=== PATIENT | male | born 1940 | race Caucasian/White ===

== ENCOUNTER 2019-02-21 08:00 | Outpatient (CLI) | payer MEDICARE, OTHER ==
[2019-02-21 18:49] LABS: BASOPHILS # (AUTO) 0.1 10^3/uL (0.0-0.1); BASOPHILS % (AUTO) 1.1 %; EOSINOPHILS # (AUTO) 0.2 10^3/uL (0.0-0.7); EOSINOPHILS % (AUTO) 2.1 %; HGB - HEMOGLOBIN 16.4 g/dL (14.0-18.0); LYMPHOCYTES # (AUTO) 1.9 10^3/uL (1.5-3.5); LYMPHOCYTES % (AUTO) 26.8 %; MEAN CORPUSCULAR HEMOGLOBIN 30.9 pg (27.0-31.0); MEAN CORPUSCULAR HGB CONC 32.5 g/dL (32.0-36.0); MEAN CORPUSCULAR VOLUME 95.1 fL (80.0-94.0); MEAN PLATELET VOLUME 12.6 fL (7.4-11.4); MONOCYTES # (AUTO) 0.8 10^3/uL (0.0-1.0); MONOCYTES % (AUTO) 10.8 %; NEUTROPHILS # (AUTO) 4.2 10^3/uL (1.5-6.6); NEUTROPHILS % (AUTO) 58.9 %; PLT - PLATELET COUNT 208 10^3/uL (130-450); RED CELL DISTRIBUTION WIDTH 12.2 % (12.0-15.0); WHITE BLOOD COUNT 7.1 x10^3/uL (4.8-10.8)
[2019-02-21 19:31] LABS: CARBON DIOXIDE - CO2 25 mmol/L (21-32); CHLORIDE 103 mmol/L (101-111); SODIUM 139 mmol/L (135-145)
[2019-02-21 19:32] LABS: ALKALINE PHOSPHATASE 60 IU/L (42-121); ALT ALANINE AMINOTRANSFERASE 23 IU/L (10-60); AST ASPARTATE AMINOTRANSFERASE 22 IU/L (10-42); BILIRUBIN,TOTAL 0.9 mg/dL (0.2-1.0); BUN - BLOOD UREA NITROGEN 21 mg/dL (6-20); CALCIUM 8.9 mg/dL (8.5-10.3); CREATININE 0.9 mg/dL (0.6-1.2); GFR - MDRD 82 (>89); GLUCOSE 132 mg/dL (70-100); TOTAL PROTEIN 7.4 g/dL (6.7-8.2)
[2019-02-21 19:33] LABS: ALBUMIN/GLOBULIN RATIO 1.2 (1.0-2.2); CHOL/HDL RATIO 6.1 (<5.0); CHOLESTEROL 221 mg/dL; HDL CHOLESTEROL 36 mg/dL; LDL CHOLESTEROL,CALCULATED 158 mg/dL; LDL/HDL RATIO 4.4 (<3.6); VLDL CHOLESTEROL 27 mg/dL
[2019-02-21 19:46] LABS: CREATININE,URINE 175.4 mg/dL; MICROALBUM/CREATININE RATIO,UR 7.4 ug/mg (<30.0); MICROALBUMIN,URINE 1.3 mg/dL (0-300.0)
[2019-02-21 20:04] LABS: HB2 TOTAL 17.9 g/dL; HEMOGLOBIN A1C 0.93 g/dL; HEMOGLOBIN A1C % 6.9 % (4.6-6.2)
== END 2019-02-21 23:59 | disposition home or self-care (01) ==
LOC: LAB.WCP 08:00
PROVIDERS: ATTEND Family Medicine
DX: E11.65 Type 2 diabetes mellitus with hyperglycemia (principal); I10 Essential (primary) hypertension; E78.5 Hyperlipidemia, unspecified
CPT/HCPCS: 36415; 80053; 80061; 82043; 82570; 83036; 83721; 84443; 85025

== ENCOUNTER 2023-07-28 14:23 | Outpatient (CLI) | payer MEDICARE, OTHER | END 2023-07-28 14:24 | disposition critical access hospital (66) | LOC: EMS 14:23 | DX: R41.0 Disorientation, unspecified (principal); R09.89 Other specified symptoms and signs involving the circulatory and respiratory systems; R29.810 Facial weakness; R53.1 Weakness | CPT/HCPCS: A0425; A0429 ==

== ENCOUNTER 2023-07-28 14:49 | Inpatient (IN) | payer MEDICARE, OTHER ==
--- NOTE | 2023-07-28 14:49 | ED Physician Documentation ---
PD HPI FOCAL NEURO - Stated complaint Stated Complaint: RT SIDE FACIAL DROOP/L SIDED NEGLECT - History obtained from History obtained from: EMS - Additional information Additional information: 82-year-old male presents via EMS for altered mental status with left-sided neglect. The patient was in his usual state of health . Yesterday though reported that he "lifted something very heavy," and last seen normal around 11 PM last night when he went to bed. This morning the noted that he seemed weak, He slept in much longer than normal and he was still in bed when his daughter came over in the early afternoon and felt like he was confused and that "something was wrong." EMS was activated and EMS noted a mild right facial droop as well as left sided neglect. Patient is a limited historian, GCS 14, He is confused and is not sure why he is here today. He tells me that he has not been able to see since he woke up this morning. He denies any other concerns today. He denies any chest pain, no difficulty breathing, no abdominal pain, no nausea vomiting or diarrhea.His tells me he has been treated for a right foot diabetic and infection. He was Receiving hyperbaric therapy for this but apparently stopped a couple weeks ago because "changes in his vision." He was supposed to resume in the next week. Some additional history received later in the evening from son. The patient apparently had a surgery For his right foot diabetic infection a few months ago and may have sustained a small stroke or TIA during the procedure and was apparently combative and confused afterwards. He had been doing well recently though and son saw him last on when he was awake alert active. Patient is normally independent though does not do a lot of physical activity according to son. Review of Systems Unable to obtain: Confused Eyes: reports: Loss of vision PD PAST MEDICAL HISTORY - Past Medical History Past Medical History: Yes Cardiovascular: Deep vein thrombosis Neuro: TIA Endocrine/Autoimmune: Type 2 diabetes Derm: Other (Diabetic wound) - Present Medications Home Medications: Ambulatory Orders Medication Instructions Recorded Confirmed Acetaminophen [Acetaminophen Extra 1 tab PO DAILY 07/28/23 07/28/23 Strength] Apixaban [Eliquis] 1 tab PO DAILY 07/28/23 07/28/23 Doxycycline [Vibramycin] 1 tab PO DAILY 07/28/23 07/28/23 Gentamicin Sulfate 1 applic TOP DAILY 07/28/23 07/28/23 metFORMIN [Glucophage] 1 tab PO BID 07/28/23 07/28/23 - Allergies Allergies/Adverse Reactions: Allergies Allergy/AdvReac Type Severity Reaction Status Date / Time No Known Drug Allergies Allergy Verified 07/28/23 15:26 PD ED PE NORMAL - Vitals Vital signs reviewed: Yes - General General: Other (Oriented x 3 but confused, appears ill but nontoxic.) - HEENT HEENT: Atraumatic, PERRL, Moist mucous membranes, Other (Patient unable to cooperate with EOMI, states that he cannot see.) - Neck Neck: Supple, no meningeal sign, No bony TTP, No adenopathy - Cardiac Cardiac: No murmur, No gallop, Other (Irregular) - Respiratory Respiratory: No respiratory distress, Other (Scattered rhonchi no distress no wheezing) - Abdomen Abdomen: Normal bowel sounds, Soft, Non tender, Non distended - Derm Derm: Normal color, Warm and dry, No rash, Other (Chronic right foot diabetic ulceration.) - Neuro Eye Opening: Spontaneous Motor: Obeys Commands Verbal: Confused GCS Score: 14 - Free text exam Free text exam: Left-sided neglect, I am unable to assess any visual field as patient tells me he cannot see, has a right word gaze, does not move eyes to the left. He does not follow commands in the left arm but does move the left leg with equal strength to the right, normal right arm range of motion. No obvious facial droop. Normal speech. Patient restless, does not answer all questions approp riately. PD ED PE EXPANDED - Neuro Neuro: Confused, LUE (no UE sensation, not following commands), CN deficit, Dyscongugate gaze, Normal speech. No: Normal motor, Normal Sensation, Normal finger nose (unable to coooperate) NIHSS - Time Time: 14:50 - Level of Consciousness Level of consciousness: (0) Alert, Keenly responsive LOC Questions: (1) Answers one Q correctly LOC Commands: (1) Performs one correctly - Gaze Best Gaze: (2) Forced deviation - Visual Visual: (3) Bilateral Hemianopia - Facial Palsy Facial Palsy: (0) Normal, symmetrical movement - Motor Arms (both separate) Motor Arm (right): (4) No movement Motor Arm (left): (0) No drift - Motor Legs (both separate) Motor Leg (right): (0) No drift Motor Leg (left): (0) No drift - Limb Ataxia Limb Ataxia: (2) Present in 2 limbs - Sensory Sensory: (1) Dpjq-ah-ktfnwbud loss - Best Language Best Language: (0) No aphasia - Dysarthria Dysarthria: (0) Normal - Extinction and Inattention (formally neg Extinction and inattention: (2) Profound do-inattention or extinction to more than one modality - Total Score/Results Total Score/Result: 16 Results - Vitals Vitals: Vital Signs - 24 hr 07/28/23 07/28/23 07/28/23 15:17 15:25 16:40 Temperature 37 C 37.1 C 37.2 C Heart Rate 105 H 100 97 Respiratory 25 H 27 H 33 H Rate Blood Pressure 148/86 H 122/106 H 146/92 H O2 Saturation 94 95 95 07/28/23 07/28/23 07/28/23 18:17 18:30 19:40 Temperature Heart Rate 107 H 107 H 109 H Respiratory 21 17 29 H Rate Blood Pressure 144/109 H 162/98 H 134/80 H O2 Saturation 94 95 94 Oxygen O2 Source Room air - EKG (time done) No standard instances EKG releavant findings:: EKG personally interpreted by author of this note. Relevant findings are: Rate: Rate (enter#) (107) Rhythm: Atrial fibrillation QRS: Normal Ischemia: Normal ST segments Computer interpretation: Agree with computer - Labs Labs: Laboratory Tests 07/28/23 07/28/23 07/28/23 15:17 15:17 15:17 WBC 11.2 H RBC 5.33 Hgb 16.5 Hct 51.1 MCV 95.9 H MCH 31.0 MCHC 32.3 RDW 12.9 Plt Count 187 MPV 12.0 H Neut # (Auto) 10.1 H Lymph # (Auto) 0.7 L Valley # (Auto) 0.3 Eos # (Auto) 0.0 Baso # (Auto) 0.0 Absolute Nucleated RBC 0.00 Nucleated RBC % 0.0 PT 12.3 INR 1.1 Sodium 135 Potassium 4.4 Chloride 100 L Carbon Dioxide 26 Anion Gap 9.0 BUN 18 Creatinine 1.0 Estimated GFR (MDRD) 72 L Glucose 173 H Calcium 9.4 Total Bilirubin 0.7 AST 14 ALT 7 L Alkaline Phosphatase 51 Troponin I High Sens 7.0 Total Protein 7.2 Albumin 4.3 Globulin 2.9 Albumin/Globulin Ratio 1.5 Lipase 13 Urine Color Urine Clarity Urine pH Ur Specific [place] Urine Protein Urine Glucose (UA) Urine Ketones Urine Occult Blood Urine Nitrite Urine Bilirubin Urine Urobilinogen Ur Leukocyte Esterase Urine RBC Urine WBC Ur Squamous Epith Cells Urine Bacteria Urine Culture Comments Nasal Influenza B PCR Nasal Influenza A PCR Nasal RSV (PCR) Nasal SARS-CoV-2 (PCR) 07/28/23 07/28/23 16:35 17:20 WBC RBC Hgb Hct MCV MCH MCHC RDW Plt Count MPV Neut # (Auto) Lymph # (Auto) Valley # (Auto) Eos # (Auto) Baso # (Auto) Absolute Nucleated RBC Nucleated RBC % PT INR Sodium Potassium Chloride Carbon Dioxide Anion Gap BUN Creatinine Estimated GFR (MDRD) Glucose Calcium Total Bilirubin AST ALT Alkaline Phosphatase Troponin I High Sens Total Protein Albumin Globulin Albumin/Globulin Ratio Lipase Urine Color YELLOW Urine Clarity CLEAR Urine pH 7.0 Ur Specific [place] 1.020 Urine Protein TRACE Urine Glucose (UA) 250 H Urine Ketones 15 H Urine Occult Blood NEGATIVE Urine Nitrite NEGATIVE Urine Bilirubin NEGATIVE Urine Urobilinogen 0.2 (NORMAL) Ur Leukocyte Esterase NEGATIVE Urine RBC 0-5 Urine WBC 0-3 Ur Squamous Epith Cells NONE SEEN Urine Bacteria Rare Urine Culture Comments NOT INDICATED Nasal Influenza B PCR NOT DETECTED Nasal Influenza A PCR NOT DETECTED Nasal RSV (PCR) NOT DETECTED Nasal SARS-CoV-2 (PCR) NOT DETECTED - Rads (name of study) No standard instances Relevant Findings:: Final report received PD Medical Decision Making - ED course Complexity details: reviewed old records, reviewed results, re-evaluated patient, considered differential, d/w patient, d/w family ED course: 82-year-old male presented with altered mental status today, last known well was around 7 PM last night. On exam, he is exhibiting left-sided neglect, is mildly confused, restless. We were concerned for stroke and patient went directly to CT scanAfter I evaluated him in the ambulance. CT scan showed a suspected temporal lobe infarct. There is no sign of hemorrhage as the patient is on Eliquis. Therefore did additional workup and the patient was sent for MRI which confirmed a large temporal lobe infarct. Patient's labs are fairly reassuring, chest x-ray reveals Possible pulmonary edema versus pneumonia atelectasis your aspiration. He has not required supplemental oxygen Here. At the patient is in atrial fibrillation/flutter, it is not known if this is new for him, he is on Eliquis as an outpatient though this may be for a prior DVT. Family is not aware if he has atrial fibrillation And last EKG in our system is about 10 years ago which showed normal sinus rhythm. Patient does not appear to be on any rate controlling medication at home so this may be a new diagnosis of atrial fibrillation. We did give the patient 5 mg of IV metoprolol and are monitoring his heart rate at this time. His blood pressure has been stable. I did go ahead and obtain blood cultures and started the patient on ceftriaxone and azithromycin for possible pneumonia seen on chest x-ray. I think less likely given reassuring lab work and lack of supplemental the patient was not a candidate for intervention given the duration of symptoms and last known well as well as being on Eliquis. He will require hospitalization however for occupational therapy, physical therapy and additional stroke workup, likely echocardiogram, and monitoring of his possibly new atrial fibrillation. I have updated his son at the bedside and have requested admit from the hospitalist service. Of note patient did receive 1 mg of IV Haldol and 1 mg of IV Ativan prior to MRI. He tolerated MRI well and post MRI neuro examIs unchanged. The patient does appear to have more is actually somewhat improved, the patient does appear to be moving the left arm more but continues to have left-sided neglect and near complete visual field deficit. Departure - Departure Disposition: [facility] DC/Xfer Clinical Impression: Altered mental status Qualifiers: Altered mental status type: unspecified Qualified Code(s): R41.82 - Altered mental status, unspecified Cerebrovascular accident (CVA) Qualifiers: CVA mechanism: other Qualified Code(s): I63.89 - Other cerebral infarction Atrial fibrillation Qualifiers: Atrial fibrillation type: unspecified Qualified Code(s): I48.91 - Unspecified atrial fibrillation CHF (congestive heart failure) Qualifiers: Heart failure type: unspecified Heart failure chronicity: unspecified Qualified Code(s): I50.9 - Heart failure, unspecified Community acquired pneumonia Qualifiers: Lung location: unspecified part of lung Condition: Good Forms: PCP List
[2023-07-28 15:23] LABS: BASOPHILS % (AUTO) 0.3 %; HCT - HEMATOCRIT 51.1 % (42.0-52.0); HGB - HEMOGLOBIN 16.5 g/dL (14.0-18.0); LYMPHOCYTES # (AUTO) 0.7 10^3/uL (1.5-3.5); LYMPHOCYTES % (AUTO) 5.9 %; MEAN CORPUSCULAR HGB CONC 32.3 g/dL (32.0-36.0); MEAN CORPUSCULAR VOLUME 95.9 fL (80.0-94.0); MONOCYTES # (AUTO) 0.3 10^3/uL (0.0-1.0); MONOCYTES % (AUTO) 2.8 %; NEUTROPHILS # (AUTO) 10.1 10^3/uL (1.5-6.6); NEUTROPHILS % (AUTO) 90.6 %; PLT - PLATELET COUNT 187 10^3/uL (130-450); RED BLOOD COUNT 5.33 10^6/uL (4.70-6.10); RED CELL DISTRIBUTION WIDTH 12.9 % (12.0-15.0); WHITE BLOOD COUNT 11.2 x10^3/uL (4.8-10.8)
[2023-07-28 15:32] LABS: INR 1.1 (0.8-1.2); PT - PROTHROMBIN TIME 12.3 secs (9.9-12.6)
[2023-07-28 15:36] LABS: ALBUMIN 4.3 g/dL (3.2-5.5); ALBUMIN/GLOBULIN RATIO 1.5 (1.0-2.2); BILIRUBIN,TOTAL 0.7 mg/dL (0.2-1.0); CALCIUM 9.4 mg/dL (8.5-10.3); POTASSIUM 4.4 mmol/L (3.5-4.5); TOTAL PROTEIN 7.2 g/dL (6.4-8.9)
--- NOTE | 2023-07-28 16:35 | XRAY Report ---
PROCEDURE: Chest 1V INDICATIONS: chest pain TECHNIQUE: Two AP views of the chest was acquired. COMPARISON: None. FINDINGS: Surgical changes and devices: None. Lungs and pleura: No pleural effusions or pneumothorax. Bilateral diffuse interstitial prominence an d bibasilar patchy consolidation, left greater than right. Mediastinum: Mediastinal contours appear normal. Heart size is at the upper limits of normal. Aorti c arch is calcified, indicating atherosclerosis. Bones and chest wall: No suspicious bony lesions. Overlying soft tissues appear unremarkable. IMPRESSION: 1.Pulmonary edema with borderline enlarged cardiomegaly which may be secondary to heart failure. Cons ider correlation with ECHO. 2.Bibasilar patchy consolidation, left greater than right, may represent atelectasis, aspiration and/ or pneumonia. Reviewed by: Oralia Madsen MD on 07/28/2023 4:34 PM PST Approved by: Oralia Madsen MD on 07/28/2023 4:34 PM PST Station ID: [id number]
--- NOTE | 2023-07-28 16:45 | CT Report ---
PROCEDURE: HEAD WO INDICATIONS: suspected stroke, left sided deficits TECHNIQUE: Noncontrast 4.5 mm thick angled axial sections acquired from the foramen magnum to the vertex. For r adiation dose reduction, the following was used: automated exposure control, adjustment of mA and/or kV according to patient size. COMPARISON: None. FINDINGS: Image quality: Excellent. CSF spaces: Basal cisterns are patent. No extra-axial fluid collections. Ventricles are normal in size and shape. Brain: Focal low density can be seen involving the inferior aspect of the right temporal lobe, as see n on series 4 image 28 and on series 10 image 51. No midline shift. No intracranial masses or hemorrhage. Barrios-white matter interface is normal. Sym metric calcification of the basal ganglia can be seen, which is considered to be within normal limits for age. Focal calcification can also be seen involving the inferomedial right frontal lobe, as on series 4 image 22, which is regarded to be benign. Skull and face: Calvarium and visualized facial bones are intact, without suspicious lesions. Sinuses: Visualized sinuses and mastoids are clear. IMPRESSION: These imaging findings are highly suspicious for a subacute infarction (days in age) involving the ri ght temporal lobe. No findings of hemorrhagic conversion can be seen. If there is strong clinical concern for a stroke, please consider a dedicated brain MRI for further e valuation (assuming that there is no contraindication to MRI). Reviewed by: Abhi Talavera MD on 07/28/2023 3:44 PM [facility] Approved by: Abhi Talavera MD on 07/28/2023 3:44 PM [facility] Station ID: [id number]
[2023-07-28 16:48] LABS: BILIRUBIN,URINE NEGATIVE (NEGATIVE); GLUCOSE, URINE (UA) 250 mg/dL (NEGATIVE); KETONES,URINE (UA) 15 mg/dL (NEGATIVE); LEUKOCYTE ESTERASE, URINE NEGATIVE (NEGATIVE); NITRITE,URINE NEGATIVE (NEGATIVE); OCCULT BLOOD,URINE NEGATIVE (NEGATIVE); PROTEIN,URINE TRACE mg/dL (NEGATIVE); UROBILINOGEN,URINE 0.2 (NORMAL) E.U./dL (NORMAL)
[2023-07-28 16:49] LABS: CLARITY,URINE CLEAR (CLEAR)
[2023-07-28 16:58] LABS: BACTERIA,URINE Rare /HPF (None Seen); RBC,URINE 0-5 /HPF (0-5); SQUAMOUS EPITHELIAL CELL,UR NONE SEEN (<= Few); WBC,URINE 0-3 /HPF (0-3)
[2023-07-28] MEDS ORDERED: HALOPERIDOL 5 MG/ML VIAL IVP STA (17:16)
[2023-07-28] MEDS ORDERED: LORazepam 2 MG/ML VIAL IVP STA (18:35)
[2023-07-28 18:47] LABS: INFLUENZA A- RESP PCR PANEL NOT DETECTED; INFLUENZA B - RESP PCR PANEL NOT DETECTED; RSV- RESP PCR PANEL NOT DETECTED; SARS-CoV-2 -RESP PCR PANEL NOT DETECTED
[2023-07-28] MEDS ORDERED: cefTRIAXone 2 GM in SODIUM CHLORIDE 0.9% MINIBAG 100 ML IV STA (18:49)
[2023-07-28] MEDS ORDERED: AZITHROMYCIN INJ 500 MG in SODIUM CHLORIDE 0.9% 250 ML IV STA (18:49)
[2023-07-28] MEDS ORDERED: METOPROLOL 5 MG/5 ML VIAL IVP STA ×2 (18:50→20:03)
--- NOTE | 2023-07-28 19:51 | MRI Report ---
PROCEDURE: BRAIN WO INDICATIONS: subacute stroke? TECHNIQUE: Noncontrast axial T1 spin echo, axial T2 fast spin echo, sagittal and axial FLAIR, coronal T2 fast sp in echo, axial gradient echo, axial diffusion and ADC through the brain. COMPARISON: Head CT performed the same day FINDINGS: Image quality: Excellent. CSF Spaces: Basal cisterns are patent. No extra-axial fluid collections. Ventricles are normal in size and shape. Brain: No intracranial masses or hemorrhage. Barrios/white matter interface is normal. Brainstem appe ars normal. There is a large area of restricted diffusion involving much of the right temporal lobe e xtending into the right posterior parietal region. There is a mildly increased T2 signal of the ramos x and loss of sulcation spur. Findings are a background of periventricular T2 hyperintensity and smal l right parietal lacunar infarct. No T1 signal to suggest acute hemorrhage. Normal intravascular flow voids are present. Skull and face: Calvarium has normal marrow signal. Orbits appear normal. Sinuses: Sinuses and mastoids are clear. IMPRESSION: 1. Findings suggestive of large right temporal lobe infarct without hemorrhage. Reviewed by: Irene Eli MD on 07/28/2023 7:50 PM PST Approved by: Irene Eli MD on 07/28/2023 7:50 PM PST Station ID: [id number]
[2023-07-28] MEDS ORDERED: cefTRIAXone 2 GM VIAL ONE (20:00)
[2023-07-28] MEDS ORDERED: ASPIRIN CHEW 81 MG TABLET PO STA (20:32)
[2023-07-28] MEDS ORDERED: ASPIRIN 300 MG SUPP PR STA (21:03)
[2023-07-28] MEDS ORDERED: iohexoL-300 100 ML VIAL IVP ONE (22:28)
--- NOTE | 2023-07-28 22:54 | CT Report ---
PROCEDURE: CT angiogram of head and neck INDICATIONS: Known CVA TECHNIQUE: After the administration of intravenous contrast, 1 mm thick sections acquired from the aortic arch t hrough the [place]. 3-dimensional nahyztm-fipohwejb-eeqhjvttib (MIP) and/or volume renderin g reformats were acquired of the central intracranial vasculature and neck separately. For radiation dose reduction, the following was used: automated exposure control, adjustment of mA and/or kV acco rding to patient size. CONTRAST: Intravenous contrast was administered COMPARISON: CT head 07/20/2023, MRI brain 07/20/2023 FINDINGS: Exam is nondiagnostic as there is patient motion artifact. Additionally, contrast extravasated and no contrast is seen on the current exam. Ordering provider in the emergency department was notified of extravasation. Previously seen hypodensity in the right temporal lobe is not visualized on current exam. Visualized neck soft tissues demonstrate no gross abnormalities. Degenerative changes of the visualized spine. No acute osseous abnormality.. IMPRESSION: Nondiagnostic exam due to contrast extravasation and motion artifact. Reviewed by: Carolyn Eng MD on 07/28/2023 10:53 PM PST Approved by: Carolyn Eng MD on 07/28/2023 10:53 PM PST Station ID: [id number]
[2023-07-28] MEDS ORDERED: ONDANSETRON 4 MG/2 ML VIAL IVP PRN (23:35)
[2023-07-28] MEDS ORDERED: SODIUM CHLORIDE 0.9% 1,000 ML IV SCH (23:45)
[2023-07-28] MEDS ORDERED: ACETAMINOPHEN 650 MG SUPP PR PRN (23:49)
[2023-07-29] MEDS: SODIUM CHLORIDE FLUSH 0.9% 10 ML SYRINGE IVP SCH ×3 (01:04→18:18)
[2023-07-29] MEDS ORDERED: hydrALAZINE INJ 20 MG/ML VIAL IVP PRN (01:28)
[2023-07-29] MEDS ORDERED: CEFEPIME 2 GM in SODIUM CHLORIDE 0.9% MINIBAG 100 ML IV SCH ×2 (02:00→21:00)
[2023-07-29] MEDS ORDERED: VANCOMYCIN INJ 2 GM in SODIUM CHLORIDE 0.9% 500 ML IV ONE (03:00)
[2023-07-29] MEDS ORDERED: LORazepam 2 MG/ML VIAL IVP PRN (03:01)
[2023-07-29] MEDS: ACETAMINOPHEN 1,000 MG/100 ML 1,000 MG/100 ML BAG IV PRN ×2 (03:17→11:01)
--- NOTE | 2023-07-29 03:47 | HISTORY & PHYSICAL EXAMINATION ---
Chief Complaint - Chief Complaint Chief Complaint: dysarthria, ams, cva History of Present Illness - History of Present Illness HPI Comment/Other: pt brought in to hospital d/t ams and concern for cva. over the last 24 hours, pt has become weak and altered and having complete L sided neglect. EMS reported possible R facial droop. pt's son states his sister came over to parent's house and noticed pt on the couch and awake but no really responsive. had reported that pt was sleepy and tired all day. pt not fully oriented but answer simple questions and denied any chest pain but feels overall confused. pt's son states that pt had surgery for diabetic foot infection some time back and during that time he also suffered a stroke. pt is normally independent and per son, he was doing fine around kristopher time. History - Past Medical History Cardiovascular: reports: Deep vein thrombosis Neuro: reports: TIA Endocrine/Autoimmune: reports: Type 2 diabetes Derm: reports: Other (Diabetic wound) Meds/Allgy - Home Medications Home Medications: Ambulatory Orders Medication Instructions Recorded Confirmed Acetaminophen [Acetaminophen Extra 1 tab PO DAILY 07/28/23 07/28/23 Strength] Apixaban [Eliquis] 1 tab PO DAILY 07/28/23 07/28/23 Doxycycline [Vibramycin] 1 tab PO DAILY 07/28/23 07/28/23 Gentamicin Sulfate 1 applic TOP DAILY 07/28/23 07/28/23 metFORMIN [Glucophage] 1 tab PO BID 07/28/23 07/28/23 - Allergies Allergies/Adverse Reactions: Allergies Allergy/AdvReac Type Severity Reaction Status Date / Time No Known Drug Allergies Allergy Verified 07/28/23 15:26 Review of Systems - Other Findings Other Findings: unable to obtain fully at this time d/t ams and cva Exam - Vital Signs Vital Signs: Vital Signs x48h Temp Pulse Pulse Resp BP BP Pulse Ox 07/29/23 03:00 39.2 C H 117 H 25 H 149/63 H 96 07/29/23 02:00 39.3 C H 90 23 132/91 H 95 07/29/23 01:00 39.3 C H 110 H 24 183/123 H 94 07/29/23 00:45 115 H 21 158/99 H 94 07/29/23 00:26 38.6 C H 179/120 H 07/29/23 00:00 108 H 25 H 132/75 H 94 07/28/23 23:00 120 H 25 H 166/93 H 95 07/28/23 22:00 124 H 25 H 174/126 H 95 07/28/23 21:00 37.9 C 123 H 24 157/121 H 97 07/28/23 20:00 111 H 25 H 176/98 H 96 - Physical Exam Comments/Other: gen - awake, alert, not oriented or able to converse fully heent - eomi, dysarthric speech noted heart - per ed charting lungs - per ed charting abd - soft, nt neuro - L sided neglect in setting of cva Conclusion/Plan - Lab Results Fish Bones: 07/28/23 15:17 07/28/23 15:17 - Other Other Results/Comments: pt with - - R temporal CVA with h/o cva and dvt CTA head/neck inconclusive given motion artifact continue with permissive htn and eliquis held for now on-call neuro ok with keeping pt here in icu follow stroke protocol - pna concern for possible aspiration in setting of above on vanc + cefepime covid and flu NEG - rapid a-fib contributory to and in setting of above blood thinner held for now d/t cva and concern for hemorrhagic conversion monitor for now, with rate currently in low 100s will check 2d echo, trop is negative on-call cardio ok with keeping pt here in icu - t2dm with hyperglycemia exacerbated in setting of above ssi, check a1c f/u labs, replete electrolytes further orders per clinical course
--- NOTE | 2023-07-29 04:41 | ED Physician Documentation ---
ED Addendum - Addendum Addendum: 07/29/23 04:38 It was brought to my attention by nursing staff that the IV site had blown during the attempt to do CTA on the patient had no access vascularly. The patient had been an extremely difficult IV placement with multiple attempts unsuccessfully by nursing staff. They felt they were out of options and asked if I could place a central line. The patient was quite agitated and furthermore, had left-sided neglect. He continually was attempting to turn onto his right side with his left arm flopping over. He could not relax his shoulder and as such, accessing either the IJ or the subclavian veins on either side would be difficult even if the patient held still in that position. However, patient was agitated and very restless and I felt that given the circumstances, it would be easier to position and keep his legs still and furthermore, present a lower risk to the patient in his current condition if I placed a femoral line. As such, the patient was sterilely prepped and draped, local anesthesia applied, and femoral vein accessed just medial to the patient's femoral pulse. The guidewire did go and without resistance, as did the catheter. Good, dark, nonpulsatile blood had returned upon initially accessing the vein, and good blood return was also noted through the catheter ports. Line was secured and sterilely dressed. The patient had already been interviewed by the hospitalist and was sent to CTA before being transferred to the floor.
[2023-07-29 05:13] LABS: BASOPHILS % (AUTO) 0.2 %; HCT - HEMATOCRIT 45.8 % (42.0-52.0); HGB - HEMOGLOBIN 15.1 g/dL (14.0-18.0); LYMPHOCYTES # (AUTO) 1.2 10^3/uL (1.5-3.5); LYMPHOCYTES % (AUTO) 9.2 %; MEAN CORPUSCULAR HEMOGLOBIN 31.1 pg (27.0-31.0); MEAN CORPUSCULAR VOLUME 94.4 fL (80.0-94.0); MEAN PLATELET VOLUME 12.8 fL (7.4-11.4); MONOCYTES % (AUTO) 7.7 %; NEUTROPHILS # (AUTO) 10.6 10^3/uL (1.5-6.6); NEUTROPHILS % (AUTO) 82.5 %; PLT - PLATELET COUNT 197 10^3/uL (130-450); RED BLOOD COUNT 4.85 10^6/uL (4.70-6.10); RED CELL DISTRIBUTION WIDTH 13.1 % (12.0-15.0); WHITE BLOOD COUNT 12.8 x10^3/uL (4.8-10.8)
[2023-07-29 05:20] LABS: PARTIAL THROMBOPLASTIN TIME 28.5 secs (24.9-33.3)
[2023-07-29 05:24] LABS: CALCIUM, IONIZED 1.09 mmol/L (1.15-1.33); VBG PH 7.376 (7.31-7.41)
[2023-07-29 05:25] LABS: INR 1.3 (0.8-1.2); PT - PROTHROMBIN TIME 14.3 secs (9.9-12.6)
[2023-07-29 05:37] LABS: ALBUMIN/GLOBULIN RATIO 1.7 (1.0-2.2); BILIRUBIN,TOTAL 0.7 mg/dL (0.2-1.0); CALCIUM 8.7 mg/dL (8.5-10.3); CREATININE 1.1 mg/dL (0.6-1.3); MAGNESIUM 1.6 mg/dL (1.7-2.3); POTASSIUM 3.8 mmol/L (3.5-4.5); TOTAL PROTEIN 6.4 g/dL (6.4-8.9)
[2023-07-29] MEDS ORDERED: CALCIUM GLUC 1,000MG/50ML-NACL 1,000 MG/50 ML BAG IV ONE (05:39)
[2023-07-29] MEDS ORDERED: MAGNESIUM SULFATE 2 GRAM 2 GM/50 ML BAG IV ONE (05:39)
[2023-07-29] MEDS ORDERED: POTASSIUM CHLOR 20 MEQ/100 ML 20 MEQ/100 ML BAG IV ONE ×3 (05:39→15:39)
[2023-07-29] MEDS: INSULIN REGULAR HUMAN 300 UNIT/3 ML VIAL SUBQ SCH ×3 (06:30→18:35)
--- NOTE | 2023-07-29 07:34 | PHARMACY PROGRESS NOTE ---
- Therapy Status Vancomycin regimen day #: 2 Therapy status: Awaiting steady state Basis for treatment: Empirical Treatment indication: ASPIRATION PNEUMONIA Trough goal: AUC: 400-600 Concurrent antibiotics: CEFEPIME 2G Q8H - BHAVESH Risk Risk level for Acute Kidney Injury: High Acute Kidney Injury risk factors: Chronic baseline hypertension, Diabetes, Admi ssion to ICU - Monitoring and Recommendation Clinical response to treatment: I&O Previous 24 hours 07/27/23 07/28/23 07/29/23 23:59 23:59 23:59 Intake Total 350 800 Output Total 725 Balance 350 75 Lab Results 07/29/23 07/28/23 04:24 15:17 BUN 19 18 Creatinine 1.1 1.0 Estimated GFR (MDRD) 64 L 72 L Monitoring plan: Daily serum creatinine Next trough due prior to maintenance dose #: 2 Next trough due (date/time): 07/30/23 3:00 Areas for additional monitoring: Therapy de-escalation based on culture results, Acute Kidney Injury Pharmacy recommendation: Continue current regime
[2023-07-29] MEDS ORDERED: DEXTROSE 5%-0.9% NACL 1,000 ML IV SCH (08:00)
--- NOTE | 2023-07-29 08:27 | PROVIDER PROGRESS NOTE ---
Hospitalist Cross-cover Note - Cross-Cover Note Cross-Cover Note: 0800 This morning I have been updated by the RN about the following: Patient has 743 mL urinary retention on bladder scan Patient has diabetic left foot ulcer that is draining green fluid Patient just spiked a temperature of 39.3 C. His resting heart rate is 120 and rapid A-fib No further aspirin was ordered for his stroke by admitting Telemedicine Dr Patient has a femoral line, for his IV access, placed by ER doctor Patient is n.p.o. due to obtundation and he is a diabetic. His ordered IV fluids are NS, without D5 Assessment/Plan: 1) Acute CVA We have no field service technician here today or for the next 4 days to obtain an echo Because his CT angio head and neck were inconclusive, I will order carotid Doppler I will order continued aspirin per rectum daily Add neurochecks every 4 hours 2) Afib with RVR Begin scheduled IV Lopressor 2.5 every 6 hours for rate control Remain off the anticoagulation for the next 24 hours to prevent hemorrhagic conversion of the stroke 3) Acute urinary retention I will order a Muro insertion for this patient who is in critical condition 5) DM Type 2 I will change his iv fluids to D5 NS and order POC glucose checks every 6 hours and sliding scale insulin coverage and hypoglycemia protocol 6) Diabetic foot ulcer I will order wound swab culture by RN I will order General Surgery consult to evaluate if debridement is needed I will change his empiric IV Vanco and cefepime to empiric IV Zosyn (for anaerobic coverage) Vanco 1155 Dr Duran (ID at [facility]) who has been his provider, called here (her cell: [phone]) to give us his complex PMH and give ID recommendations, after pt's called Dr Duran. This patient has a history of PVD. He underwent a left lower extremity fem-pop bypass i May 2023 at [place] which failed and had to be redone. They used his right arm blood vessel for this. He had a complication of him having a stroke. The patient has had osteomyelitis of the left foot for which she treats him, he was on IV antibiotics then put on p.o. Linezolid and on Doxycycline suppressive therapy for Pseudomonas plus topical Gentamicin cream for suppressing Pseudomonas overgrowth. He was also getting hyperbaric oxygen treatment of the left leg at the [facility] which she finished [address] Duran saw the foot 2 weeks ago which looked like it was stable and healing. I reviewed with Dr. Duran his current presentation and the ongoing fever, his mild elevation of WBC, CXR result, appearance of foot wound, and the admitting provider's choice of antibiotics. She recommends we use iv Cefepime, Vanco and Flagyl. She recommends following his CRP, since his last CRP, followed by her, was 0.8. She recommends a consult from our Wound clinic. I said that I ordered a General Surgery consult to look at the wound, since wound clinic does not do inpatient consults. She said she personally called the Wound clinic here today and asked them to have them do the consult. She recommends a foot x-ray to look at the bone. If the wound or the foot start to look worse than today, then we should consider getting an orthopedic consult to consider amputation. Additional Assessment/Plan: 6) Osteomyelitis Plan: All the above were ordered. I spoke to Dr Nash (Gen Surg), since possibly no MD is at Wound clinic today (since today is a Tue before the ) 1300 I updated the at bedside about all the above. Daughter was also at bedside. The XRay of the foot does show changes of osteo, no abscess suspected. said that patient wants to be a DNR. Additional Assessment/Plan: 7) Obtunded Cont supportive care and watch if he has any recovery from the stroke Will discuss in 24 hrs, as may want to start Comfort Measures then and have him start with Hospice. 1800 ICU Nurse reported that pt is oliguric: mann output the last 3 hrs is 18, 14, 20 ml/hr only. Additional Assessment/Plan: (8) Oliguria I will order a saline 500 cc bolus I will increase maintenace fluids from 75 cc/hr to 100 cc/hr Follow BMP daily Avoid nephrotoxins CRITICAL CARE TIME SPENT: 70 min (reviewing chart, placing orders, checking results, seeing patient, speaking with Dr Duran, speaking to Dr Nash. speaking with and daughter, rechecking on patient)
[2023-07-29] MEDS ORDERED: LIDOCAINE 2% URO-JET 5 ML SYRINGE UR ONE (08:34)
[2023-07-29] MEDS ORDERED: PIPERACILLIN/TAZOBACTAM 3.375 GM in SODIUM CHLORIDE 0.9% MINIBAG 100 ML IV SCH ×2 (09:00→12:00)
[2023-07-29] MEDS: ASPIRIN 300 MG SUPP PR SCH (09:09)
[2023-07-29] MEDS: PANTOPRAZOLE 40 MG VIAL IVP SCH (09:10)
[2023-07-29] MEDS: SODIUM CHLORIDE FLUSH 0.9% 10 ML SYRINGE IVP PRN ×4 (09:18→18:17)
[2023-07-29 09:40] LABS: CALCIUM, IONIZED 1.13 mmol/L (1.15-1.33); VBG PH 7.396 (7.31-7.41)
[2023-07-29 09:53] LABS: MAGNESIUM 2.1 mg/dL (1.7-2.3); POTASSIUM 3.8 mmol/L (3.5-4.5)
[2023-07-29] MEDS ORDERED: CYANOCOBALAMIN 1,000 MCG/ML VIAL IM ONE (10:43)
--- NOTE | 2023-07-29 11:14 | PHARMACY PROGRESS NOTE ---
- Best Possible Medication History Admit Date and Time: 07/28/23 0823 Processed by: Pharmacy Medication History completed: Yes Patient Interview: Pt unable to participate Secondary Source(s): Spouse/Significant other, Insurance records As the person ultimately responsible for medication therapy, providers are able to order a medication from an existing home medication list in [facility] via the "Reconcile Routine" prior to Confirmation of that medication by client support representative. Such practice is discouraged except when the physician, in their clinical judgment, deems that a medical need exists for a medication without regard to previous use.
[2023-07-29 11:38] LABS: ESTIMATED AVERAGE GLUCOSE 134 mg/dL (70-100); HEMOGLOBIN A1c% 6.3 % (4.27-6.07)
[2023-07-29] MEDS: CEFEPIME 2 GM in SODIUM CHLORIDE 0.9% MINIBAG 100 ML IV SCH ×2 (12:11→20:43)
[2023-07-29] MEDS: metroNIDAZOLE 500 MG/100 ML 500 MG/100 ML BAG IV SCH ×2 (12:17→20:29)
--- NOTE | 2023-07-29 12:57 | XRAY Report ---
PROCEDURE: Foot 1-2V LT INDICATIONS: L foot ulcer and Hx of osteo TECHNIQUE: 2 views of the foot were acquired. COMPARISON: None. FINDINGS: Bones: No fractures or dislocations. Osseous erosion in the first medial metatarsal head. No suspici ous bony lesions. Diffuse osseous mineralization. Soft tissues: No suspicious soft tissue calcifications or masses. No radiopaque foreign body within the soft tissues. IMPRESSION: 1.No acute bony abnormality. 2.Osseous erosion in the first medial metatarsal head suggestive of osteomyelitis. 3.No radiopaque foreign body within the soft tissues. Reviewed by: Oralia Madsen MD on 07/29/2023 12:55 PM PST Approved by: Oralia Madsen MD on 07/29/2023 12:55 PM PST Station ID: [id number]
[2023-07-29] MEDS: METOPROLOL 5 MG/5 ML VIAL IVP SCH ×2 (14:08→22:14)
[2023-07-29] MEDS ORDERED: VANCOMYCIN INJ 1.5 GM in SODIUM CHLORIDE 0.9% 500 ML IV SCH (15:00)
[2023-07-29] MEDS: VANCOMYCIN INJ 1 GM in SODIUM CHLORIDE 0.9% 250 ML IV SCH (15:04)
--- NOTE | 2023-07-29 17:25 | CONSULTATION NOTE ---
Referring Provider Name of Referring Provider:: Andrew Neal) Consult Date: 07/29/23 (left foot wound) Chief Complaint - Chief Complaint Chief Complaint: acute CVA, AMS History of Present Illness - Admitted From Admitted From:: ED - History Obtained From Records Reviewed: yes History obtained from: RN, chart, primary team Exam Limitations: patient does not answer questions at this time 2/2 altered mental status - History of Present Illness HPI Comment/Other: Patient admitted with acute CVA. He has a left foot wound which has been followed by an outside wound clinic and Dr. Duran of [facility] at [facility]. She has been treating him for osteomyelitis and has him on chronic IV antibiotics. He has also been treated with hyperbaric oxygen. Since arrival, the patient has been noted to have signs of aspiration pneumonia, and has been febrile and tachycardic. To assess his left foot wound, I have been consulted. History - Past Medical History Cardiovascular: reports: Deep vein thrombosis, Atrial fibrillation Respiratory: reports: Shortness of breath, Sleep apnea Neuro: reports: CVA Endocrine/Autoimmune: reports: Type 2 diabetes GI: reports: None : reports: None Psych: reports: None Musculoskeletal: reports: Scoliosis, Chronic back pain Derm: reports: Other Other Past Medical History: hemhoragic stroke 04/23, vision decrease after hyperbaric treatments, last one mid July 2023. Left foot wound since approximately December 2022 - Past Surgical History Ortho: reports: Hip replacement Cardiovascular: reports: Vascular surgery Meds/Allgy - Home Medications Home Medications: Ambulatory Orders Medication Instructions Recorded Confirmed Apixaban [Eliquis] 1 tab PO BID 07/28/23 07/29/23 Doxycycline [Vibramycin] 1 tab PO BIDWM 07/28/23 07/29/23 Gentamicin Sulfate 1 applic TOP DAILY 07/28/23 07/28/23 metFORMIN [Glucophage] 1 tab PO BID 07/28/23 07/28/23 Metoprolol Tartrate [Lopressor] 25 mg PO BID 07/29/23 07/29/23 - Allergies Allergies/Adverse Reactions: Allergies Allergy/AdvReac Type Severity Reaction Status Date / Time No Known Drug Allergies Allergy Verified 07/28/23 15:26 Review of Systems - Constitutional Constitutional: reports: Other (unable to obtain due to altered mental status) Exam - Vital Signs Reviewed Vital Signs: Yes Vital Signs: Vital Signs x48h Temp Pulse Resp BP BP Pulse Ox O2 Flow Rate 07/29/23 17:00 37.5 C 96 20 148/80 H 98 1 07/29/23 16:00 37.6 C 97 20 140/75 H 97 1 07/29/23 15:00 37.5 C 95 19 141/76 H 97 1 07/29/23 14:08 137/67 H 07/29/23 14:00 37.6 C 114 H 23 137/67 H 93 1 07/29/23 13:00 37.6 C 94 24 123/70 94 1 07/29/23 12:00 37.7 C 97 17 131/69 H 98 07/29/23 11:06 96 07/29/23 11:00 38.1 C H 106 H 21 139/69 H 91 L 07/29/23 10:00 38.1 C H 105 H 20 125/72 96 - Physical Exam General Appearance: positive: No acute distress, Other (resting, stirs to voice) Eyes Bilateral: positive: Other (resting, eyes not assessed) ENT: positive: Dry mucous membranes Neck: positive: Trachea midline Respiratory: positive: No respiratory distress Cardiovascular: positive: Irregularly irregular Peripheral Pulses: positive: 2+ Abdomen: positive: Non-tender Extremities: positive: Other (left foot with mepilex dressing in place. Dressing is c/d/i. When removed, patient has a 1cm wound which is about 3mm deep with a clean appearing base and no drainage on the dressing. There is no sign of necrosis and no surrounding erythema. His foot is warm but not hot.) Neurologic/Psychiatric: positive: Other (resting, stirs to voice, obtunded since presentation) Conclusion and Plan - Lab Results Laboratory Results 07/29/23 14:54: Potassium 3.9 07/29/23 09:30: C-Reactive Protein 0.6 07/29/23 09:30: VBG pH 7.396, Ionized Calcium 1.13 L 07/29/23 09:30: Potassium 3.8, Magnesium 2.1 07/29/23 09:30: Estimat Average Glucose 134 H, Hemoglobin A1c % 6.3 H 07/29/23 04:24: Vitamin B12 187 07/29/23 04:24: B-Natriuretic Peptide 243 H 07/29/23 04:24: VBG pH 7.376, Ionized Calcium 1.09 L 07/29/23 04:24: Phosphorus 3.4 07/29/23 04:24: Lactate Dehydrogenase 143 07/29/23 04:24: Sodium 134 L, Potassium 3.8, Chloride 101, Carbon Dioxide 26, Anion Gap 7.0, BUN 19, Creatinine 1.1, Estimated GFR (MDRD) 64 L, Glucose 156 H, Calcium 8.7, Magnesium 1.6 L, Total Bilirubin 0.7, AST 13, ALT 8 L, Alkaline Phosphatase 42, Total Protein 6.4, Albumin 4.0, Globulin 2.4, Albumin/Globulin Ratio 1.7 07/29/23 04:24: PT 14.3 H, INR 1.3 H, APTT 28.5 07/29/23 04:24: WBC 12.8 H, RBC 4.85, Hgb 15.1, Hct 45.8, MCV 94.4 H, MCH 31.1 H, MCHC 33.0, RDW 13.1, Plt Count 197, MPV 12.8 H, Neut # (Auto) 10.6 H, Lymph # (Auto) 1.2 L, [place] # (Auto) 1.0, Eos # (Auto) 0.0, Baso # (Auto) 0.0, Absolute Nucleated RBC 0.00, Nucleated RBC % 0.0 07/29/23 00:30: Nasal Screen MRSA (PCR) NEGATIVE 07/28/23 19:50: Troponin I High Sens 10.7 07/28/23 17:20: Nasal Influenza B PCR NOT DETECTED, Nasal Influenza A PCR NOT DETECTED, Nasal RSV (PCR) NOT DETECTED, Nasal SARS-CoV-2 (PCR) NOT DETECTED 07/28/23 16:35: Urine Color YELLOW, Urine Clarity CLEAR, Urine pH 7.0, Ur Specific [place] 1.020, Urine Protein TRACE, Urine Glucose (UA) 250 H, Urine Ketones 15 H, Urine Occult Blood NEGATIVE, Urine Nitrite NEGATIVE, Urine Bilirubin NEGATIVE, Urine Urobilinogen 0.2 (NORMAL), Ur Leukocyte Esterase NEGATIVE, Urine RBC 0-5, Urine WBC 0-3, Ur Squamous Epith Cells NONE SEEN, Urine Bacteria Rare, Urine Culture Comments NOT INDICATED 07/28/23 15:17: Sodium 135, Potassium 4.4, Chloride 100 L, Carbon Dioxide 26, Anion Gap 9.0, BUN 18, Creatinine 1.0, Estimated GFR (MDRD) 72 L, Glucose 173 H, Calcium 9.4, Total Bilirubin 0.7, AST 14, ALT 7 L, Alkaline Phosphatase 51, Troponin I High Sens 7.0, Total Protein 7.2, Albumin 4.3, Globulin 2.9, Albumin/Globulin Ratio 1.5, Lipase 13 07/28/23 15:17: PT 12.3, INR 1.1 07/28/23 15:17: WBC 11.2 H, RBC 5.33, Hgb 16.5, Hct 51.1, MCV 95.9 H, MCH 31.0, MCHC 32.3, RDW 12.9, Plt Count 187, MPV 12.0 H, Neut # (Auto) 10.1 H, Lymph # (Auto) 0.7 L, [place] # (Auto) 0.3, Eos # (Auto) 0.0, Baso # (Auto) 0.0, Absolute Nucleated RBC 0.00, Nucleated RBC % 0.0 - Diagnostic Imaging Results Diagnostic Imaging Results: positive: Final report reviewed Diagnostic Imaging Results Comments: L foot XR today shows changes in the left 1st metatarsal consistent with osteomyelitis. I do not have prior films available for comparison. - Consultation Note Consultation Note: 82 y/o M with acute CVA and AMS. I am consulted to assess left foot, chronic diabetic wound. -wound base appears healthy, no significant drainage, no necrotic tissue, no sign of active cellulitis. - XR does continue to show changes consistent with osteomyelitis, for which the patient is chronically being treated. Recommend continuing outpatient antibiotic regimen. - CRP is wnl and stable from recent studies - Patient has had fevers and leukocytosis since presentation but is also has suspected aspiration pneumonia. If he has no other source of infection, and appears to be worsening, the only "debridement" that would be able to eliminate his foot as a source for infection would be an amputation. I do not preform these operations, and recommend orthopedic consultation if further consideration for amputation is requested, understanding that the patient is a very poor surgical candidate at this time. General surgery will follow peripherally. Please call with additional questions or concerns.
[2023-07-29] MEDS ORDERED: SODIUM CHLORIDE 0.9% 500 ML IV ONE (17:59)
[2023-07-29] MEDS: DEXTROSE 5%-0.9% NACL 1,000 ML IV SCH ×2 (18:23→22:10)
[2023-07-30] MEDS: INSULIN REGULAR HUMAN 300 UNIT/3 ML VIAL SUBQ SCH ×2 (00:38→06:16)
[2023-07-30] MEDS: ACETAMINOPHEN 1,000 MG/100 ML 1,000 MG/100 ML BAG IV PRN (02:11)
[2023-07-30] MEDS: SODIUM CHLORIDE FLUSH 0.9% 10 ML SYRINGE IVP SCH ×4 (02:11→23:41)
[2023-07-30] MEDS: VANCOMYCIN INJ 1 GM in SODIUM CHLORIDE 0.9% 250 ML IV SCH ×2 (03:41→16:25)
[2023-07-30] MEDS: CEFEPIME 2 GM in SODIUM CHLORIDE 0.9% MINIBAG 100 ML IV SCH ×3 (03:54→21:36)
[2023-07-30] MEDS: metroNIDAZOLE 500 MG/100 ML 500 MG/100 ML BAG IV SCH ×3 (04:08→21:35)
[2023-07-30 05:08] LABS: MAGNESIUM 1.7 mg/dL (1.7-2.3); PHOSPHORUS 2.6 mg/dL (2.5-5.0); POTASSIUM 3.8 mmol/L (3.5-4.5)
[2023-07-30 05:09] LABS: VBG PH 7.357 (7.31-7.41)
[2023-07-30 05:10] LABS: CALCIUM, IONIZED 1.1 mmol/L (1.15-1.33)
[2023-07-30] MEDS ORDERED: POTASSIUM CHLOR 20 MEQ/100 ML 20 MEQ/100 ML BAG IV ONE (06:00)
[2023-07-30] MEDS: METOPROLOL 5 MG/5 ML VIAL IVP SCH (06:23)
[2023-07-30] MEDS ORDERED: CALCIUM GLUC 1,000MG/50ML-NACL 1,000 MG/50 ML BAG IV ONE (07:00)
[2023-07-30] MEDS ORDERED: MAGNESIUM SULFATE 2 GRAM 2 GM/50 ML BAG IV ONE (08:00)
[2023-07-30] MEDS: INSULIN LISPRO 300 UNIT/3 ML PEN SUBQ SCH ×4 (08:03→21:43)
[2023-07-30 08:09] LABS: BASOPHILS # (AUTO) 0.1 10^3/uL (0.0-0.1); BASOPHILS % (AUTO) 0.5 %; EOSINOPHILS # (AUTO) 0.1 10^3/uL (0.0-0.7); EOSINOPHILS % (AUTO) 0.5 %; HCT - HEMATOCRIT 41.1 % (42.0-52.0); HGB - HEMOGLOBIN 13.7 g/dL (14.0-18.0); LYMPHOCYTES # (AUTO) 1.1 10^3/uL (1.5-3.5); LYMPHOCYTES % (AUTO) 9.9 %; MEAN CORPUSCULAR HGB CONC 33.3 g/dL (32.0-36.0); MEAN PLATELET VOLUME 12.5 fL (7.4-11.4); MONOCYTES # (AUTO) 1.3 10^3/uL (0.0-1.0); MONOCYTES % (AUTO) 11.6 %; NEUTROPHILS # (AUTO) 8.5 10^3/uL (1.5-6.6); NEUTROPHILS % (AUTO) 77.2 %; PLT - PLATELET COUNT 146 10^3/uL (130-450); RED BLOOD COUNT 4.28 10^6/uL (4.70-6.10); RED CELL DISTRIBUTION WIDTH 13.1 % (12.0-15.0)
[2023-07-30] MEDS: ASPIRIN 300 MG SUPP PR SCH (08:12)
[2023-07-30] MEDS: PANTOPRAZOLE 40 MG VIAL IVP SCH (08:13)
[2023-07-30 08:26] LABS: CALCIUM 8.3 mg/dL (8.5-10.3); POTASSIUM 3.9 mmol/L (3.5-4.5)
[2023-07-30 08:38] LABS: CHOLESTEROL 161 mg/dL; HDL CHOLESTEROL 32 mg/dL; LDL CHOLESTEROL,CALCULATED 110 mg/dL; LDL/HDL RATIO 3.4 (<3.6); TRIGLYCERIDES 97 mg/dL (48-352); VLDL CHOLESTEROL 19 mg/dL
[2023-07-30] MEDS ORDERED: ENOXAPARIN 40 MG/0.4 ML SYRINGE SUBQ SCH (09:00)
--- NOTE | 2023-07-30 10:08 | Ultrasound Report ---
PROCEDURE: Carotid Doppler Complete INDICATIONS: CVA TECHNIQUE: Color and pulse Doppler interrogation was performed of both carotid systems, with image documentation and velocity measurements. COMPARISON: None. FINDINGS: Right side: Brachial blood pressure: 159/102 mm Hg. Common carotid artery peak systolic velocity: 83 cm/sec. Internal carotid artery peak systolic velocity: 94 cm/sec. Internal carotid artery end diastolic velocity: 29 cm/sec. External carotid artery peak systolic velocity: 232 cm/sec. ICA/CCA peak systolic ratio: 1.1 . Spectral broadening is present. Barrios scale imaging description: Mild atherosclerotic plaque. Percent internal carotid artery stenosis: Less than 50 percent stenosis. Vertebral artery: Flow direction is antegrade. Left side: Brachial blood pressure: 138/69 mm Hg. Common carotid artery peak systolic velocity: 69 cm/sec. Internal carotid artery peak systolic velocity: 164 cm/sec. Internal carotid artery end diastolic velocity: 26 cm/sec. External carotid artery peak systolic velocity: 242 cm/sec. ICA/CCA peak systolic ratio: 2.4 . Barrios scale imaging description: moderate to severe atherosclerotic plaque. Spectral broadening is present Percent internal carotid artery stenosis: 50-69 percent stenosis. Vertebral artery: Flow direction is antegrade. IMPRESSION: 1. In the right internal carotid artery, there is less than 50 percent stenosis based on peak systoli c velocity criteria. 2. In the left internal carotid artery, there is 50-69 percent stenosis based on peak systolic veloci ty criteria. Visually, moderate to severe plaque is present. 3. Antegrade blood flow within the right vertebral artery. 4. Antegrade blood flow within the left vertebral artery. The estimate of stenosis included in the report of the imaging study was calculated using the [facility]-end orsed standards of carotid artery stenosis. Reviewed by: Saul Luna MD on 07/30/2023 10:07 AM [facility] Approved by: Saul Luna MD on 07/30/2023 10:07 AM PST Station ID: [id number]
[2023-07-30] MEDS ORDERED: ACETAMINOPHEN 325 MG TABLET PO PRN (11:04)
[2023-07-30] MEDS ORDERED: DEXTROSE 5%-0.9% NACL 1,000 ML IV SCH (11:05)
[2023-07-30 15:12] LABS: VANCOMYCIN,TROUGH 10.8 ug/mL
--- NOTE | 2023-07-30 15:25 | PROVIDER PROGRESS NOTE ---
Subjective - Subjective Pt reports feeling: Improved (Speaking, interacting, eating) Objective - Vital Signs/Intake & Output Reviewed Vital Signs: Yes Vital Signs: Vital Signs Temp Pulse Resp BP Pulse Ox 07/30/23 14:00 37.1 C 109 H 20 95 07/30/23 13:00 121 H 28 H 155/97 H 94 07/30/23 12:00 101 H 18 150/97 H 94 Intake & Output: Intake & Output 07/27/23 07/28/23 07/29/23 07/30/23 23:59 23:59 23:59 23:59 Intake Total 350 2942 1840 Output Total 1467 1545 Balance 350 1475 295 - Objective General Appearance: positive: No acute distress, Alert Eyes Bilateral: positive: EOMI, No lid inflammation ENT: positive: ENT inspection nml, No signs of dehydration Neck: positive: Nml inspection, No JVD Respiratory: positive: No respiratory distress, Breath sounds nml Cardiovascular: positive: No murmur, Irregularly irregular Abdomen: positive: Non-tender, Nml bowel sounds, No distention Skin: positive: Warm, Dry Extremities: positive: Non-tender, No pedal edema Neurologic/Psychiatric: positive: Oriented x3, CN's nml (2-12), Other (L arm and hand 4/5 strength.) - Lab Results Fish Bones: 07/31/23 04:30 07/31/23 04:30 Other Labs: Lab Results x24hrs 07/30/23 07/30/23 07/30/23 Range/Units 14:49 04:30 04:30 WBC (4.8-10.8) x10^3/uL RBC (4.70-6.10) 10^6/uL Hgb (14.0-18.0) g/dL Hct (42.0-52.0) % MCV (80.0-94.0) fL MCH (27.0-31.0) pg MCHC (32.0-36.0) g/dL RDW (12.0-15.0) % Plt Count (130-450) 10^3/uL MPV (7.4-11.4) fL Neut # (Auto) (1.5-6.6) 10^3/uL Lymph # (Auto) (1.5-3.5) 10^3/uL Carroll # (Auto) (0.0-1.0) 10^3/uL Eos # (Auto) (0.0-0.7) 10^3/uL Baso # (Auto) (0.0-0.1) 10^3/uL Absolute Nucleated RBC x10^3/uL Nucleated RBC % /100WBC VBG pH (7.31-7.41) Ionized Calcium (1.15-1.33) mmol/L Sodium 135 (135-145) mmol/L Potassium 3.9 (3.5-4.5) mmol/L Chloride 104 (101-111) mmol/L Carbon Dioxide 25 (21-32) mmol/L Anion Gap 6.0 (6-13) BUN 17 (6-20) mg/dL Creatinine 1.0 (0.6-1.3) mg/dL Estimated GFR (MDRD) 72 L (>89) Glucose 120 H (74-104) mg/dL Calcium 8.3 L (8.5-10.3) mg/dL Phosphorus (2.5-5.0) mg/dL Magnesium (1.7-2.3) mg/dL C-Reactive Protein (<0.5) mg/dL B-Natriuretic Peptide (5-100) pg/mL Triglycerides 97 (48-352) mg/dL Cholesterol 161 ( - 200) mg/dL LDL Cholesterol, Calc 110 ( - 129) mg/dL VLDL Cholesterol 19 mg/dL HDL Cholesterol 32 L (60 - ) mg/dL LDL/HDL Ratio 3.4 (<3.6) Cholesterol/HDL Ratio 5.0 (<5.0) Vancomycin Trough 10.8 ug/mL 07/30/23 07/30/23 07/30/23 Range/Units 04:30 04:30 04:30 WBC 11.0 H (4.8-10.8) x10^3/uL RBC 4.28 L (4.70-6.10) 10^6/uL Hgb 13.7 L (14.0-18.0) g/dL Hct 41.1 L (42.0-52.0) % MCV 96.0 H (80.0-94.0) fL MCH 32.0 H (27.0-31.0) pg MCHC 33.3 (32.0-36.0) g/dL RDW 13.1 (12.0-15.0) % Plt Count 146 (130-450) 10^3/uL MPV 12.5 H (7.4-11.4) fL Neut # (Auto) 8.5 H (1.5-6.6) 10^3/uL Lymph # (Auto) 1.1 L (1.5-3.5) 10^3/uL Carroll # (Auto) 1.3 H (0.0-1.0) 10^3/uL Eos # (Auto) 0.1 (0.0-0.7) 10^3/uL Baso # (Auto) 0.1 (0.0-0.1) 10^3/uL Absolute Nucleated RBC 0.00 x10^3/uL Nucleated RBC % 0.0 /100WBC VBG pH 7.357 (7.31-7.41) Ionized Calcium 1.10 L (1.15-1.33) mmol/L Sodium (135-145) mmol/L Potassium 3.8 (3.5-4.5) mmol/L Chloride (101-111) mmol/L Carbon Dioxide (21-32) mmol/L Anion Gap (6-13) BUN (6-20) mg/dL Creatinine (0.6-1.3) mg/dL Estimated GFR (MDRD) (>89) Glucose (74-104) mg/dL Calcium (8.5-10.3) mg/dL Phosphorus 2.6 (2.5-5.0) mg/dL Magnesium 1.7 (1.7-2.3) mg/dL C-Reactive Protein (<0.5) mg/dL B-Natriuretic Peptide (5-100) pg/mL Triglycerides (48-352) mg/dL Cholesterol ( - 200) mg/dL LDL Cholesterol, Calc ( - 129) mg/dL VLDL Cholesterol mg/dL HDL Cholesterol (60 - ) mg/dL LDL/HDL Ratio (<3.6) Cholesterol/HDL Ratio (<5.0) Vancomycin Trough ug/mL 07/30/23 07/30/23 07/29/23 Range/Units 04:30 04:30 18:20 WBC (4.8-10.8) x10^3/uL RBC (4.70-6.10) 10^6/uL Hgb (14.0-18.0) g/dL Hct (42.0-52.0) % MCV (80.0-94.0) fL MCH (27.0-31.0) pg MCHC (32.0-36.0) g/dL RDW (12.0-15.0) % Plt Count (130-450) 10^3/uL MPV (7.4-11.4) fL Neut # (Auto) (1.5-6.6) 10^3/uL Lymph # (Auto) (1.5-3.5) 10^3/uL Carroll # (Auto) (0.0-1.0) 10^3/uL Eos # (Auto) (0.0-0.7) 10^3/uL Baso # (Auto) (0.0-0.1) 10^3/uL Absolute Nucleated RBC x10^3/uL Nucleated RBC % /100WBC VBG pH (7.31-7.41) Ionized Calcium (1.15-1.33) mmol/L Sodium (135-145) mmol/L Potassium 4.0 (3.5-4.5) mmol/L Chloride (101-111) mmol/L Carbon Dioxide (21-32) mmol/L Anion Gap (6-13) BUN (6-20) mg/dL Creatinine (0.6-1.3) mg/dL Estimated GFR (MDRD) (>89) Glucose (74-104) mg/dL Calcium (8.5-10.3) mg/dL Phosphorus (2.5-5.0) mg/dL Magnesium (1.7-2.3) mg/dL C-Reactive Protein 0.9 H (<0.5) mg/dL B-Natriuretic Peptide 111 H (5-100) pg/mL Triglycerides (48-352) mg/dL Cholesterol ( - 200) mg/dL LDL Cholesterol, Calc ( - 129) mg/dL VLDL Cholesterol mg/dL HDL Cholesterol (60 - ) mg/dL LDL/HDL Ratio (<3.6) Cholesterol/HDL Ratio (<5.0) Vancomycin Trough ug/mL 07/29/23 Range/Units 14:54 WBC (4.8-10.8) x10^3/uL RBC (4.70-6.10) 10^6/uL Hgb (14.0-18.0) g/dL Hct (42.0-52.0) % MCV (80.0-94.0) fL MCH (27.0-31.0) pg MCHC (32.0-36.0) g/dL RDW (12.0-15.0) % Plt Count (130-450) 10^3/uL MPV (7.4-11.4) fL Neut # (Auto) (1.5-6.6) 10^3/uL Lymph # (Auto) (1.5-3.5) 10^3/uL Carroll # (Auto) (0.0-1.0) 10^3/uL Eos # (Auto) (0.0-0.7) 10^3/uL Baso # (Auto) (0.0-0.1) 10^3/uL Absolute Nucleated RBC x10^3/uL Nucleated RBC % /100WBC VBG pH (7.31-7.41) Ionized Calcium (1.15-1.33) mmol/L Sodium (135-145) mmol/L Potassium 3.9 (3.5-4.5) mmol/L Chloride (101-111) mmol/L Carbon Dioxide (21-32) mmol/L Anion Gap (6-13) BUN (6-20) mg/dL Creatinine (0.6-1.3) mg/dL Estimated GFR (MDRD) (>89) Glucose (74-104) mg/dL Calcium (8.5-10.3) mg/dL Phosphorus (2.5-5.0) mg/dL Magnesium (1.7-2.3) mg/dL C-Reactive Protein (<0.5) mg/dL B-Natriuretic Peptide (5-100) pg/mL Triglycerides (48-352) mg/dL Cholesterol ( - 200) mg/dL LDL Cholesterol, Calc ( - 129) mg/dL VLDL Cholesterol mg/dL HDL Cholesterol (60 - ) mg/dL LDL/HDL Ratio (<3.6) Cholesterol/HDL Ratio (<5.0) Vancomycin Trough ug/mL Assessment/Plan - Problem List (1) Acute CVA (cerebrovascular accident) Impression: The patient started awakening last night, was able to swallow, was able to talk with his by phone. Today he has only L arm weakness, is eating, speaking. Because his CT angio head and neck were inconclusive, I ordered carotid Doppler and that showed moder Bilat cardotid disease Fasting lipids showed an LDL of 110, despite supposedly taking a statin (deidra jiang today said she thinks he was not compliant) Plan: Await Echo result (we have no help desk technician here today or for the next several days to obtain an Echo) Allowing permissive hypertension yesterday and today. Then I will resume his BP meds Holding his oral anticoagulant for 48 hours to prevent hemorrhagic transformation of the stroke and I will resume his anticoagulant tomorrow Continued po aspirin daily Cont high dose statin Cont neurochecks every 4 hours PT and OT richard ordered I brought his up to date at bedside and another daughter at bedside today. It will probably be recommended by PT to have further stroke rehab at SNF (2) Aspiration pneumonia After being admitted from the ER yesterday, he had a fever that lasted for several hours yesterday. The sources appear to be an aspiration pneumonia and possibly his osteomyelitis and diabetic foot ulcer. WBC 11 then 12 yesterday and today WBC is 11 again. Yesterday and today I spoke to his ID specialist, Dr Duran re all his sources of infection. Plan: Remain on empiric iv Vanco, cefepime and Flagyl Cont probiotic (3) Diabetic foot ulcer Yesterday and today I spoke to his ID specialist, Dr Duran re his Hx of the foot ulcer and the osteo, and how both were being treated using Linezolid and Doxycycline and topical Gentamicin cream. The pt "did not allow his to see the wound". Family said he would not allow them to be in charge of any of his meds, and said he is very stubborn. Dr Duran thinks he was not reliable with taking his antibx. A wound swab was sent for culture Appreciate General Surgery consult Plan: Await wound swab cx results Remain on empiric ic Vanco, cefepime and Flagyl Dressing changes every 2 days I discussed need to be compliant and recommended that family should supervise his dosing of meds. Pt said he would think about it. (4) Osteomyelitis Yesterday and today I spoke to his ID specialist, Dr Duran re his Hx of the foot ulcer and the osteo, and how both were being treated with oral Linezolid and on Doxycycline and topical antibx cream, However she suspected he was not compliant with taking the antibx. Today I updated Dr Duran that the XRay did show osteo, but no soft tissue involvement except the ulcer Plan: Remain on empiric ic Vanco, cefepime and Flagyl Dr Duran wants him to get a PICC line and finish treatment of the osteo using iv antibx. Since he will likely need a SNF for stroke rehab, he could get iv antibx at the SNF as well. (5) PVD He underwent a left lower extremity fem-pop bypass in May 2023 at [place] which failed and had to be redone. They used his right arm blood vessel for this. He had a complication of him having a stroke. He needed hyperbaric treatment at [facility] which was recently completed. Plan: Will resume his cardiovascular meds now that he is awake and can swallow (6) Afib with RVR At adm HR was 100-120. I started hism on scheduled IV Lopressor 2.5 every 6 hours for rate control Plan: Will stop iv meds and begin his po meds for rate control Remain off the anticoagulation for the next 24 hours to prevent hemorrhagic conversion of the stroke, I plan on resuming his DOAC tomorrow (7) DM Type 2 His A1c came back at Plan: Start carb controlled solid diet Cont iv fluids D5 NS until assured he is eating Cont POC glucose checks now ac&hs and sliding scale insulin coverage and hypoglycemia protocol (8) Acute urinary retention I ordered a Muro insertion Plan: Cont Muro to monitor I's and O's and will remove tomorrow if stable
[2023-07-30] MEDS ORDERED: SODIUM CHLORIDE 0.9% 250 ML IV ONE (16:16)
[2023-07-30] MEDS: METOPROLOL TARTRATE 25 MG TABLET PO SCH (16:25)
[2023-07-30] MEDS: FAMOTIDINE 20 MG TABLET PO SCH (21:36)
[2023-07-30] MEDS: ATORVASTATIN 40 MG TABLET PO SCH (21:36)
[2023-07-31] MEDS: CEFEPIME 2 GM in SODIUM CHLORIDE 0.9% MINIBAG 100 ML IV SCH ×3 (04:28→19:53)
[2023-07-31] MEDS: VANCOMYCIN INJ 1 GM in SODIUM CHLORIDE 0.9% 250 ML IV SCH ×2 (04:44→15:27)
[2023-07-31] MEDS: metroNIDAZOLE 500 MG/100 ML 500 MG/100 ML BAG IV SCH ×3 (04:44→20:06)
[2023-07-31 05:01] LABS: BASOPHILS # (AUTO) 0.1 10^3/uL (0.0-0.1); BASOPHILS % (AUTO) 0.8 %; EOSINOPHILS # (AUTO) 0.2 10^3/uL (0.0-0.7); EOSINOPHILS % (AUTO) 2.6 %; HCT - HEMATOCRIT 42.6 % (42.0-52.0); HGB - HEMOGLOBIN 14.2 g/dL (14.0-18.0); LYMPHOCYTES # (AUTO) 1.2 10^3/uL (1.5-3.5); LYMPHOCYTES % (AUTO) 12.7 %; MEAN CORPUSCULAR HEMOGLOBIN 31.8 pg (27.0-31.0); MEAN CORPUSCULAR HGB CONC 33.3 g/dL (32.0-36.0); MEAN CORPUSCULAR VOLUME 95.5 fL (80.0-94.0); MEAN PLATELET VOLUME 11.9 fL (7.4-11.4); MONOCYTES % (AUTO) 11.1 %; NEUTROPHILS # (AUTO) 6.6 10^3/uL (1.5-6.6); NEUTROPHILS % (AUTO) 72.6 %; PLT - PLATELET COUNT 139 10^3/uL (130-450); RED BLOOD COUNT 4.46 10^6/uL (4.70-6.10); RED CELL DISTRIBUTION WIDTH 12.8 % (12.0-15.0); WHITE BLOOD COUNT 9.2 x10^3/uL (4.8-10.8)
[2023-07-31 05:18] LABS: CALCIUM 8.7 mg/dL (8.5-10.3); CREATININE 0.9 mg/dL (0.6-1.3); CRP - C-REACTIVE PROTEIN 2.7 mg/dL (<0.5); POTASSIUM 3.9 mmol/L (3.5-4.5)
[2023-07-31] MEDS: INSULIN LISPRO 300 UNIT/3 ML PEN SUBQ SCH ×4 (08:15→21:16)
[2023-07-31] MEDS: APIXABAN 5 MG TABLET PO SCH ×2 (08:16→20:36)
[2023-07-31] MEDS: FAMOTIDINE 20 MG TABLET PO SCH ×2 (08:16→20:36)
[2023-07-31] MEDS: METOPROLOL TARTRATE 25 MG TABLET PO SCH ×2 (08:16→17:22)
[2023-07-31] MEDS: ASPIRIN EC 81 MG TABLET PO SCH (08:16)
--- NOTE | 2023-07-31 08:30 | PROVIDER PROGRESS NOTE ---
Assessment/Plan - Problem List (1) Acute CVA (cerebrovascular accident) Assessment/Plan: The patient presented obtunded, awoke after a day, was able to swallow, speak. He has L arm weakness and L-sided neglect Carotid Doppler and that showed moder Bilat cardotid disease Fasting lipids showed an LDL of 110, despite supposedly taking a statin (daughter said she thinks he was not compliant) We were holding his oral anticoagulant to prevent hemorrhagic transformation of the stroke, but have resumed his DOAC now. Today he is displaying impulsivity and has very poor short term memory Plan: Await Echo result (we have no laundry technician here today or for the next several days to obtain an Echo) Continued po DOAC and aspirin daily Cont high dose statin Will stop neurochecks PT and OT evals ordered. PT saw him yesterday and confirmed L sided neglect and he does need rehab He will be transferred out of ICU today, increase OOB activity I updated the daughter at bedside (2) Poor memory Yesterday the patient was minimally communicative. Overnight he sundown, needed sedatives. He is speaking in full sentences and has a very poor short-term memory. Today he insists that he did not have a stroke and does not believe any of the staff or even his daughter as we discussed his diagnoses The patient jokes to answer when asked questions about why he is here. The daughter at bedside told me that he was also sundowning when he was hospitalized for the femoropopliteal surgery Plan: Start scheduled Haldol Continue with Ativan as needed I will cancel the CIWA protocol. He has no history of alcohol intake for the past 10 years He may need OT cognitive eval if there is no memory improvement (3) Diabetic foot ulcer I spoke to his ID specialist, Dr Duran re his Hx of the foot ulcer and the osteo, and how both were being treated using Linezolid and Doxycycline and topical Gentamicin cream. The pt "did not allow his to see the wound". Family said he would not allow them to be in charge of any of his meds, and said he is very stubborn. Dr Duran thinks he was not reliable with taking his antibx. Yesterday I discussed need to be compliant and recommended that family should supervise his dosing of meds. Pt said he would think about it. A wound swab was sent for culture, results pending Appreciate General Surgery consult, no debridement needed WBC today is 9 but CRP anjana to 2.7. Dr Duran told me his last CRP was 0.8 Final wound cx results today show Pseudomonas aruginosa, resist to Keflex, sens to all other antibx like Cefepime Plan: Remain on iv cefepime Will cont empiric Vanco and Flagyl unless any other bacteria grow Dressing changes every 2 days I will discuss with ID if debridement is needed (4) Osteomyelitis I spoke to his ID specialist, Dr Duran re his Hx of the foot ulcer and the osteo, and how both were being treated with oral Linezolid and on Doxycycline and topical antibx cream. However she suspected he was not compliant with taking the antibx. I updated Dr Duran that the XRay did show osteo, but no soft tissue involvement except the ulcer WBC today is 9 but CRP anjana to 2.7. Dr Duran told me his last CRP was 0.8 Plan: Remain on empiric iv Vanco, cefepime and Flagyl. Await final blood cx results Dr Duran wants him to get a PICC line and finish treatment of the osteo using iv antibx. Since he will need a SNF for stroke rehab, he could get iv antibx at the SNF as well. I will discuss with ID if ortho consult is needed (5) Aspiration pneumonia After being admitted from the ER, he had a fever that lasted for several hours. WBC was 11>> 12>> 11. The sources appear to be an aspiration pneumonia and possibly his osteomyelitis and diabetic foot ulcer. WBC today is 9 but CRP anjana to 2.7 (all labs were reviewed) Plan: Remain on empiric iv Vanco, cefepime and Flagyl, as advised by phone discussion with ID yesterday Cont probiotic (6) PVD He underwent a left lower extremity fem-pop bypass in May 2023 at [facility] which failed and had to be redone. They used his right arm blood vessel for this. He had a complication of him having a stroke. He needed hyperbaric treatment at [facility] which was recently completed. Plan: Cont his cardiovascular meds (7) Afib with RVR At adm HR was 100-120. I started him on scheduled IV Lopressor 2.5 every 6 hours for rate control Plan: Resume his DOAC today I resumed his po meds for rate control Remain on telem (8) DM Type 2 His A1c came back at 6.3, good glu control on home regimen Plan: Cont carb controlled diet I will restart his Glucophage BID Will stop iv fluids of D5 NS Cont POC glucose checks now ac&hs and sliding scale insulin coverage and hypoglycemia protocol (9) Acute urinary retention I had ordered a Muro insertion when he was obtunded Plan: D/C Muro today - Current Meds Current Meds: Current Medications Generic Name Dose Route Start Last Admin Trade Name Michael PRN Reason Stop Dose Admin Apixaban 5 mg 07/31/23 09:00 07/31/23 08:16 Apixaban 5 Mg Tablet PO 5 mg BID SHON Administration Aspirin 81 mg 07/31/23 09:00 07/31/23 08:16 Aspirin Ec 81 Mg Tablet PO 81 mg DAILY SHON Administration Atorvastatin Calcium 80 mg 07/30/23 21:00 07/30/23 21:36 Atorvastatin 40 Mg Tablet PO 80 mg QPM SHON Administration Famotidine 20 mg 07/30/23 21:00 07/31/23 08:16 Famotidine 20 Mg Tablet PO 20 mg BID SHON Administration Vancomycin HCl 1 gm/ Sodium 250 mls @ 167 mls/hr 07/29/23 15:00 07/31/23 04:44 Chloride IV 167 mls/hr Q12H SHON Administration Cefepime HCl 2 gm/ Sodium 100 mls @ 200 mls/hr 07/29/23 12:00 07/31/23 04:28 Chloride IV 200 mls/hr Q8H SHON Administration Metronidazole 500 mg in 100 mls @ 100 mls/hr 07/29/23 12:00 07/31/23 04:44 Flagyl 500 Mg/100 Ml IV 100 mls/hr Q8H SHON Administration Insulin Human Lispro 1 - 5 unit 07/30/23 08:00 07/31/23 08:15 Insulin Lispro 300 Unit/3 Ml Pen SUBQ Not Given 0800,1200,1700,2100 [facility] Protocol Metoprolol Tartrate 25 mg 07/30/23 17:00 07/31/23 08:16 Metoprolol Tartrate 25 Mg Tablet PO 25 mg BIDWM SHON Administration Sodium Chloride 10 ml 07/29/23 01:00 07/30/23 23:41 Sodium Chloride Flush 0.9% 10 Ml Syringe IVP 10 ml 0100,0900,1700 SHON Administration Sodium Chloride 10 ml 07/28/23 23:35 07/29/23 18:17 Sodium Chloride Flush 0.9% 10 Ml Syringe IVP 30 ml PRN PRN Administration NEEDED PER PROVIDER ORDERS - Lab Result Fish Bone Diagrams: 07/31/23 04:30 07/31/23 04:30 - Additional Planning My Orders: My Active Orders 07/30/23 07:56 Blood Glucose Checks - Eating [RC] 0800,1200,1700,2100 Initiate Hypoglycemia Protocol [RC] .protocol 07/30/23 08:00 Insulin Lispro [Humalog Kwikpen U-100] 1 - 5 unit SUBQ 0800,1200,1700,2100 07/30/23 10:22 Central Line Discontinuation [RC] .ONCE 07/30/23 11:04 Acetaminophen [Tylenol] 650 mg PO Q4HR PRN 07/30/23 Dinner DIET [Dysphagia - Minced and Moist] [DIET] 07/30/23 17:00 Metoprolol Tartrate [Lopressor] 25 mg PO BIDWM 07/30/23 21:00 Atorvastatin [Lipitor] 80 mg PO QPM Famotidine [Pepcid] 20 mg PO BID 07/31/23 07:54 Muro Discontinuation [RC] ONCE Telemetry- [RC] Q4HR Transfer [Admit \\ Transfer \\ Status] [RC] .ONCE 07/31/23 09:00 Apixaban [Eliquis] 5 mg PO BID Aspirin EC [Ecotrin] 81 mg PO DAILY 08/01/23 05:00 BMP - BASIC METABOLIC PANEL [CHEM] DAILYLAB CBC - COMP BLD CT W/AUTO DIFF [HEME] DAILYLAB CRP - C-REACTIVE PROTEIN [CHEM] DAILYLAB MAGNESIUM [CHEM] DAILYLAB PHOSPHORUS [CHEM] DAILYLAB 08/02/23 05:00 CBC - COMP BLD CT W/AUTO DIFF [HEME] DAILYLAB CRP - C-REACTIVE PROTEIN [CHEM] DAILYLAB 08/02/23 07:00 Echo Transthoracic Complete [ECHO] Routine 08/03/23 05:00 CBC - COMP BLD CT W/AUTO DIFF [HEME] DAILYLAB CRP - C-REACTIVE PROTEIN [CHEM] DAILYLAB Subjective - Subjective Patient Reports: Resting Comfortably Nursing Reports: Other (Very poor memory, insists he did not have a stroke. Impulsive and wants to walk alone) Objective Vital Signs: Vital Signs - 24 hr 07/30/23 07/30/23 07/30/23 09:00 10:00 11:00 Temperature 37.4 C Heart Rate [ 98 92 99 Monitoring electrodes] Heart Rate [ Sitting] Heart Rate [ Standing] Heart Rate [ Supine] Respiratory 24 21 18 Rate Blood Pressure Blood Pressure [Left Brachial artery] Blood Pressure 140/81 H 128/74 140/88 H [Right Brachial artery] Blood Pressure [Sitting] Blood Pressure [Standing] Blood Pressure [Supine] O2 Saturation 94 94 94 07/30/23 07/30/23 07/30/23 12:00 13:00 13:50 Temperature Heart Rate [ 101 H 121 H Monitoring electrodes] Heart Rate [ 119 H Sitting] Heart Rate [ 128 H Standing] Heart Rate [ 100 Supine] Respiratory 18 28 H Rate Blood Pressure Blood Pressure [Left Brachial artery] Blood Pressure 150/97 H 155/97 H [Right Brachial artery] Blood Pressure 148/82 H [Sitting] Blood Pressure 155/75 H [Standing] Blood Pressure 150/97 H [Supine] O2 Saturation 94 94 07/30/23 07/30/23 07/30/23 14:00 15:00 16:00 Temperature 37.1 C 37.1 C 37.3 C Heart Rate [ 109 H 104 H 92 Monitoring electrodes] Heart Rate [ Sitting] Heart Rate [ Standing] Heart Rate [ Supine] Respiratory 20 26 H 23 Rate Blood Pressure Blood Pressure [Left Brachial artery] Blood Pressure 155/75 H 175/97 H [Right Brachial artery] Blood Pressure [Sitting] Blood Pressure [Standing] Blood Pressure [Supine] O2 Saturation 95 93 92 07/30/23 07/30/23 07/30/23 16:25 17:00 18:00 Temperature 37.3 C Heart Rate [ 89 87 Monitoring electrodes] Heart Rate [ Sitting] Heart Rate [ Standing] Heart Rate [ Supine] Respiratory 21 25 H Rate Blood Pressure 162/97 H Blood Pressure [Left Brachial artery] Blood Pressure 132/74 H [Right Brachial artery] Blood Pressure [Sitting] Blood Pressure [Standing] Blood Pressure [Supine] O2 Saturation 94 93 07/30/23 07/30/23 07/30/23 19:00 20:00 21:00 Temperature 37.6 C 37.6 C 37.4 C Heart Rate [ 79 85 78 Monitoring electrodes] Heart Rate [ Sitting] Heart Rate [ Standing] Heart Rate [ Supine] Respiratory 18 23 20 Rate Blood Pressure Blood Pressure [Left Brachial artery] Blood Pressure 152/92 H 147/76 H 156/79 H [Right Brachial artery] Blood Pressure [Sitting] Blood Pressure [Standing] Blood Pressure [Supine] O2 Saturation 94 94 94 07/30/23 07/30/23 07/30/23 22:00 23:20 23:34 Temperature 37.6 C 37.7 C Heart Rate [ 92 97 97 Monitoring electrodes] Heart Rate [ Sitting] Heart Rate [ Standing] Heart Rate [ Supine] Respiratory 20 23 22 Rate Blood Pressure Blood Pressure 155/92 H [Left Brachial artery] Blood Pressure 170/88 H [Right Brachial artery] Blood Pressure [Sitting] Blood Pressure [Standing] Blood Pressure [Supine] O2 Saturation 95 94 93 07/31/23 07/31/23 07/31/23 00:00 01:00 01:30 Temperature 37.4 C 37.7 C 37.6 C Heart Rate [ 92 111 H 108 H Monitoring electrodes] Heart Rate [ Sitting] Heart Rate [ Standing] Heart Rate [ Supine] Respiratory 21 19 23 Rate Blood Pressure Blood Pressure 147/93 H 141/86 H [Left Brachial artery] Blood Pressure [Right Brachial artery] Blood Pressure [Sitting] Blood Pressure [Standing] Blood Pressure [Supine] O2 Saturation 93 93 07/31/23 07/31/23 07/31/23 02:00 03:00 04:00 Temperature 37.5 C 37 C 37.0 C Heart Rate [ 96 92 101 H Monitoring electrodes] Heart Rate [ Sitting] Heart Rate [ Standing] Heart Rate [ Supine] Respiratory 17 19 17 Rate Blood Pressure Blood Pressure 146/83 H 127/73 123/72 [Left Brachial artery] Blood Pressure [Right Brachial artery] Blood Pressure [Sitting] Blood Pressure [Standing] Blood Pressure [Supine] O2 Saturation 93 92 94 07/31/23 07/31/23 07/31/23 05:00 06:00 07:00 Temperature 37.2 C 37.1 C 36.9 C Heart Rate [ 90 95 96 Monitoring electrodes] Heart Rate [ Sitting] Heart Rate [ Standing] Heart Rate [ Supine] Respiratory 21 21 21 Rate Blood Pressure Blood Pressure 160/88 H 150/72 H 125/79 [Left Brachial artery] Blood Pressure [Right Brachial artery] Blood Pressure [Sitting] Blood Pressure [Standing] Blood Pressure [Supine] O2 Saturation 94 94 94 07/31/23 08:16 Temperature Heart Rate [ Monitoring electrodes] Heart Rate [ Sitting] Heart Rate [ Standing] Heart Rate [ Supine] Respiratory Rate Blood Pressure 147/100 H Blood Pressure [Left Brachial artery] Blood Pressure [Right Brachial artery] Blood Pressure [Sitting] Blood Pressure [Standing] Blood Pressure [Supine] O2 Saturation Oxygen O2 Source Room air I&O (Last 24 Hrs): Intake and Output Totals x24h 07/29/23 07/30/23 07/31/23 23:59 23:59 23:59 Intake Total 2942 4061 1109.167 Output Total 1467 8505 2825 Balance 1475 1516 -1715.833 General: Alert, No acute distress HEENT: Mucous membr. moist/pink Neck: Supple Neuro: Alert, Disoriented, Other (L sided neglect) Cardiovascular: Regular rate Respiratory: No respiratory distress Abdomen: Soft Extremities: No clubbing, No edema, No tenderness/swelling - Results Results: Laboratory Results WBC 9.2 x10^3/uL (4.8-10.8) 07/31/23 04:30 RBC 4.46 10^6/uL (4.70-6.10) L 07/31/23 04:30 Hgb 14.2 g/dL (14.0-18.0) 07/31/23 04:30 Hct 42.6 % (42.0-52.0) 07/31/23 04:30 MCV 95.5 fL (80.0-94.0) H 07/31/23 04:30 MCH 31.8 pg (27.0-31.0) H 07/31/23 04:30 MCHC 33.3 g/dL (32.0-36.0) 07/31/23 04:30 RDW 12.8 % (12.0-15.0) 07/31/23 04:30 Plt Count 139 10^3/uL (130-450) 07/31/23 04:30 MPV 11.9 fL (7.4-11.4) H 07/31/23 04:30 Neut # (Auto) 6.6 10^3/uL (1.5-6.6) 07/31/23 04:30 Lymph # (Auto) 1.2 10^3/uL (1.5-3.5) L 07/31/23 04:30 [place] # (Auto) 1.0 10^3/uL (0.0-1.0) 07/31/23 04:30 Eos # (Auto) 0.2 10^3/uL (0.0-0.7) 07/31/23 04:30 Baso # (Auto) 0.1 10^3/uL (0.0-0.1) 07/31/23 04:30 Absolute Nucleated RBC 0.00 x10^3/uL 07/31/23 04:30 Nucleated RBC % 0.0 /100WBC 07/31/23 04:30 PT 14.3 secs (9.9-12.6) H 07/29/23 04:24 INR 1.3 (0.8-1.2) H 07/29/23 04:24 APTT 28.5 secs (24.9-33.3) 07/29/23 04:24 VBG pH 7.357 (7.31-7.41) 07/30/23 04:30 Ionized Calcium 1.10 mmol/L (1.15-1.33) L 07/30/23 04:30 Sodium 138 mmol/L (135-145) 07/31/23 04:30 Potassium 3.9 mmol/L (3.5-4.5) 07/31/23 04:30 Chloride 104 mmol/L (101-111) 07/31/23 04:30 Carbon Dioxide 27 mmol/L (21-32) 07/31/23 04:30 Anion Gap 7.0 (6-13) 07/31/23 04:30 BUN 14 mg/dL (6-20) 07/31/23 04:30 Creatinine 0.9 mg/dL (0.6-1.3) 07/31/23 04:30 Estimated GFR (MDRD) 81 (>89) L 07/31/23 04:30 Glucose 105 mg/dL (74-104) H 07/31/23 04:30 Estimat Average Glucose 134 mg/dL (70-100) H 07/29/23 09:30 Hemoglobin A1c % 6.3 % (4.27-6.07) H 07/29/23 09:30 Calcium 8.7 mg/dL (8.5-10.3) 07/31/23 04:30 Phosphorus 2.6 mg/dL (2.5-5.0) 07/30/23 04:30 Magnesium 1.7 mg/dL (1.7-2.3) 07/30/23 04:30 Total Bilirubin 0.7 mg/dL (0.2-1.0) 07/29/23 04:24 AST 13 IU/L (10-42) 07/29/23 04:24 ALT 8 IU/L (10-60) L 07/29/23 04:24 Alkaline Phosphatase 42 IU/L (42-121) 07/29/23 04:24 Lactate Dehydrogenase 143 IU/L (140-271) 07/29/23 04:24 Troponin I High Sens 10.7 ng/L (2.3-19.7) 07/28/23 19:50 C-Reactive Protein 2.7 mg/dL (<0.5) H 07/31/23 04:30 B-Natriuretic Peptide 111 pg/mL (5-100) H 07/30/23 04:30 Total Protein 6.4 g/dL (6.4-8.9) 07/29/23 04:24 Albumin 4.0 g/dL (3.2-5.5) 07/29/23 04:24 Globulin 2.4 g/dL (2.1-4.2) 07/29/23 04:24 Albumin/Globulin Ratio 1.7 (1.0-2.2) 07/29/23 04:24 Triglycerides 97 mg/dL (48-352) 07/30/23 04:30 Cholesterol 161 mg/dL (-200) 07/30/23 04:30 LDL Cholesterol, Calc 110 mg/dL (-129) 07/30/23 04:30 VLDL Cholesterol 19 mg/dL 07/30/23 04:30 HDL Cholesterol 32 mg/dL (60-) L 07/30/23 04:30 LDL/HDL Ratio 3.4 (<3.6) 07/30/23 04:30 Cholesterol/HDL Ratio 5.0 (<5.0) 07/30/23 04:30 Lipase 13 U/L (11-82) 07/28/23 15:17 Vitamin B12 187 pg/mL (180-914) 07/29/23 04:24 Urine Color YELLOW 07/28/23 16:35 Urine Clarity CLEAR (CLEAR) 07/28/23 16:35 Urine pH 7.0 PH (5.0-7.5) 07/28/23 16:35 Ur Specific [place] 1.020 (1.002-1.030) 07/28/23 16:35 Urine Protein TRACE mg/dL (NEGATIVE) 07/28/23 16:35 Urine Glucose (UA) 250 mg/dL (NEGATIVE) H 07/28/23 16:35 Urine Ketones 15 mg/dL (NEGATIVE) H 07/28/23 16:35 Urine Occult Blood NEGATIVE (NEGATIVE) 07/28/23 16:35 Urine Nitrite NEGATIVE (NEGATIVE) 07/28/23 16:35 Urine Bilirubin NEGATIVE (NEGATIVE) 07/28/23 16:35 Urine Urobilinogen 0.2 (NORMAL) E.U./dL (NORMAL) 07/28/23 16:35 Ur Leukocyte Esterase NEGATIVE (NEGATIVE) 07/28/23 16:35 Urine RBC 0-5 /HPF (0-5) 07/28/23 16:35 Urine WBC 0-3 /HPF (0-3) 07/28/23 16:35 Ur Squamous Epith Cells NONE SEEN (<= Few) 07/28/23 16:35 Urine Bacteria Rare /HPF (None Seen) 07/28/23 16:35 Urine Culture Comments NOT INDICATED 07/28/23 16:35 Nasal Influenza B PCR NOT DETECTED 07/28/23 17:20 Nasal Influenza A PCR NOT DETECTED 07/28/23 17:20 Nasal RSV (PCR) NOT DETECTED 07/28/23 17:20 Nasal Screen MRSA (PCR) NEGATIVE (NEGATIVE) 07/29/23 00:30 Nasal SARS-CoV-2 (PCR) NOT DETECTED 07/28/23 17:20 Last Dose Date 07/30/23 07/30/23 14:49 Last Dose Time 0340 07/30/23 14:49 Vancomycin Trough 10.8 ug/mL 07/30/23 14:49
[2023-07-31] MEDS: SODIUM CHLORIDE FLUSH 0.9% 10 ML SYRINGE IVP SCH ×4 (09:30→23:34)
[2023-07-31] MEDS: LORazepam 2 MG/ML VIAL IVP PRN ×2 (16:37→20:38)
[2023-07-31] MEDS ORDERED: metFORMIN 500 MG TABLET PO SCH (17:00)
[2023-07-31] MEDS ORDERED: HALOPERIDOL 5 MG/ML VIAL IVP ONE (17:28)
[2023-07-31] MEDS: ATORVASTATIN 40 MG TABLET PO SCH (20:36)
[2023-07-31] MEDS: QUEtiapine 25 MG TABLET PO SCH (22:46)
[2023-07-31] MEDS: HALOPERIDOL 5 MG/ML VIAL IVP PRN (23:34)
[2023-08-01] MEDS: VANCOMYCIN INJ 1 GM in SODIUM CHLORIDE 0.9% 250 ML IV SCH ×2 (02:43→15:28)
[2023-08-01] MEDS: CEFEPIME 2 GM in SODIUM CHLORIDE 0.9% MINIBAG 100 ML IV SCH ×3 (04:59→19:46)
[2023-08-01] MEDS: metroNIDAZOLE 500 MG/100 ML 500 MG/100 ML BAG IV SCH ×3 (04:59→20:20)
[2023-08-01] MEDS: METOPROLOL TARTRATE 25 MG TABLET PO SCH ×2 (09:51→16:49)
[2023-08-01] MEDS: INSULIN LISPRO 300 UNIT/3 ML PEN SUBQ SCH (09:51)
[2023-08-01] MEDS: FAMOTIDINE 20 MG TABLET PO SCH ×2 (09:51→20:20)
[2023-08-01] MEDS: APIXABAN 5 MG TABLET PO SCH ×2 (09:52→20:21)
[2023-08-01] MEDS: ASPIRIN EC 81 MG TABLET PO SCH (09:52)
[2023-08-01 10:58] LABS: BASOPHILS # (AUTO) 0.1 10^3/uL (0.0-0.1); BASOPHILS % (AUTO) 1.1 %; EOSINOPHILS # (AUTO) 0.3 10^3/uL (0.0-0.7); EOSINOPHILS % (AUTO) 4.6 %; HCT - HEMATOCRIT 42.8 % (42.0-52.0); HGB - HEMOGLOBIN 14.1 g/dL (14.0-18.0); LYMPHOCYTES # (AUTO) 0.7 10^3/uL (1.5-3.5); LYMPHOCYTES % (AUTO) 11.1 %; MEAN CORPUSCULAR HEMOGLOBIN 31.4 pg (27.0-31.0); MEAN CORPUSCULAR HGB CONC 32.9 g/dL (32.0-36.0); MEAN CORPUSCULAR VOLUME 95.3 fL (80.0-94.0); MEAN PLATELET VOLUME 11.6 fL (7.4-11.4); MONOCYTES # (AUTO) 0.7 10^3/uL (0.0-1.0); MONOCYTES % (AUTO) 11.1 %; NEUTROPHILS # (AUTO) 4.7 10^3/uL (1.5-6.6); NEUTROPHILS % (AUTO) 71.9 %; PLT - PLATELET COUNT 163 10^3/uL (130-450); RED BLOOD COUNT 4.49 10^6/uL (4.70-6.10); RED CELL DISTRIBUTION WIDTH 12.6 % (12.0-15.0); WHITE BLOOD COUNT 6.5 x10^3/uL (4.8-10.8)
[2023-08-01 11:39] LABS: CALCIUM 8.8 mg/dL (8.5-10.3); MAGNESIUM 1.8 mg/dL (1.7-2.3); PHOSPHORUS 3.2 mg/dL (2.5-5.0); POTASSIUM 3.3 mmol/L (3.5-4.5)
[2023-08-01] MEDS: SODIUM CHLORIDE FLUSH 0.9% 10 ML SYRINGE IVP SCH ×2 (12:32→16:49)
--- NOTE | 2023-08-01 15:16 | PROVIDER PROGRESS NOTE ---
Assessment/Plan - Problem List (1) Acute CVA (cerebrovascular accident) Assessment/Plan: The patient presented obtunded, awoke after a day, was able to swallow, and speak. He has L arm weakness and severe L-sided neglect and worsened memory. Carotid Doppler showed moder Bilat carotid disease Fasting lipids showed an LDL of 110, despite supposedly taking a statin (daughter said she thinks he was not compliant) We were holding his oral anticoagulant for 48 hrs to prevent hemorrhagic transformation of the stroke, but have resumed his DOAC now. Since 07/31 he is displaying impulsivity and has very poor short term memory; he does not agree that he had a stroke, and does not realize that he has L sided neglect, tries to get up and walk on his own, and staggered twice when walking with a walker with PT Plan: Await Echo result (we have no pet care technician here since he was admitted. Echo service available tomorrow) Continued po DOAC and aspirin daily Cont high dose statin Will stop neurochecks PT and OT evals ordered. PT saw him yesterday and confirmed L sided weakness and L side neglect and he does need PT and OT rehab at a SNF. I told the I updated the at bedside today (2) Poor memory Before this hospitalization, he was driving himself to [facility] for hyperbaric tx and driving to [facility] and wanted to go alone to his ID appointments. At admission the patient was minimally communicative, now speaks and vehemently denies having a stroke but does not know why he is here. He has sundowned on 07/30/23 and yesterday 07/31/23, he needed sedatives: Ativan was ordered prn, he got Haldol iv x1 and Telemdicine night ordered Seroquel qpm. On 07/31 the daughter told me that he was also sundowning when he was hospitalized for the femoropopliteal surgery 3 mos ago and needed arm restraints and mittens. OT did a cognitive eval on pt today and he scored 10/30. Plan: I will order 1:1 monitoring especially, it can start when he sundowns in the evening and into the night. Cont scheduled Seroquel Continue with Ativan as needed He will no longer be able to drive. A DMV form was completed by me today and given to SW to submit The daughter who lives next door to them is the 2nd in line DPOA, after the , and has said that likely her father needs to go to a LTC facility, and they have a financial plan for that. I updated SW. He will need a Telepsych eval to determine best treatment for his new confusion causing behavioral disturbances (we do not have a Teleneurology agreement with a larger facility to get input, unless it is a STAT telestroke situation), since he needs to be cleared of 1:1 monitoring, to be accepted at a SNF. (3) Diabetic foot ulcer At adm I spoke to his ID specialist, Dr Duran re his Hx of the foot ulcer and the osteo, and how both were being treated using Linezolid and Doxycycline and topical Gentamicin cream. The pt did "not allow" his to see the wound". Family said he would also "not allow" them to be in charge of any of his meds, and said he is very stubborn. Dr Duran thinks he was not reliable with taking his antibx. When I discussed need to be compliant and recommended that family could supervise his dosing of meds, pt said he would think about it. A wound swab was sent for culture, and final wound cx results today show Pseudomonas aruginosa, resist to Keflex, sens to all other antibx like Cefepime Appreciate General Surgery consult, no debridement needed WBC has improved to 6, but CRP anjana to 3. Dr Duran told me his last CRP was 0.8 Plan: Remain on iv cefepime Will cont empiric Vanco and Flagyl, until cx is finalized, unless any other bacteria grow Dressing changes every 2 days We will be updating Dr Duran, ID (her cell is [phone]) (4) Osteomyelitis At adm, I spoke to his ID specialist, Dr Duran re his Hx of the foot ulcer and the osteo, and she described how both were being treated: with oral Linezolid and on Doxycycline and topical antibx cream. However she suspected he was not compliant with taking the antibx. On 07/[address] Duran that the XRay did show osteo, but no soft tissue involvement except the ulcer WBC today is 6 but CRP anjana 0.9>> 2.7>> [address] Duran told me his last CRP was 0.8 Plan: Remain on empiric iv Vanco, cefepime and Flagyl. Await final blood cx results Dr Duran wants him to get a PICC line and finish treatment of the osteo using iv antibx. Since he will need a SNF for stroke rehab, he could get iv antibx at the SNF as well. No PICC line inserted yet, as we are awaiting a final bld cx result, and also he has been here thru the New Years 3 day weekend/holiday, and no PICC lines are put in by Anesthesia on weekends. (5) Pseudomonas aruginosa infection After being admitted from the ER, he had a fever that lasted for several hours. WBC was 11>> 12>> 11. The sources appear to be an aspiration pneumonia and possibly his osteomyelitis and diabetic foot ulcer. WBC today is 9 but CRP anjana to 3 (all labs were reviewed) Dr Duran told me she had been using po meds to treat and to in fact suppress Psudomonas Plan: Remain on empiric antibiotics as advised by phone discussion with ID yesterday Cont probiotic We will be updating FATEMEH Garg (her cell is [phone]) (6) PVD He underwent a left lower extremity fem-pop bypass in May 2023 at [place] which failed and had to be redone. They used his right arm blood vessel for this. He had a complication of him having a stroke. He needed hyperbaric treatment at [facility] which was recently completed. Plan: Cont his cardiovascular meds (7) Afib with RVR At adm HR was 100-120. I started him on scheduled IV Lopressor 2.5 every 6 hours for rate control Plan: We resumed his DOAC after holding it for 48 hrs I resumed his po meds for rate control Will stop telemetry (8) DM Type 2 His A1c came back at 6.3, good glu control on home regimen Plan: Will stop iv fluids of D5 NS Cont carb controlled diet Cont the restarted Metformin 500 mg BID Cont POC glucose checks ac&hs and hold parameters were placed for not giveing the Metformin Cont hypoglycemia protocol (9) Acute urinary retention I had ordered a Muro insertion when he was obtunded D/C'd Muro on 07/31 and he has not had reoccurrence of retention - Current Meds Current Meds: Current Medications Generic Name Dose Route Start Last Admin Trade Name Freq PRN Reason Stop Dose Admin Apixaban 5 mg 07/31/23 09:00 08/01/23 09:52 Apixaban 5 Mg Tablet PO 5 mg BID SHON Administration Aspirin 81 mg 07/31/23 09:00 08/01/23 09:52 Aspirin Ec 81 Mg Tablet PO 81 mg DAILY SHON Administration Atorvastatin Calcium 80 mg 07/30/23 21:00 07/31/23 20:36 Atorvastatin 40 Mg Tablet PO 80 mg QPM SHON Administration Famotidine 20 mg 07/30/23 21:00 08/01/23 09:51 Famotidine 20 Mg Tablet PO 20 mg BID SHON Administration Haloperidol 1 mg 07/31/23 17:29 07/31/23 23:34 Haloperidol 5 Mg/Ml Vial IVP 1 mg Q6H PRN Administration Agitation Vancomycin HCl 1 gm/ Sodium 250 mls @ 167 mls/hr 07/29/23 15:00 08/01/23 04:59 Chloride IV Infused Q12H SHON Infusion Cefepime HCl 2 gm/ Sodium 100 mls @ 200 mls/hr 07/29/23 12:00 08/01/23 13:38 Chloride IV 08/02/23 23:00 Infused Q8H SHON Infusion Metronidazole 500 mg in 100 mls @ 100 mls/hr 07/29/23 12:00 08/01/23 13:11 Flagyl 500 Mg/100 Ml IV 08/02/23 23:00 100 mls/hr Q8H SHON Administration Lorazepam 0.5 mg 07/31/23 11:04 07/31/23 20:38 Lorazepam 2 Mg/Ml Vial IVP 0.5 mg Q30M PRN Administration CIWA >8 Protocol Metoprolol Tartrate 25 mg 07/30/23 17:00 08/01/23 09:51 Metoprolol Tartrate 25 Mg Tablet PO 25 mg BIDWM SHON Administration Quetiapine Fumarate 50 mg 07/31/23 23:00 07/31/23 22:46 Quetiapine 25 Mg Tablet PO 50 mg QPM SHON Administration Sodium Chloride 10 ml 07/29/23 01:00 08/01/23 12:32 Sodium Chloride Flush 0.9% 10 Ml Syringe IVP 10 ml 0100,0900,1700 SHON Administration Sodium Chloride 10 ml 07/28/23 23:35 07/29/23 18:17 Sodium Chloride Flush 0.9% 10 Ml Syringe IVP 30 ml PRN PRN Administration NEEDED PER PROVIDER ORDERS - Lab Result Fish Bone Diagrams: 08/01/23 10:53 08/01/23 10:53 - Additional Planning My Orders: My Active Orders 07/31/23 Dinner Carb-controlled Diet [DIET] 07/31/23 17:29 Haloperidol Inj [Haldol Inj] 1 mg IVP Q6H PRN 08/01/23 1:1 Safety Observation [OTHERS] Routine 08/01/23 11:10 metFORMIN [Glucophage] 500 mg PO BIDWM 08/02/23 05:00 CBC - COMP BLD CT W/AUTO DIFF [HEME] DAILYLAB CRP - C-REACTIVE PROTEIN [CHEM] DAILYLAB 08/02/23 07:00 Echo Complete w/Bubble Study [ECHO] Routine 08/03/23 05:00 CBC - COMP BLD CT W/AUTO DIFF [HEME] DAILYLAB CRP - C-REACTIVE PROTEIN [CHEM] DAILYLAB Subjective - Subjective Patient Reports: No Complaints Nursing Reports: Other (He was sundowning, was awake and demanding until 0400 this last night.) Objective Vital Signs: Vital Signs - 24 hr 07/31/23 07/31/23 07/31/23 17:00 17:22 22:38 Temperature 37.3 C Heart Rate [ 95 91 Monitoring electrodes] Respiratory 18 18 Rate Blood Pressure 158/89 H Blood Pressure 158/89 H 152/94 H [Left Brachial artery] O2 Saturation 95 94 08/01/23 08/01/23 08/01/23 09:00 09:51 13:00 Temperature 36.6 C 36.7 C Heart Rate [ 92 96 Monitoring electrodes] Respiratory 20 20 Rate Blood Pressure 144/86 H Blood Pressure 144/86 H 131/81 H [Left Brachial artery] O2 Saturation 96 96 Oxygen O2 Source Room air I&O (Last 24 Hrs): Intake and Output Totals x24h 07/30/23 07/31/23 08/01/23 23:59 23:59 23:59 Intake Total 4061 4164.167 1330 Output Total 2545 3805 Balance 1516 508.072 2601 General: Alert, No acute distress HEENT: Mucous membr. moist/pink, Other (L gaze neglect) Neck: Supple, No JVD Neuro: Alert, Other (L arm and hand has mild weakness, he has L sided neglect and probably L visual field defect) Cardiovascular: Regular rate, No murmurs Respiratory: No respiratory distress Abdomen: Soft, No tenderness Extremities: No clubbing, No edema, Other (Both bunions are bandaged, there is an ulcer under the bandaged L one) - Results Results: Laboratory Results WBC 6.5 x10^3/uL (4.8-10.8) 08/01/23 10:53 RBC 4.49 10^6/uL (4.70-6.10) L 08/01/23 10:53 Hgb 14.1 g/dL (14.0-18.0) 08/01/23 10:53 Hct 42.8 % (42.0-52.0) 08/01/23 10:53 MCV 95.3 fL (80.0-94.0) H 08/01/23 10:53 MCH 31.4 pg (27.0-31.0) H 08/01/23 10:53 MCHC 32.9 g/dL (32.0-36.0) 08/01/23 10:53 RDW 12.6 % (12.0-15.0) 08/01/23 10:53 Plt Count 163 10^3/uL (130-450) 08/01/23 10:53 MPV 11.6 fL (7.4-11.4) H 08/01/23 10:53 Neut # (Auto) 4.7 10^3/uL (1.5-6.6) 08/01/23 10:53 Lymph # (Auto) 0.7 10^3/uL (1.5-3.5) L 08/01/23 10:53 [place] # (Auto) 0.7 10^3/uL (0.0-1.0) 08/01/23 10:53 Eos # (Auto) 0.3 10^3/uL (0.0-0.7) 08/01/23 10:53 Baso # (Auto) 0.1 10^3/uL (0.0-0.1) 08/01/23 10:53 Absolute Nucleated RBC 0.00 x10^3/uL 08/01/23 10:53 Nucleated RBC % 0.0 /100WBC 08/01/23 10:53 PT 14.3 secs (9.9-12.6) H 07/29/23 04:24 INR 1.3 (0.8-1.2) H 07/29/23 04:24 APTT 28.5 secs (24.9-33.3) 07/29/23 04:24 VBG pH 7.357 (7.31-7.41) 07/30/23 04:30 Ionized Calcium 1.10 mmol/L (1.15-1.33) L 07/30/23 04:30 Sodium 137 mmol/L (135-145) 08/01/23 10:53 Potassium 3.3 mmol/L (3.5-4.5) L 08/01/23 10:53 Chloride 104 mmol/L (101-111) 08/01/23 10:53 Carbon Dioxide 28 mmol/L (21-32) 08/01/23 10:53 Anion Gap 5.0 (6-13) L 08/01/23 10:53 BUN 15 mg/dL (6-20) 08/01/23 10:53 Creatinine 1.0 mg/dL (0.6-1.3) 08/01/23 10:53 Estimated GFR (MDRD) 72 (>89) L 08/01/23 10:53 Glucose 151 mg/dL (74-104) H 08/01/23 10:53 Estimat Average Glucose 134 mg/dL (70-100) H 07/29/23 09:30 Hemoglobin A1c % 6.3 % (4.27-6.07) H 07/29/23 09:30 Calcium 8.8 mg/dL (8.5-10.3) 08/01/23 10:53 Phosphorus 3.2 mg/dL (2.5-5.0) 08/01/23 10:53 Magnesium 1.8 mg/dL (1.7-2.3) 08/01/23 10:53 Total Bilirubin 0.7 mg/dL (0.2-1.0) 07/29/23 04:24 AST 13 IU/L (10-42) 07/29/23 04:24 ALT 8 IU/L (10-60) L 07/29/23 04:24 Alkaline Phosphatase 42 IU/L (42-121) 07/29/23 04:24 Lactate Dehydrogenase 143 IU/L (140-271) 07/29/23 04:24 Troponin I High Sens 10.7 ng/L (2.3-19.7) 07/28/23 19:50 C-Reactive Protein 3.0 mg/dL (<0.5) H 08/01/23 10:53 B-Natriuretic Peptide 111 pg/mL (5-100) H 07/30/23 04:30 Total Protein 6.4 g/dL (6.4-8.9) 07/29/23 04:24 Albumin 4.0 g/dL (3.2-5.5) 07/29/23 04:24 Globulin 2.4 g/dL (2.1-4.2) 07/29/23 04:24 Albumin/Globulin Ratio 1.7 (1.0-2.2) 07/29/23 04:24 Triglycerides 97 mg/dL (48-352) 07/30/23 04:30 Cholesterol 161 mg/dL (-200) 07/30/23 04:30 LDL Cholesterol, Calc 110 mg/dL (-129) 07/30/23 04:30 VLDL Cholesterol 19 mg/dL 07/30/23 04:30 HDL Cholesterol 32 mg/dL (60-) L 07/30/23 04:30 LDL/HDL Ratio 3.4 (<3.6) 07/30/23 04:30 Cholesterol/HDL Ratio 5.0 (<5.0) 07/30/23 04:30 Lipase 13 U/L (11-82) 07/28/23 15:17 Vitamin B12 187 pg/mL (180-914) 07/29/23 04:24 Urine Color YELLOW 07/28/23 16:35 Urine Clarity CLEAR (CLEAR) 07/28/23 16:35 Urine pH 7.0 PH (5.0-7.5) 07/28/23 16:35 Ur Specific [place] 1.020 (1.002-1.030) 07/28/23 16:35 Urine Protein TRACE mg/dL (NEGATIVE) 07/28/23 16:35 Urine Glucose (UA) 250 mg/dL (NEGATIVE) H 07/28/23 16:35 Urine Ketones 15 mg/dL (NEGATIVE) H 07/28/23 16:35 Urine Occult Blood NEGATIVE (NEGATIVE) 07/28/23 16:35 Urine Nitrite NEGATIVE (NEGATIVE) 07/28/23 16:35 Urine Bilirubin NEGATIVE (NEGATIVE) 07/28/23 16:35 Urine Urobilinogen 0.2 (NORMAL) E.U./dL (NORMAL) 07/28/23 16:35 Ur Leukocyte Esterase NEGATIVE (NEGATIVE) 07/28/23 16:35 Urine RBC 0-5 /HPF (0-5) 07/28/23 16:35 Urine WBC 0-3 /HPF (0-3) 07/28/23 16:35 Ur Squamous Epith Cells NONE SEEN (<= Few) 07/28/23 16:35 Urine Bacteria Rare /HPF (None Seen) 07/28/23 16:35 Urine Culture Comments NOT INDICATED 07/28/23 16:35 Nasal Influenza B PCR NOT DETECTED 07/28/23 17:20 Nasal Influenza A PCR NOT DETECTED 07/28/23 17:20 Nasal RSV (PCR) NOT DETECTED 07/28/23 17:20 Nasal Screen MRSA (PCR) NEGATIVE (NEGATIVE) 07/29/23 00:30 Nasal SARS-CoV-2 (PCR) NOT DETECTED 07/28/23 17:20 Last Dose Date 07/30/23 07/30/23 14:49 Last Dose Time 0340 07/30/23 14:49 Vancomycin Trough 10.8 ug/mL 07/30/23 14:49
--- NOTE | 2023-08-01 16:41 | PHARMACY PROGRESS NOTE ---
- Therapy Status Vancomycin regimen day #: 4 Therapy status: Trough subtherapeutic Basis for treatment: Empirical Treatment indication: OSTEOMYELITIS, DIABETIC FOOT ULCER, Trough goal: AUC: 400-600 Concurrent antibiotics: CEFEPIME - BHAVESH Risk Risk level for Acute Kidney Injury: High Acute Kidney Injury risk factors: Wt >100kg or BMI >40 (VANCO TROUGH ON 07/30 @1449 OF 1G Q12H STARTED ON 07/29 @ 0300 PRODUCED RESULT OF 10.8, YIELDING A CALCULATED AUC/TOMMY OF 363, BELOW TARGETED RANGE OF 400 TO 600. CHANGING VANCO DOSE TO 1.5G Q 12H FOR A TARGET AUC/TOMMY OF 561.), Chronic baseline hypertension, Diabetes, Admission to ICU - Monitoring and Recommendation Clinical response to treatment: I&O Previous 24 hours 07/30/23 07/31/23 08/01/23 23:59 23:59 23:59 Intake Total 4061 4164.167 1430 Output Total 2545 3805 Balance 1516 873.777 5077 Lab Results 08/01/23 07/31/23 07/30/23 10:53 04:30 04:30 BUN 15 14 17 Creatinine 1.0 0.9 1.0 Estimated GFR (MDRD) 72 L 81 L 72 L 07/29/23 07/28/23 04:24 15:17 BUN 19 18 Creatinine 1.1 1.0 Estimated GFR (MDRD) 64 L 72 L Vancomycin Monitoring 07/30/23 14:49 Vancomycin Trough 10.8 Cultures 07/29/23 09:00 Foot - Left Wound Culture - Final Pseudomonas Aeruginosa 07/29/23 01:43 Blood - Right Femoral Blood Culture - Preliminary NO GROWTH AFTER 2 DAYS 07/28/23 19:50 Blood Blood Culture - Preliminary NO GROWTH AFTER 2 DAYS 07/28/23 19:36 Blood Blood Culture - Preliminary NO GROWTH AFTER 2 DAYS Monitoring plan: Daily serum creatinine Areas for additional monitoring: Therapy de-escalation based on culture results, Acute Kidney Injury Pharmacy recommendation: Continue current regime
[2023-08-01] MEDS: metFORMIN 500 MG TABLET PO SCH (16:49)
[2023-08-01] MEDS ORDERED: VANCOMYCIN INJ 1 GM, VANCOMYCIN INJ 500 MG in SODIUM CHLORIDE 0.9% 500 ML IV SCH ×2 (17:00→23:00)
[2023-08-01] MEDS: ATORVASTATIN 40 MG TABLET PO SCH (20:21)
[2023-08-01] MEDS: QUEtiapine 25 MG TABLET PO SCH (20:21)
[2023-08-01] MEDS: HALOPERIDOL 5 MG/ML VIAL IVP PRN (22:10)
[2023-08-02] MEDS: SODIUM CHLORIDE FLUSH 0.9% 10 ML SYRINGE IVP SCH ×3 (01:39→17:31)
[2023-08-02] MEDS: CEFEPIME 2 GM in SODIUM CHLORIDE 0.9% MINIBAG 100 ML IV SCH (04:08)
[2023-08-02] MEDS: metroNIDAZOLE 500 MG/100 ML 500 MG/100 ML BAG IV SCH (04:08)
[2023-08-02 06:00] LABS: BASOPHILS # (AUTO) 0.1 10^3/uL (0.0-0.1); BASOPHILS % (AUTO) 0.6 %; EOSINOPHILS # (AUTO) 0.4 10^3/uL (0.0-0.7); EOSINOPHILS % (AUTO) 4.3 %; HCT - HEMATOCRIT 42.8 % (42.0-52.0); HGB - HEMOGLOBIN 14.2 g/dL (14.0-18.0); LYMPHOCYTES # (AUTO) 1.5 10^3/uL (1.5-3.5); LYMPHOCYTES % (AUTO) 18.8 %; MEAN CORPUSCULAR HEMOGLOBIN 31.2 pg (27.0-31.0); MEAN CORPUSCULAR HGB CONC 33.2 g/dL (32.0-36.0); MEAN CORPUSCULAR VOLUME 94.1 fL (80.0-94.0); MEAN PLATELET VOLUME 11.8 fL (7.4-11.4); MONOCYTES # (AUTO) 1.1 10^3/uL (0.0-1.0); MONOCYTES % (AUTO) 13.1 %; NEUTROPHILS # (AUTO) 5.1 10^3/uL (1.5-6.6); NEUTROPHILS % (AUTO) 62.8 %; PLT - PLATELET COUNT 171 10^3/uL (130-450); RED BLOOD COUNT 4.55 10^6/uL (4.70-6.10); RED CELL DISTRIBUTION WIDTH 12.6 % (12.0-15.0); WHITE BLOOD COUNT 8.1 x10^3/uL (4.8-10.8)
[2023-08-02] MEDS: FAMOTIDINE 20 MG TABLET PO SCH ×2 (10:27→20:42)
[2023-08-02] MEDS: metFORMIN 500 MG TABLET PO SCH ×2 (10:27→17:29)
[2023-08-02] MEDS: levoFLOXacin 750 MG TABLET PO SCH (10:28)
[2023-08-02] MEDS: METOPROLOL TARTRATE 25 MG TABLET PO SCH ×2 (10:28→17:30)
[2023-08-02] MEDS: APIXABAN 5 MG TABLET PO SCH ×2 (10:28→20:42)
[2023-08-02] MEDS: ASPIRIN EC 81 MG TABLET PO SCH (10:28)
--- NOTE | 2023-08-02 13:27 | PROVIDER PROGRESS NOTE ---
Assessment/Plan - Current Meds Current Meds: Current Medications Generic Name Dose Route Start Last Admin Trade Name Freq PRN Reason Stop Dose Admin Apixaban 5 mg 07/31/23 09:00 08/02/23 10:28 Apixaban 5 Mg Tablet PO 5 mg BID SHON Administration Aspirin 81 mg 07/31/23 09:00 08/02/23 10:28 Aspirin Ec 81 Mg Tablet PO 81 mg DAILY SHON Administration Atorvastatin Calcium 80 mg 07/30/23 21:00 08/01/23 20:21 Atorvastatin 40 Mg Tablet PO 80 mg QPM SHON Administration Famotidine 20 mg 07/30/23 21:00 08/02/23 10:27 Famotidine 20 Mg Tablet PO 20 mg BID SHON Administration Haloperidol 1 mg 07/31/23 17:29 08/01/23 22:10 Haloperidol 5 Mg/Ml Vial IVP 1 mg Q6H PRN Administration Agitation Levofloxacin 750 mg 08/02/23 11:00 08/02/23 10:28 Levofloxacin 750 Mg Tablet PO 750 mg DAILY SHON Administration Lorazepam 0.5 mg 07/31/23 11:04 07/31/23 20:38 Lorazepam 2 Mg/Ml Vial IVP 0.5 mg Q30M PRN Administration CIWA >8 Protocol Metformin HCl 500 mg 08/01/23 11:10 08/02/23 10:27 Metformin 500 Mg Tablet PO Not Given BIDWM SHON Metoprolol Tartrate 25 mg 07/30/23 17:00 08/02/23 10:28 Metoprolol Tartrate 25 Mg Tablet PO 25 mg BIDWM SHON Administration Quetiapine Fumarate 50 mg 07/31/23 23:00 08/01/23 20:21 Quetiapine 25 Mg Tablet PO 50 mg QPM SHON Administration Sodium Chloride 10 ml 07/29/23 01:00 08/02/23 10:29 Sodium Chloride Flush 0.9% 10 Ml Syringe IVP Not Given 0100,0900,1700 SHON Sodium Chloride 10 ml 07/28/23 23:35 07/29/23 18:17 Sodium Chloride Flush 0.9% 10 Ml Syringe IVP 30 ml PRN PRN Administration NEEDED PER PROVIDER ORDERS - Lab Result Fish Bone Diagrams: 08/02/23 05:35 08/01/23 10:53 - Additional Planning Additional Planning Notes: This patient's dressing placed today was removed and the wound examined. It is minute with excellent granulation tissue and should not be considered the primary source of infection unless everything else is ruled out first. Patient is being followed by outpatient wound clinic which appears to be treating his wound with good-excellent results. I would not change course. Futher surgical care should not be required on this patient unless there is a profound change in his wound or clinical status. Subjective - Subjective Patient Reports: Feeling Better Nursing Reports: No Complaints Objective Vital Signs: Vital Signs - 24 hr 08/01/23 08/01/23 08/02/23 16:11 23:06 00:32 Temperature 36.7 C 37.0 C 36.9 C Heart Rate [ 102 H Brachial] Heart Rate [ 94 95 Monitoring electrodes] Respiratory 18 20 20 Rate Blood Pressure Blood Pressure 153/89 H [Left Brachial artery] Blood Pressure 152/85 H 156/97 H [Right Brachial artery] O2 Saturation 96 91 L 96 08/02/23 08/02/23 08/02/23 01:30 07:35 10:28 Temperature 36.9 C 36.7 C Heart Rate [ 90 Brachial] Heart Rate [ Monitoring electrodes] Respiratory 20 18 Rate Blood Pressure 157/92 H Blood Pressure [Left Brachial artery] Blood Pressure 157/92 H [Right Brachial artery] O2 Saturation 96 94 Oxygen O2 Source Room air I&O (Last 24 Hrs): Intake and Output Totals x24h 07/31/23 08/01/23 08/02/23 23:59 23:59 23:59 Intake Total 4164.167 2770.000 725.833 Output Total 3805 Balance 408.879 9292.000 725.833 Extremities: Other (A very targeted examination was performed. The dressing that had been changed today was removed and the wound examined. The opening is approximately 7 mm in diameter without surrounding erythema or purulent exudate. There is excellent granulation tissue. Dressing applied.) - Results Results: Laboratory Results WBC 8.1 x10^3/uL (4.8-10.8) 08/02/23 05:35 RBC 4.55 10^6/uL (4.70-6.10) L 08/02/23 05:35 Hgb 14.2 g/dL (14.0-18.0) 08/02/23 05:35 Hct 42.8 % (42.0-52.0) 08/02/23 05:35 MCV 94.1 fL (80.0-94.0) H 08/02/23 05:35 MCH 31.2 pg (27.0-31.0) H 08/02/23 05:35 MCHC 33.2 g/dL (32.0-36.0) 08/02/23 05:35 RDW 12.6 % (12.0-15.0) 08/02/23 05:35 Plt Count 171 10^3/uL (130-450) 08/02/23 05:35 MPV 11.8 fL (7.4-11.4) H 08/02/23 05:35 Neut # (Auto) 5.1 10^3/uL (1.5-6.6) 08/02/23 05:35 Lymph # (Auto) 1.5 10^3/uL (1.5-3.5) 08/02/23 05:35 [place] # (Auto) 1.1 10^3/uL (0.0-1.0) H 08/02/23 05:35 Eos # (Auto) 0.4 10^3/uL (0.0-0.7) 08/02/23 05:35 Baso # (Auto) 0.1 10^3/uL (0.0-0.1) 08/02/23 05:35 Absolute Nucleated RBC 0.00 x10^3/uL 08/02/23 05:35 Nucleated RBC % 0.0 /100WBC 08/02/23 05:35 PT 14.3 secs (9.9-12.6) H 07/29/23 04:24 INR 1.3 (0.8-1.2) H 07/29/23 04:24 APTT 28.5 secs (24.9-33.3) 07/29/23 04:24 VBG pH 7.357 (7.31-7.41) 07/30/23 04:30 Ionized Calcium 1.10 mmol/L (1.15-1.33) L 07/30/23 04:30 Sodium 137 mmol/L (135-145) 08/01/23 10:53 Potassium 3.3 mmol/L (3.5-4.5) L 08/01/23 10:53 Chloride 104 mmol/L (101-111) 08/01/23 10:53 Carbon Dioxide 28 mmol/L (21-32) 08/01/23 10:53 Anion Gap 5.0 (6-13) L 08/01/23 10:53 BUN 15 mg/dL (6-20) 08/01/23 10:53 Creatinine 1.0 mg/dL (0.6-1.3) 08/01/23 10:53 Estimated GFR (MDRD) 72 (>89) L 08/01/23 10:53 Glucose 151 mg/dL (74-104) H 08/01/23 10:53 Estimat Average Glucose 134 mg/dL (70-100) H 07/29/23 09:30 Hemoglobin A1c % 6.3 % (4.27-6.07) H 07/29/23 09:30 Calcium 8.8 mg/dL (8.5-10.3) 08/01/23 10:53 Phosphorus 3.2 mg/dL (2.5-5.0) 08/01/23 10:53 Magnesium 1.8 mg/dL (1.7-2.3) 08/01/23 10:53 Total Bilirubin 0.7 mg/dL (0.2-1.0) 07/29/23 04:24 AST 13 IU/L (10-42) 07/29/23 04:24 ALT 8 IU/L (10-60) L 07/29/23 04:24 Alkaline Phosphatase 42 IU/L (42-121) 07/29/23 04:24 Lactate Dehydrogenase 143 IU/L (140-271) 07/29/23 04:24 Troponin I High Sens 10.7 ng/L (2.3-19.7) 07/28/23 19:50 C-Reactive Protein 3.1 mg/dL (<0.5) H 08/02/23 05:35 B-Natriuretic Peptide 111 pg/mL (5-100) H 07/30/23 04:30 Total Protein 6.4 g/dL (6.4-8.9) 07/29/23 04:24 Albumin 4.0 g/dL (3.2-5.5) 07/29/23 04:24 Globulin 2.4 g/dL (2.1-4.2) 07/29/23 04:24 Albumin/Globulin Ratio 1.7 (1.0-2.2) 07/29/23 04:24 Triglycerides 97 mg/dL (48-352) 07/30/23 04:30 Cholesterol 161 mg/dL (-200) 07/30/23 04:30 LDL Cholesterol, Calc 110 mg/dL (-129) 07/30/23 04:30 VLDL Cholesterol 19 mg/dL 07/30/23 04:30 HDL Cholesterol 32 mg/dL (60-) L 07/30/23 04:30 LDL/HDL Ratio 3.4 (<3.6) 07/30/23 04:30 Cholesterol/HDL Ratio 5.0 (<5.0) 07/30/23 04:30 Lipase 13 U/L (11-82) 07/28/23 15:17 Vitamin B12 187 pg/mL (180-914) 07/29/23 04:24 Urine Color YELLOW 07/28/23 16:35 Urine Clarity CLEAR (CLEAR) 07/28/23 16:35 Urine pH 7.0 PH (5.0-7.5) 07/28/23 16:35 Ur Specific [place] 1.020 (1.002-1.030) 07/28/23 16:35 Urine Protein TRACE mg/dL (NEGATIVE) 07/28/23 16:35 Urine Glucose (UA) 250 mg/dL (NEGATIVE) H 07/28/23 16:35 Urine Ketones 15 mg/dL (NEGATIVE) H 07/28/23 16:35 Urine Occult Blood NEGATIVE (NEGATIVE) 07/28/23 16:35 Urine Nitrite NEGATIVE (NEGATIVE) 07/28/23 16:35 Urine Bilirubin NEGATIVE (NEGATIVE) 07/28/23 16:35 Urine Urobilinogen 0.2 (NORMAL) E.U./dL (NORMAL) 07/28/23 16:35 Ur Leukocyte Esterase NEGATIVE (NEGATIVE) 07/28/23 16:35 Urine RBC 0-5 /HPF (0-5) 07/28/23 16:35 Urine WBC 0-3 /HPF (0-3) 07/28/23 16:35 Ur Squamous Epith Cells NONE SEEN (<= Few) 07/28/23 16:35 Urine Bacteria Rare /HPF (None Seen) 07/28/23 16:35 Urine Culture Comments NOT INDICATED 07/28/23 16:35 Nasal Influenza B PCR NOT DETECTED 07/28/23 17:20 Nasal Influenza A PCR NOT DETECTED 07/28/23 17:20 Nasal RSV (PCR) NOT DETECTED 07/28/23 17:20 Nasal Screen MRSA (PCR) NEGATIVE (NEGATIVE) 07/29/23 00:30 Nasal SARS-CoV-2 (PCR) NOT DETECTED 07/28/23 17:20 Last Dose Date 07/30/23 07/30/23 14:49 Last Dose Time 0340 07/30/23 14:49 Vancomycin Trough 10.8 ug/mL 07/30/23 14:49 ABX Reporting Has patient been on IV antibiotics over the past 48 hours?: No Current Medications - Current Medications Current Medications: Personally removed.
[2023-08-02] MEDS: QUEtiapine 25 MG TABLET PO SCH (20:41)
[2023-08-02] MEDS: ATORVASTATIN 40 MG TABLET PO SCH (20:42)
--- NOTE | 2023-08-02 21:57 | PROVIDER PROGRESS NOTE ---
Assessment/Plan - Problem List (1) Cerebrovascular accident (CVA) Qualifiers: CVA mechanism: other Qualified Code(s): I63.89 - Other cerebral infarction Assessment/Plan: Assessment/Plan: The patient presented obtunded, awoke after a day, was able to swallow, and speak. He has L arm weakness and severe L-sided neglect and worsened memory. Weakness has improved. Carotid Doppler showed moder Bilat carotid disease We were holding his oral anticoagulant for 48 hrs to prevent hemorrhagic transformation of the stroke, but have resumed his DOAC now. Since 07/31 he is displaying impulsivity and has very poor short term memory; he does not agree that he had a stroke, and does not realize that he has L sided neglect, tries to get up and walk on his own, and staggered twice when walking with a walker with PT Plan: Echo today Continue apixaban and aspirin. Continue atorvastatin (2) Poor memory Continue 1:1 monitoring. He will no longer be able to drive. A DMV form was completed by me today and given to SW to submit The daughter who lives next door to them is the 2nd in line DPOA, after the , and has said that likely her father needs to go to a LTC facility, and they have a financial plan for that. I updated SW. (3) Diabetic foot ulcer Woud culture grew out pseudomonas. Continue cefepime. Per General Surgery, no debridement is necessary. Dr Duran, [place] (her cell is [phone]) (4) Osteomyelitis At adm, I spoke to his ID specialist, Dr Duran re his Hx of the foot ulcer and the osteo, and she described how both were being treated: with oral Linezolid and on Doxycycline and topical antibx cream. However she suspected he was not compliant with taking the antibx. On 07/[address] Duran that the XRay did show osteo, but no soft tissue involvement except the ulcer WBC today is 6 but CRP anjana 0.9>> 2.7>> [address] Duran told me his last CRP was 0.8 Plan: Treatment changed to levofloxacin. Await final blood cx results Dr Duran wants him to get a PICC line and finish treatment of the osteo using iv antibx. Since he will need a SNF for stroke rehab, he could get iv antibx at the SNF as well. No PICC line inserted yet, as we are awaiting a final bld cx result, and also he has been here thru the New Years 3 day weekend/holiday, and no PICC lines are put in by Anesthesia on weekends. (5) Pseudomonas aruginosa infection Continue levofloxacin Cont probiotic We will be updating Dr Duran, ID (her cell is [phone]) (6) PVD Stable (7) Afib with RVR Continue metoprolol for rate control Continue apixaban. (8) DM Type 2 His A1c came back at 6.3, good glu control on home regimen Plan: Cont carb controlled diet Cont the restarted Metformin 500 mg BID Cont POC glucose checks ac&hs and hold parameters were placed for not giveing the Metformin Cont hypoglycemia protocol (9) Acute urinary retention Resolved - Current Meds Current Meds: Current Medications Generic Name Dose Route Start Last Admin Trade Name Freq PRN Reason Stop Dose Admin Apixaban 5 mg 07/31/23 09:00 08/02/23 20:42 Apixaban 5 Mg Tablet PO 5 mg BID SHON Administration Aspirin 81 mg 07/31/23 09:00 08/02/23 10:28 Aspirin Ec 81 Mg Tablet PO 81 mg DAILY SHON Administration Atorvastatin Calcium 80 mg 07/30/23 21:00 08/02/23 20:42 Atorvastatin 40 Mg Tablet PO 80 mg QPM SHON Administration Famotidine 20 mg 07/30/23 21:00 08/02/23 20:42 Famotidine 20 Mg Tablet PO 20 mg BID SHON Administration Haloperidol 1 mg 07/31/23 17:29 08/01/23 22:10 Haloperidol 5 Mg/Ml Vial IVP 1 mg Q6H PRN Administration Agitation Levofloxacin 750 mg 08/02/23 11:00 08/02/23 10:28 Levofloxacin 750 Mg Tablet PO 750 mg DAILY SHON Administration Lorazepam 0.5 mg 07/31/23 11:04 07/31/23 20:38 Lorazepam 2 Mg/Ml Vial IVP 0.5 mg Q30M PRN Administration CIWA >8 Protocol Metformin HCl 500 mg 08/01/23 11:10 08/02/23 17:29 Metformin 500 Mg Tablet PO 500 mg BIDWM SHON Administration Metoprolol Tartrate 25 mg 07/30/23 17:00 08/02/23 17:30 Metoprolol Tartrate 25 Mg Tablet PO 25 mg BIDWM SHON Administration Quetiapine Fumarate 50 mg 07/31/23 23:00 08/02/23 20:41 Quetiapine 25 Mg Tablet PO 50 mg QPM SHON Administration Sodium Chloride 10 ml 07/29/23 01:00 08/02/23 17:31 Sodium Chloride Flush 0.9% 10 Ml Syringe IVP Not Given 0100,0900,1700 SHON Sodium Chloride 10 ml 07/28/23 23:35 07/29/23 18:17 Sodium Chloride Flush 0.9% 10 Ml Syringe IVP 30 ml PRN PRN Administration NEEDED PER PROVIDER ORDERS - Lab Result Fish Bone Diagrams: 08/02/23 05:35 08/01/23 10:53 - Additional Planning My Orders: My Active Orders 08/02/23 11:00 levoFLOXacin 750 mg PO DAILY Objective Vital Signs: Vital Signs - 24 hr 08/01/23 08/02/23 08/02/23 23:06 00:32 01:30 Temperature 37.0 C 36.9 C 36.9 C Heart Rate [ 102 H Brachial] Heart Rate [ 95 Monitoring electrodes] Respiratory 20 20 20 Rate Blood Pressure Blood Pressure 152/85 H 156/97 H [Right Brachial artery] O2 Saturation 91 L 96 96 08/02/23 08/02/23 08/02/23 07:35 10:28 15:52 Temperature 36.7 C 37.0 C Heart Rate [ 90 92 Brachial] Heart Rate [ Monitoring electrodes] Respiratory 18 18 Rate Blood Pressure 157/92 H Blood Pressure 157/92 H 150/78 H [Right Brachial artery] O2 Saturation 94 96 08/02/23 17:30 Temperature Heart Rate [ Brachial] Heart Rate [ Monitoring electrodes] Respiratory Rate Blood Pressure 150/78 H Blood Pressure [Right Brachial artery] O2 Saturation Oxygen O2 Source Room air I&O (Last 24 Hrs): Intake and Output Totals x24h 07/31/23 08/01/23 08/02/23 23:59 23:59 23:59 Intake Total 4164.167 2770.000 1205.833 Output Total 3805 Balance 469.665 3207.000 1205.833 - Results Results: Laboratory Results WBC 8.1 x10^3/uL (4.8-10.8) 08/02/23 05:35 RBC 4.55 10^6/uL (4.70-6.10) L 08/02/23 05:35 Hgb 14.2 g/dL (14.0-18.0) 08/02/23 05:35 Hct 42.8 % (42.0-52.0) 08/02/23 05:35 MCV 94.1 fL (80.0-94.0) H 08/02/23 05:35 MCH 31.2 pg (27.0-31.0) H 08/02/23 05:35 MCHC 33.2 g/dL (32.0-36.0) 08/02/23 05:35 RDW 12.6 % (12.0-15.0) 08/02/23 05:35 Plt Count 171 10^3/uL (130-450) 08/02/23 05:35 MPV 11.8 fL (7.4-11.4) H 08/02/23 05:35 Neut # (Auto) 5.1 10^3/uL (1.5-6.6) 08/02/23 05:35 Lymph # (Auto) 1.5 10^3/uL (1.5-3.5) 08/02/23 05:35 [place] # (Auto) 1.1 10^3/uL (0.0-1.0) H 08/02/23 05:35 Eos # (Auto) 0.4 10^3/uL (0.0-0.7) 08/02/23 05:35 Baso # (Auto) 0.1 10^3/uL (0.0-0.1) 08/02/23 05:35 Absolute Nucleated RBC 0.00 x10^3/uL 08/02/23 05:35 Nucleated RBC % 0.0 /100WBC 08/02/23 05:35 PT 14.3 secs (9.9-12.6) H 07/29/23 04:24 INR 1.3 (0.8-1.2) H 07/29/23 04:24 APTT 28.5 secs (24.9-33.3) 07/29/23 04:24 VBG pH 7.357 (7.31-7.41) 07/30/23 04:30 Ionized Calcium 1.10 mmol/L (1.15-1.33) L 07/30/23 04:30 Sodium 137 mmol/L (135-145) 08/01/23 10:53 Potassium 3.3 mmol/L (3.5-4.5) L 08/01/23 10:53 Chloride 104 mmol/L (101-111) 08/01/23 10:53 Carbon Dioxide 28 mmol/L (21-32) 08/01/23 10:53 Anion Gap 5.0 (6-13) L 08/01/23 10:53 BUN 15 mg/dL (6-20) 08/01/23 10:53 Creatinine 1.0 mg/dL (0.6-1.3) 08/01/23 10:53 Estimated GFR (MDRD) 72 (>89) L 08/01/23 10:53 Glucose 151 mg/dL (74-104) H 08/01/23 10:53 Estimat Average Glucose 134 mg/dL (70-100) H 07/29/23 09:30 Hemoglobin A1c % 6.3 % (4.27-6.07) H 07/29/23 09:30 Calcium 8.8 mg/dL (8.5-10.3) 08/01/23 10:53 Phosphorus 3.2 mg/dL (2.5-5.0) 08/01/23 10:53 Magnesium 1.8 mg/dL (1.7-2.3) 08/01/23 10:53 Total Bilirubin 0.7 mg/dL (0.2-1.0) 07/29/23 04:24 AST 13 IU/L (10-42) 07/29/23 04:24 ALT 8 IU/L (10-60) L 07/29/23 04:24 Alkaline Phosphatase 42 IU/L (42-121) 07/29/23 04:24 Lactate Dehydrogenase 143 IU/L (140-271) 07/29/23 04:24 Troponin I High Sens 10.7 ng/L (2.3-19.7) 07/28/23 19:50 C-Reactive Protein 3.1 mg/dL (<0.5) H 08/02/23 05:35 B-Natriuretic Peptide 111 pg/mL (5-100) H 07/30/23 04:30 Total Protein 6.4 g/dL (6.4-8.9) 07/29/23 04:24 Albumin 4.0 g/dL (3.2-5.5) 07/29/23 04:24 Globulin 2.4 g/dL (2.1-4.2) 07/29/23 04:24 Albumin/Globulin Ratio 1.7 (1.0-2.2) 07/29/23 04:24 Triglycerides 97 mg/dL (48-352) 07/30/23 04:30 Cholesterol 161 mg/dL (-200) 07/30/23 04:30 LDL Cholesterol, Calc 110 mg/dL (-129) 07/30/23 04:30 VLDL Cholesterol 19 mg/dL 07/30/23 04:30 HDL Cholesterol 32 mg/dL (60-) L 07/30/23 04:30 LDL/HDL Ratio 3.4 (<3.6) 07/30/23 04:30 Cholesterol/HDL Ratio 5.0 (<5.0) 07/30/23 04:30 Lipase 13 U/L (11-82) 07/28/23 15:17 Vitamin B12 187 pg/mL (180-914) 07/29/23 04:24 Urine Color YELLOW 07/28/23 16:35 Urine Clarity CLEAR (CLEAR) 07/28/23 16:35 Urine pH 7.0 PH (5.0-7.5) 07/28/23 16:35 Ur Specific [place] 1.020 (1.002-1.030) 07/28/23 16:35 Urine Protein TRACE mg/dL (NEGATIVE) 07/28/23 16:35 Urine Glucose (UA) 250 mg/dL (NEGATIVE) H 07/28/23 16:35 Urine Ketones 15 mg/dL (NEGATIVE) H 07/28/23 16:35 Urine Occult Blood NEGATIVE (NEGATIVE) 07/28/23 16:35 Urine Nitrite NEGATIVE (NEGATIVE) 07/28/23 16:35 Urine Bilirubin NEGATIVE (NEGATIVE) 07/28/23 16:35 Urine Urobilinogen 0.2 (NORMAL) E.U./dL (NORMAL) 07/28/23 16:35 Ur Leukocyte Esterase NEGATIVE (NEGATIVE) 07/28/23 16:35 Urine RBC 0-5 /HPF (0-5) 07/28/23 16:35 Urine WBC 0-3 /HPF (0-3) 07/28/23 16:35 Ur Squamous Epith Cells NONE SEEN (<= Few) 07/28/23 16:35 Urine Bacteria Rare /HPF (None Seen) 07/28/23 16:35 Urine Culture Comments NOT INDICATED 07/28/23 16:35 Nasal Influenza B PCR NOT DETECTED 07/28/23 17:20 Nasal Influenza A PCR NOT DETECTED 07/28/23 17:20 Nasal RSV (PCR) NOT DETECTED 07/28/23 17:20 Nasal Screen MRSA (PCR) NEGATIVE (NEGATIVE) 07/29/23 00:30 Nasal SARS-CoV-2 (PCR) NOT DETECTED 07/28/23 17:20 Last Dose Date 07/30/23 07/30/23 14:49 Last Dose Time 0340 07/30/23 14:49 Vancomycin Trough 10.8 ug/mL 07/30/23 14:49 ABX Reporting Has patient been on IV antibiotics over the past 48 hours?: No
[2023-08-03] MEDS: SODIUM CHLORIDE FLUSH 0.9% 10 ML SYRINGE IVP SCH ×3 (01:07→17:59)
[2023-08-03 07:21] LABS: BASOPHILS # (AUTO) 0.1 10^3/uL (0.0-0.1); BASOPHILS % (AUTO) 0.9 %; EOSINOPHILS # (AUTO) 0.3 10^3/uL (0.0-0.7); EOSINOPHILS % (AUTO) 3.8 %; HGB - HEMOGLOBIN 14.2 g/dL (14.0-18.0); LYMPHOCYTES # (AUTO) 1.3 10^3/uL (1.5-3.5); LYMPHOCYTES % (AUTO) 17.2 %; MEAN CORPUSCULAR HEMOGLOBIN 31.6 pg (27.0-31.0); MEAN CORPUSCULAR HGB CONC 33.8 g/dL (32.0-36.0); MEAN CORPUSCULAR VOLUME 93.3 fL (80.0-94.0); MEAN PLATELET VOLUME 11.3 fL (7.4-11.4); MONOCYTES # (AUTO) 0.9 10^3/uL (0.0-1.0); MONOCYTES % (AUTO) 12.2 %; NEUTROPHILS % (AUTO) 64.6 %; PLT - PLATELET COUNT 166 10^3/uL (130-450); RED CELL DISTRIBUTION WIDTH 12.7 % (12.0-15.0); WHITE BLOOD COUNT 7.7 x10^3/uL (4.8-10.8)
[2023-08-03] MEDS: metFORMIN 500 MG TABLET PO SCH ×2 (09:32→17:57)
[2023-08-03] MEDS: APIXABAN 5 MG TABLET PO SCH ×2 (10:08→21:31)
[2023-08-03] MEDS: ASPIRIN EC 81 MG TABLET PO SCH (10:08)
[2023-08-03] MEDS: METOPROLOL TARTRATE 25 MG TABLET PO SCH ×2 (10:08→17:56)
[2023-08-03] MEDS: FAMOTIDINE 20 MG TABLET PO SCH ×2 (10:08→21:31)
[2023-08-03] MEDS: levoFLOXacin 750 MG TABLET PO SCH (10:09)
[2023-08-03] MEDS: SACCHAROMYCES BOULARDII 250 MG CAPSULE PO SCH (17:57)
[2023-08-03] MEDS: MULTIVITAMIN W/MINERALS TABLET PO SCH (17:59)
[2023-08-03] MEDS: CYANOCOBALAMIN 500 MCG TABLET PO SCH (17:59)
--- NOTE | 2023-08-03 18:00 | PROVIDER PROGRESS NOTE ---
Assessment/Plan - Problem List (1) Cerebrovascular accident (CVA) Qualifiers: CVA mechanism: other Qualified Code(s): I63.89 - Other cerebral infarction Assessment/Plan: Qualifiers: CVA mechanism: other Qualified Code(s): I63.89 - Other cerebral infarction Assessment/Plan: Weakness in left arm improved. Plan: Echocardiogram performed on August 02, 2023 revealed ejection fraction of 55%. Right ventricular function appears to be normal. There appeared to be no significant valvular heart disease. Continue apixaban and aspirin. Continue atorvastatin (2) Poor memory Continue 1:1 monitoring. (3) Diabetic foot ulcer Woud culture grew out pseudomonas. Continue Levofloxacin. Antibiotics changed to PO Levofloxacin due to impulsivness and pulling out IV. He is not a candidate for a pick because he most likely would pull it out. Per General Surgery, no debridement is necessary. Dr Duran, [place] (her cell is [phone]) (4) Osteomyelitis Plan: Treatment changed to levofloxacin. (5) Pseudomonas aruginosa infection Continue levofloxacin Cont probiotic (6) PVD Stable (7) Afib with RVR Continue metoprolol for rate control Continue apixaban. (8) DM Type 2 Plan: Cont carb controlled diet Cont the restarted Metformin 500 mg BID Cont POC glucose checks ac&hs and hold parameters were placed for not giveing the Metformin Cont hypoglycemia protocol (9) Acute urinary retention Resolved - Current Meds Current Meds: Current Medications Generic Name Dose Route Start Last Admin Trade Name Freq PRN Reason Stop Dose Admin Apixaban 5 mg 07/31/23 09:00 08/03/23 10:08 Apixaban 5 Mg Tablet PO 5 mg BID SHON Administration Aspirin 81 mg 07/31/23 09:00 08/03/23 10:08 Aspirin Ec 81 Mg Tablet PO 81 mg DAILY SHON Administration Atorvastatin Calcium 80 mg 07/30/23 21:00 08/02/23 20:42 Atorvastatin 40 Mg Tablet PO 80 mg QPM SHON Administration Famotidine 20 mg 07/30/23 21:00 08/03/23 10:08 Famotidine 20 Mg Tablet PO 20 mg BID SHON Administration Haloperidol 1 mg 07/31/23 17:29 08/01/23 22:10 Haloperidol 5 Mg/Ml Vial IVP 1 mg Q6H PRN Administration Agitation Levofloxacin 750 mg 08/02/23 11:00 08/03/23 10:09 Levofloxacin 750 Mg Tablet PO 750 mg DAILY SHON Administration Lorazepam 0.5 mg 07/31/23 11:04 07/31/23 20:38 Lorazepam 2 Mg/Ml Vial IVP 0.5 mg Q30M PRN Administration CIWA >8 Protocol Metformin HCl 500 mg 08/01/23 11:10 08/03/23 17:57 Metformin 500 Mg Tablet PO 500 mg BIDWM SHON Administration Metoprolol Tartrate 50 mg 08/03/23 08:00 08/03/23 17:56 Metoprolol Tartrate 25 Mg Tablet PO 50 mg BIDWM SHON Administration Quetiapine Fumarate 50 mg 07/31/23 23:00 08/02/23 20:41 Quetiapine 25 Mg Tablet PO 50 mg QPM SHON Administration Saccharomyces Boulardii 250 mg 08/03/23 17:00 08/03/23 17:57 Saccharomyces Boulardii 250 Mg Capsule PO 250 mg BIDWM SHON Administration Sodium Chloride 10 ml 07/29/23 01:00 08/03/23 09:32 Sodium Chloride Flush 0.9% 10 Ml Syringe IVP Not Given 0100,0900,1700 SHON Sodium Chloride 10 ml 07/28/23 23:35 07/29/23 18:17 Sodium Chloride Flush 0.9% 10 Ml Syringe IVP 30 ml PRN PRN Administration NEEDED PER PROVIDER ORDERS - Lab Result Fish Bone Diagrams: 08/03/23 07:15 08/01/23 10:53 - Additional Planning My Orders: My Active Orders 08/03/23 08:00 Metoprolol Tartrate [Lopressor] 50 mg PO BIDWM 08/03/23 Dinner Carb-controlled Diet [DIET] 08/03/23 17:00 Cyanocobalamin [Vitamin B-12] 500 mcg PO DAILY Multivitamin W/Minerals [Theragran M] 1 tab PO DAILYWM Saccharomyces Boulardii [Florastor] 250 mg PO BIDWM Subjective - Subjective Patient Reports: Other (Mental status continues to wax and wane. He has no complaints today. Denies chest pain, shortness of breath) Objective Vital Signs: Vital Signs - 24 hr 08/02/23 08/03/23 08/03/23 23:20 07:20 10:08 Temperature 36.6 C 37.2 C Heart Rate [ 73 113 H Brachial] Respiratory 24 20 Rate Blood Pressure 136/78 H Blood Pressure 137/84 H 136/78 H [Right Brachial artery] O2 Saturation 97 94 08/03/23 15:33 Temperature 36.7 C Heart Rate [ 78 Brachial] Respiratory 18 Rate Blood Pressure Blood Pressure 150/99 H [Right Brachial artery] O2 Saturation 97 Oxygen O2 Source Room air I&O (Last 24 Hrs): Intake and Output Totals x24h 08/01/23 08/02/23 08/03/23 23:59 23:59 23:59 Intake Total 2770.000 1605.833 580 Output Total 150 Balance 2770.000 1605.833 430 General: Alert, Cooperative, No acute distress HEENT: Atraumatic, PERRLA, EOMI Neck: Supple, No JVD, No thyromegaly Lymphatic: no adenopathy Neuro: Alert, Non Focal Cardiovascular: Regular rate, Normal S1, Normal S2, No murmurs Respiratory: Chest non-tender, No respiratory distress, Other (No wheezing, no crackles) Abdomen: Normal bowel sounds, Soft, No tenderness, No hepatospenomegaly Extremities: No clubbing, No cyanosis, No edema - Results Results: Laboratory Results WBC 7.7 x10^3/uL (4.8-10.8) 08/03/23 07:15 RBC 4.50 10^6/uL (4.70-6.10) L 08/03/23 07:15 Hgb 14.2 g/dL (14.0-18.0) 08/03/23 07:15 Hct 42.0 % (42.0-52.0) 08/03/23 07:15 MCV 93.3 fL (80.0-94.0) 08/03/23 07:15 MCH 31.6 pg (27.0-31.0) H 08/03/23 07:15 MCHC 33.8 g/dL (32.0-36.0) 08/03/23 07:15 RDW 12.7 % (12.0-15.0) 08/03/23 07:15 Plt Count 166 10^3/uL (130-450) 08/03/23 07:15 MPV 11.3 fL (7.4-11.4) 08/03/23 07:15 Neut # (Auto) 5.0 10^3/uL (1.5-6.6) 08/03/23 07:15 Lymph # (Auto) 1.3 10^3/uL (1.5-3.5) L 08/03/23 07:15 [place] # (Auto) 0.9 10^3/uL (0.0-1.0) 08/03/23 07:15 Eos # (Auto) 0.3 10^3/uL (0.0-0.7) 08/03/23 07:15 Baso # (Auto) 0.1 10^3/uL (0.0-0.1) 08/03/23 07:15 Absolute Nucleated RBC 0.00 x10^3/uL 08/03/23 07:15 Nucleated RBC % 0.0 /100WBC 08/03/23 07:15 PT 14.3 secs (9.9-12.6) H 07/29/23 04:24 INR 1.3 (0.8-1.2) H 07/29/23 04:24 APTT 28.5 secs (24.9-33.3) 07/29/23 04:24 VBG pH 7.357 (7.31-7.41) 07/30/23 04:30 Ionized Calcium 1.10 mmol/L (1.15-1.33) L 07/30/23 04:30 Sodium 137 mmol/L (135-145) 08/01/23 10:53 Potassium 3.3 mmol/L (3.5-4.5) L 08/01/23 10:53 Chloride 104 mmol/L (101-111) 08/01/23 10:53 Carbon Dioxide 28 mmol/L (21-32) 08/01/23 10:53 Anion Gap 5.0 (6-13) L 08/01/23 10:53 BUN 15 mg/dL (6-20) 08/01/23 10:53 Creatinine 1.0 mg/dL (0.6-1.3) 08/01/23 10:53 Estimated GFR (MDRD) 72 (>89) L 08/01/23 10:53 Glucose 151 mg/dL (74-104) H 08/01/23 10:53 Estimat Average Glucose 134 mg/dL (70-100) H 07/29/23 09:30 Hemoglobin A1c % 6.3 % (4.27-6.07) H 07/29/23 09:30 Calcium 8.8 mg/dL (8.5-10.3) 08/01/23 10:53 Phosphorus 3.2 mg/dL (2.5-5.0) 08/01/23 10:53 Magnesium 1.8 mg/dL (1.7-2.3) 08/01/23 10:53 Total Bilirubin 0.7 mg/dL (0.2-1.0) 07/29/23 04:24 AST 13 IU/L (10-42) 07/29/23 04:24 ALT 8 IU/L (10-60) L 07/29/23 04:24 Alkaline Phosphatase 42 IU/L (42-121) 07/29/23 04:24 Lactate Dehydrogenase 143 IU/L (140-271) 07/29/23 04:24 Troponin I High Sens 10.7 ng/L (2.3-19.7) 07/28/23 19:50 C-Reactive Protein 2.2 mg/dL (<0.5) H 08/03/23 07:15 B-Natriuretic Peptide 111 pg/mL (5-100) H 07/30/23 04:30 Total Protein 6.4 g/dL (6.4-8.9) 07/29/23 04:24 Albumin 4.0 g/dL (3.2-5.5) 07/29/23 04:24 Globulin 2.4 g/dL (2.1-4.2) 07/29/23 04:24 Albumin/Globulin Ratio 1.7 (1.0-2.2) 07/29/23 04:24 Triglycerides 97 mg/dL (48-352) 07/30/23 04:30 Cholesterol 161 mg/dL (-200) 07/30/23 04:30 LDL Cholesterol, Calc 110 mg/dL (-129) 07/30/23 04:30 VLDL Cholesterol 19 mg/dL 07/30/23 04:30 HDL Cholesterol 32 mg/dL (60-) L 07/30/23 04:30 LDL/HDL Ratio 3.4 (<3.6) 07/30/23 04:30 Cholesterol/HDL Ratio 5.0 (<5.0) 07/30/23 04:30 Lipase 13 U/L (11-82) 07/28/23 15:17 Vitamin B12 187 pg/mL (180-914) 07/29/23 04:24 Urine Color YELLOW 07/28/23 16:35 Urine Clarity CLEAR (CLEAR) 07/28/23 16:35 Urine pH 7.0 PH (5.0-7.5) 07/28/23 16:35 Ur Specific [place] 1.020 (1.002-1.030) 07/28/23 16:35 Urine Protein TRACE mg/dL (NEGATIVE) 07/28/23 16:35 Urine Glucose (UA) 250 mg/dL (NEGATIVE) H 07/28/23 16:35 Urine Ketones 15 mg/dL (NEGATIVE) H 07/28/23 16:35 Urine Occult Blood NEGATIVE (NEGATIVE) 07/28/23 16:35 Urine Nitrite NEGATIVE (NEGATIVE) 07/28/23 16:35 Urine Bilirubin NEGATIVE (NEGATIVE) 07/28/23 16:35 Urine Urobilinogen 0.2 (NORMAL) E.U./dL (NORMAL) 07/28/23 16:35 Ur Leukocyte Esterase NEGATIVE (NEGATIVE) 07/28/23 16:35 Urine RBC 0-5 /HPF (0-5) 07/28/23 16:35 Urine WBC 0-3 /HPF (0-3) 07/28/23 16:35 Ur Squamous Epith Cells NONE SEEN (<= Few) 07/28/23 16:35 Urine Bacteria Rare /HPF (None Seen) 07/28/23 16:35 Urine Culture Comments NOT INDICATED 07/28/23 16:35 Nasal Influenza B PCR NOT DETECTED 07/28/23 17:20 Nasal Influenza A PCR NOT DETECTED 07/28/23 17:20 Nasal RSV (PCR) NOT DETECTED 07/28/23 17:20 Nasal Screen MRSA (PCR) NEGATIVE (NEGATIVE) 07/29/23 00:30 Nasal SARS-CoV-2 (PCR) NOT DETECTED 07/28/23 17:20 Last Dose Date 07/30/23 07/30/23 14:49 Last Dose Time 0340 07/30/23 14:49 Vancomycin Trough 10.8 ug/mL 07/30/23 14:49 Current Medications - Current Medications Current Medications: Active Medications Acetaminophen (Acetaminophen 325 Mg Tablet) 650 mg PO Q4HR PRN PRN Reason: Pain or Fever > 38C (100.4F) Apixaban (Apixaban 5 Mg Tablet) 5 mg PO BID [facility] Last Admin: 08/03/23 10:08 Dose: 5 mg Aspirin (Aspirin Ec 81 Mg Tablet) 81 mg PO DAILY [facility] Last Admin: 08/03/23 10:08 Dose: 81 mg Atorvastatin Calcium (Atorvastatin 40 Mg Tablet) 80 mg PO QPM [facility] Last Admin: 08/02/23 20:42 Dose: 80 mg Cyanocobalamin (Cyanocobalamin 500 Mcg Tablet) 500 mcg PO DAILY [facility] Last Admin: 08/03/23 17:59 Dose: 500 mcg Famotidine (Famotidine 20 Mg Tablet) 20 mg PO BID [facility] Last Admin: 08/03/23 10:08 Dose: 20 mg Haloperidol (Haloperidol 5 Mg/Ml Vial) 1 mg IVP Q6H PRN PRN Reason: Agitation Last Admin: 08/01/23 22:10 Dose: 1 mg Hydralazine HCl (Hydralazine Inj 20 Mg/Ml Vial) 5 mg IVP Q6H PRN PRN Reason: bp > 220/120 Levofloxacin (Levofloxacin 750 Mg Tablet) 750 mg PO DAILY [facility] Last Admin: 08/03/23 10:09 Dose: 750 mg Lorazepam (Lorazepam 2 Mg/Ml Vial) 0.5 mg IVP Q30M PRN; Protocol PRN Reason: CIWA >8 Last Admin: 07/31/23 20:38 Dose: 0.5 mg Metformin HCl (Metformin 500 Mg Tablet) 500 mg PO BIDWM [facility] Last Admin: 08/03/23 17:57 Dose: 500 mg Metoprolol Tartrate (Metoprolol Tartrate 25 Mg Tablet) 50 mg PO BIDWM [facility] Last Admin: 08/03/23 17:56 Dose: 50 mg Multivitamins/Minerals (Multivitamin W/Minerals Tablet) 1 tab PO DAILYWM [facility] Last Admin: 08/03/23 17:59 Dose: 1 tab Ondansetron HCl (Ondansetron 4 Mg/2 Ml Vial) 4 mg IVP Q6HR PRN PRN Reason: Nausea / Vomiting Quetiapine Fumarate (Quetiapine 25 Mg Tablet) 50 mg PO QPM [facility] Last Admin: 08/02/23 20:41 Dose: 50 mg Saccharomyces Boulardii (Saccharomyces Boulardii 250 Mg Capsule) 250 mg PO BIDWM [facility] Last Admin: 08/03/23 17:57 Dose: 250 mg Sodium Chloride (Sodium Chloride Flush 0.9% 10 Ml Syringe) 10 ml IVP 0100,09 00,1700 [facility] Last Admin: 08/03/23 17:59 Dose: Not Given Sodium Chloride (Sodium Chloride Flush 0.9% 10 Ml Syringe) 10 ml IVP PRN PRN PRN Reason: NEEDED PER PROVIDER ORDERS Last Admin: 07/29/23 18:17 Dose: 30 ml Apixaban [Eliquis] 1 tab PO BID 07/28/23 Doxycycline [Vibramycin] 1 tab PO BIDWM 07/28/23 Gentamicin Sulfate 1 applic TOP DAILY 07/28/23 metFORMIN [Glucophage] 1 tab PO BID 07/28/23 Metoprolol Tartrate [Lopressor] 25 mg PO BID 07/29/23
[2023-08-03] MEDS: QUEtiapine 25 MG TABLET PO SCH (21:31)
[2023-08-03] MEDS: ATORVASTATIN 40 MG TABLET PO SCH (21:31)
[2023-08-04] MEDS: SODIUM CHLORIDE FLUSH 0.9% 10 ML SYRINGE IVP SCH ×3 (03:11→20:33)
[2023-08-04] MEDS: levoFLOXacin 750 MG TABLET PO SCH (09:04)
[2023-08-04] MEDS: MULTIVITAMIN W/MINERALS TABLET PO SCH (09:04)
[2023-08-04] MEDS: METOPROLOL TARTRATE 25 MG TABLET PO SCH ×2 (09:04→17:26)
[2023-08-04] MEDS: SACCHAROMYCES BOULARDII 250 MG CAPSULE PO SCH ×2 (09:04→17:26)
[2023-08-04] MEDS: FAMOTIDINE 20 MG TABLET PO SCH ×2 (09:04→20:33)
[2023-08-04] MEDS: metFORMIN 500 MG TABLET PO SCH ×2 (09:04→17:26)
[2023-08-04] MEDS: ASPIRIN EC 81 MG TABLET PO SCH (09:04)
[2023-08-04] MEDS: APIXABAN 5 MG TABLET PO SCH ×2 (09:04→20:34)
[2023-08-04] MEDS: CYANOCOBALAMIN 500 MCG TABLET PO SCH (09:04)
--- NOTE | 2023-08-04 19:20 | PROVIDER PROGRESS NOTE ---
Assessment/Plan - Problem List (1) Cerebrovascular accident (CVA) Qualifiers: CVA mechanism: other Qualified Code(s): I63.89 - Other cerebral infarction Assessment/Plan: Qualifiers: CVA mechanism: other Qualified Code(s): I63.89 - Other cerebral infarction Assessment/Plan: Weakness in left arm improved. Plan: Echocardiogram performed on August 02, 2023 revealed ejection fraction of 55%. Right ventricular function appears to be normal. There appeared to be no significant valvular heart disease. Continue apixaban and aspirin. Continue atorvastatin (2) Poor memory Improved. 1:1 discontinued (3) Diabetic foot ulcer Woud culture grew out pseudomonas. Continue Levofloxacin. Antibiotics changed to PO Levofloxacin due to impulsivness and pulling out IV. He is not a candidate for a pick because he most likely would pull it out. Per General Surgery, no debridement is necessary. Dr Duran, [place] (her cell is [phone]) (4) Osteomyelitis Plan: Treatment changed to levofloxacin (5) Pseudomonas aruginosa infection Continue levofloxacin Cont probiotic (6) PVD Stable (7) Afib with RVR Continue metoprolol for rate control Continue apixaban. (8) DM Type 2 Plan: Cont carb controlled diet Cont the Metformin 500 mg BID Cont POC glucose checks ac&hs and hold parameters were placed for not giveing the Metformin Cont hypoglycemia protocol (9) Acute urinary retention Resolved - Current Meds Current Meds: Current Medications Generic Name Dose Route Start Last Admin Trade Name Freq PRN Reason Stop Dose Admin Apixaban 5 mg 07/31/23 09:00 08/04/23 09:04 Apixaban 5 Mg Tablet PO 5 mg BID SHON Administration Aspirin 81 mg 07/31/23 09:00 08/04/23 09:04 Aspirin Ec 81 Mg Tablet PO 81 mg DAILY SHON Administration Atorvastatin Calcium 80 mg 07/30/23 21:00 08/03/23 21:31 Atorvastatin 40 Mg Tablet PO 80 mg QPM SOHN Administration Cyanocobalamin 500 mcg 08/03/23 17:00 08/04/23 09:04 Cyanocobalamin 500 Mcg Tablet PO 500 mcg DAILY SHON Administration Famotidine 20 mg 07/30/23 21:00 08/04/23 09:04 Famotidine 20 Mg Tablet PO 20 mg BID SHON Administration Haloperidol 1 mg 07/31/23 17:29 08/01/23 22:10 Haloperidol 5 Mg/Ml Vial IVP 1 mg Q6H PRN Administration Agitation Levofloxacin 750 mg 08/02/23 11:00 08/04/23 09:04 Levofloxacin 750 Mg Tablet PO 750 mg DAILY SHON Administration Lorazepam 0.5 mg 07/31/23 11:04 07/31/23 20:38 Lorazepam 2 Mg/Ml Vial IVP 0.5 mg Q30M PRN Administration CIWA >8 Protocol Metformin HCl 500 mg 08/01/23 11:10 08/04/23 17:26 Metformin 500 Mg Tablet PO Not Given BIDWM SHON Metoprolol Tartrate 50 mg 08/03/23 08:00 08/04/23 17:26 Metoprolol Tartrate 25 Mg Tablet PO 50 mg BIDWM SHON Administration Multivitamins/Minerals 1 tab 08/03/23 17:00 08/04/23 09:04 Multivitamin W/Minerals Tablet PO 1 tab DAILYWM SHON Administration Quetiapine Fumarate 50 mg 07/31/23 23:00 08/03/23 21:31 Quetiapine 25 Mg Tablet PO 50 mg QPM SHON Administration Saccharomyces Boulardii 250 mg 08/03/23 17:00 08/04/23 17:26 Saccharomyces Boulardii 250 Mg Capsule PO 250 mg BIDWM SHON Administration Sodium Chloride 10 ml 07/29/23 01:00 08/04/23 09:05 Sodium Chloride Flush 0.9% 10 Ml Syringe IVP Not Given 0100,0900,1700 SHON Sodium Chloride 10 ml 07/28/23 23:35 07/29/23 18:17 Sodium Chloride Flush 0.9% 10 Ml Syringe IVP 30 ml PRN PRN Administration NEEDED PER PROVIDER ORDERS - Lab Result Fish Bone Diagrams: 08/03/23 07:15 08/01/23 10:53 Subjective - Subjective Patient Reports: Other (Alert. Denies chest pain, wheezing, abdominal pain and shortness of breath.) Objective Vital Signs: Vital Signs - 24 hr 08/03/23 08/04/23 08/04/23 23:00 08:12 09:04 Temperature 36.8 C 37.1 C Heart Rate [ 87 86 Brachial] Respiratory 17 18 Rate Blood Pressure 127/86 H Blood Pressure 157/88 H 127/86 H [Right Brachial artery] O2 Saturation 95 96 08/04/23 16:01 Temperature 36.6 C Heart Rate [ 81 Brachial] Respiratory 20 Rate Blood Pressure Blood Pressure 148/97 H [Right Brachial artery] O2 Saturation 96 Oxygen O2 Source Room air I&O (Last 24 Hrs): Intake and Output Totals x24h 08/02/23 08/03/23 08/04/23 23:59 23:59 23:59 Intake Total 1605.833 580 300 Output Total 570 Balance 1605.833 10 300 General: Alert, Oriented x3, Cooperative, No acute distress HEENT: Atraumatic, PERRLA, EOMI Neck: Supple, No JVD, No thyromegaly Lymphatic: no adenopathy Neuro: Alert Cardiovascular: Regular rate, Normal S1, Normal S2, No murmurs Respiratory: Chest non-tender, No respiratory distress, Other (No wheezing. No crackles) Abdomen: Normal bowel sounds, Soft, No tenderness Extremities: No clubbing, No cyanosis, No edema Skin: No rashes - Results Results: Laboratory Results WBC 7.7 x10^3/uL (4.8-10.8) 08/03/23 07:15 RBC 4.50 10^6/uL (4.70-6.10) L 08/03/23 07:15 Hgb 14.2 g/dL (14.0-18.0) 08/03/23 07:15 Hct 42.0 % (42.0-52.0) 08/03/23 07:15 MCV 93.3 fL (80.0-94.0) 08/03/23 07:15 MCH 31.6 pg (27.0-31.0) H 08/03/23 07:15 MCHC 33.8 g/dL (32.0-36.0) 08/03/23 07:15 RDW 12.7 % (12.0-15.0) 08/03/23 07:15 Plt Count 166 10^3/uL (130-450) 08/03/23 07:15 MPV 11.3 fL (7.4-11.4) 08/03/23 07:15 Neut # (Auto) 5.0 10^3/uL (1.5-6.6) 08/03/23 07:15 Lymph # (Auto) 1.3 10^3/uL (1.5-3.5) L 08/03/23 07:15 [place] # (Auto) 0.9 10^3/uL (0.0-1.0) 08/03/23 07:15 Eos # (Auto) 0.3 10^3/uL (0.0-0.7) 08/03/23 07:15 Baso # (Auto) 0.1 10^3/uL (0.0-0.1) 08/03/23 07:15 Absolute Nucleated RBC 0.00 x10^3/uL 08/03/23 07:15 Nucleated RBC % 0.0 /100WBC 08/03/23 07:15 PT 14.3 secs (9.9-12.6) H 07/29/23 04:24 INR 1.3 (0.8-1.2) H 07/29/23 04:24 APTT 28.5 secs (24.9-33.3) 07/29/23 04:24 VBG pH 7.357 (7.31-7.41) 07/30/23 04:30 Ionized Calcium 1.10 mmol/L (1.15-1.33) L 07/30/23 04:30 Sodium 137 mmol/L (135-145) 08/01/23 10:53 Potassium 3.3 mmol/L (3.5-4.5) L 08/01/23 10:53 Chloride 104 mmol/L (101-111) 08/01/23 10:53 Carbon Dioxide 28 mmol/L (21-32) 08/01/23 10:53 Anion Gap 5.0 (6-13) L 08/01/23 10:53 BUN 15 mg/dL (6-20) 08/01/23 10:53 Creatinine 1.0 mg/dL (0.6-1.3) 08/01/23 10:53 Estimated GFR (MDRD) 72 (>89) L 08/01/23 10:53 Glucose 151 mg/dL (74-104) H 08/01/23 10:53 Estimat Average Glucose 134 mg/dL (70-100) H 07/29/23 09:30 Hemoglobin A1c % 6.3 % (4.27-6.07) H 07/29/23 09:30 Calcium 8.8 mg/dL (8.5-10.3) 08/01/23 10:53 Phosphorus 3.2 mg/dL (2.5-5.0) 08/01/23 10:53 Magnesium 1.8 mg/dL (1.7-2.3) 08/01/23 10:53 Total Bilirubin 0.7 mg/dL (0.2-1.0) 07/29/23 04:24 AST 13 IU/L (10-42) 07/29/23 04:24 ALT 8 IU/L (10-60) L 07/29/23 04:24 Alkaline Phosphatase 42 IU/L (42-121) 07/29/23 04:24 Lactate Dehydrogenase 143 IU/L (140-271) 07/29/23 04:24 Troponin I High Sens 10.7 ng/L (2.3-19.7) 07/28/23 19:50 C-Reactive Protein 2.2 mg/dL (<0.5) H 08/03/23 07:15 B-Natriuretic Peptide 111 pg/mL (5-100) H 07/30/23 04:30 Total Protein 6.4 g/dL (6.4-8.9) 07/29/23 04:24 Albumin 4.0 g/dL (3.2-5.5) 07/29/23 04:24 Globulin 2.4 g/dL (2.1-4.2) 07/29/23 04:24 Albumin/Globulin Ratio 1.7 (1.0-2.2) 07/29/23 04:24 Triglycerides 97 mg/dL (48-352) 07/30/23 04:30 Cholesterol 161 mg/dL (-200) 07/30/23 04:30 LDL Cholesterol, Calc 110 mg/dL (-129) 07/30/23 04:30 VLDL Cholesterol 19 mg/dL 07/30/23 04:30 HDL Cholesterol 32 mg/dL (60-) L 07/30/23 04:30 LDL/HDL Ratio 3.4 (<3.6) 07/30/23 04:30 Cholesterol/HDL Ratio 5.0 (<5.0) 07/30/23 04:30 Lipase 13 U/L (11-82) 07/28/23 15:17 Vitamin B12 187 pg/mL (180-914) 07/29/23 04:24 Urine Color YELLOW 07/28/23 16:35 Urine Clarity CLEAR (CLEAR) 07/28/23 16:35 Urine pH 7.0 PH (5.0-7.5) 07/28/23 16:35 Ur Specific [place] 1.020 (1.002-1.030) 07/28/23 16:35 Urine Protein TRACE mg/dL (NEGATIVE) 07/28/23 16:35 Urine Glucose (UA) 250 mg/dL (NEGATIVE) H 07/28/23 16:35 Urine Ketones 15 mg/dL (NEGATIVE) H 07/28/23 16:35 Urine Occult Blood NEGATIVE (NEGATIVE) 07/28/23 16:35 Urine Nitrite NEGATIVE (NEGATIVE) 07/28/23 16:35 Urine Bilirubin NEGATIVE (NEGATIVE) 07/28/23 16:35 Urine Urobilinogen 0.2 (NORMAL) E.U./dL (NORMAL) 07/28/23 16:35 Ur Leukocyte Esterase NEGATIVE (NEGATIVE) 07/28/23 16:35 Urine RBC 0-5 /HPF (0-5) 07/28/23 16:35 Urine WBC 0-3 /HPF (0-3) 07/28/23 16:35 Ur Squamous Epith Cells NONE SEEN (<= Few) 07/28/23 16:35 Urine Bacteria Rare /HPF (None Seen) 07/28/23 16:35 Urine Culture Comments NOT INDICATED 07/28/23 16:35 Nasal Influenza B PCR NOT DETECTED 07/28/23 17:20 Nasal Influenza A PCR NOT DETECTED 07/28/23 17:20 Nasal RSV (PCR) NOT DETECTED 07/28/23 17:20 Nasal Screen MRSA (PCR) NEGATIVE (NEGATIVE) 07/29/23 00:30 Nasal SARS-CoV-2 (PCR) NOT DETECTED 07/28/23 17:20 Last Dose Date 07/30/23 07/30/23 14:49 Last Dose Time 0340 07/30/23 14:49 Vancomycin Trough 10.8 ug/mL 07/30/23 14:49 ABX Reporting Has patient been on IV antibiotics over the past 48 hours?: Yes Current Medications - Current Medications Current Medications: Active Medications Acetaminophen (Acetaminophen 325 Mg Tablet) 650 mg PO Q4HR PRN PRN Reason: Pain or Fever > 38C (100.4F) Apixaban (Apixaban 5 Mg Tablet) 5 mg PO BID SHON Last Admin: 08/04/23 09:04 Dose: 5 mg Aspirin (Aspirin Ec 81 Mg Tablet) 81 mg PO DAILY [facility] Last Admin: 08/04/23 09:04 Dose: 81 mg Atorvastatin Calcium (Atorvastatin 40 Mg Tablet) 80 mg PO QPM [facility] Last Admin: 08/03/23 21:31 Dose: 80 mg Cyanocobalamin (Cyanocobalamin 500 Mcg Tablet) 500 mcg PO DAILY [facility] Last Admin: 08/04/23 09:04 Dose: 500 mcg Famotidine (Famotidine 20 Mg Tablet) 20 mg PO BID [facility] Last Admin: 08/04/23 09:04 Dose: 20 mg Haloperidol (Haloperidol 5 Mg/Ml Vial) 1 mg IVP Q6H PRN PRN Reason: Agitation Last Admin: 08/01/23 22:10 Dose: 1 mg Hydralazine HCl (Hydralazine Inj 20 Mg/Ml Vial) 5 mg IVP Q6H PRN PRN Reason: bp > 220/120 Levofloxacin (Levofloxacin 750 Mg Tablet) 750 mg PO DAILY [facility] Last Admin: 08/04/23 09:04 Dose: 750 mg Lorazepam (Lorazepam 2 Mg/Ml Vial) 0.5 mg IVP Q30M PRN; Protocol PRN Reason: CIWA >8 Last Admin: 07/31/23 20:38 Dose: 0.5 mg Metformin HCl (Metformin 500 Mg Tablet) 500 mg PO BIDWM [facility] Last Admin: 08/04/23 17:26 Dose: Not Given Metoprolol Tartrate (Metoprolol Tartrate 25 Mg Tablet) 50 mg PO BIDWM [facility] Last Admin: 08/04/23 17:26 Dose: 50 mg Multivitamins/Minerals (Multivitamin W/Minerals Tablet) 1 tab PO DAILYWM [facility] Last Admin: 08/04/23 09:04 Dose: 1 tab Ondansetron HCl (Ondansetron 4 Mg/2 Ml Vial) 4 mg IVP Q6HR PRN PRN Reason: Nausea / Vomiting Quetiapine Fumarate (Quetiapine 25 Mg Tablet) 50 mg PO QPM [facility] Last Admin: 08/03/23 21:31 Dose: 50 mg Saccharomyces Boulardii (Saccharomyces Boulardii 250 Mg Capsule) 250 mg PO BIDWM [facility] Last Admin: 08/04/23 17:26 Dose: 250 mg Sodium Chloride (Sodium Chloride Flush 0.9% 10 Ml Syringe) 10 ml IVP 0100,0900,1700 SHON Last Admin: 08/04/23 09:05 Dose: Not Given Sodium Chloride (Sodium Chloride Flush 0.9% 10 Ml Syringe) 10 ml IVP PRN PRN PRN Reason: NEEDED PER PROVIDER ORDERS Last Admin: 07/29/23 18:17 Dose: 30 ml Apixaban [Eliquis] 1 tab PO BID 07/28/23 Doxycycline [Vibramycin] 1 tab PO BIDWM 07/28/23 Gentamicin Sulfate 1 applic TOP DAILY 07/28/23 metFORMIN [Glucophage] 1 tab PO BID 07/28/23 Metoprolol Tartrate [Lopressor] 25 mg PO BID 07/29/23
[2023-08-04] MEDS: ATORVASTATIN 40 MG TABLET PO SCH (20:33)
[2023-08-04] MEDS: QUEtiapine 25 MG TABLET PO SCH (20:34)
[2023-08-05] MEDS: SODIUM CHLORIDE FLUSH 0.9% 10 ML SYRINGE IVP SCH ×4 (01:08→23:54)
[2023-08-05] MEDS: ASPIRIN EC 81 MG TABLET PO SCH (08:59)
[2023-08-05] MEDS: FAMOTIDINE 20 MG TABLET PO SCH ×2 (08:59→20:56)
[2023-08-05] MEDS: CYANOCOBALAMIN 500 MCG TABLET PO SCH (08:59)
[2023-08-05] MEDS: levoFLOXacin 750 MG TABLET PO SCH (08:59)
[2023-08-05] MEDS: MULTIVITAMIN W/MINERALS TABLET PO SCH (08:59)
[2023-08-05] MEDS: SACCHAROMYCES BOULARDII 250 MG CAPSULE PO SCH ×2 (08:59→17:03)
[2023-08-05] MEDS: metFORMIN 500 MG TABLET PO SCH ×2 (08:59→17:03)
[2023-08-05] MEDS: APIXABAN 5 MG TABLET PO SCH ×2 (08:59→20:56)
[2023-08-05] MEDS: METOPROLOL TARTRATE 25 MG TABLET PO SCH ×2 (09:00→17:03)
--- NOTE | 2023-08-05 20:10 | PROVIDER PROGRESS NOTE ---
Assessment/Plan - Problem List (1) Cerebrovascular accident (CVA) Qualifiers: CVA mechanism: other Qualified Code(s): I63.89 - Other cerebral infarction Assessment/Plan: Assessment/Plan: Patient demonstrates good strength in all 4 extremities. Plan: Echocardiogram performed on August 02, 2023 revealed ejection fraction of 55%. Right ventricular function appears to be normal. There appeared to be no significant valvular heart disease. Continue apixaban and aspirin. Continue atorvastatin (2) Poor memory Improved. 1:1 discontinued (3) Diabetic foot ulcer Woud culture grew out pseudomonas. Given patient's mental status has significantly improved, will initiate treatmen t with Zosyn. Cefepime has been known to cause confusion and patient's therefore it will not be restarted. Discontinue levofloxacin Per General Surgery, no debridement is necessary. Dr Duran, [place] (her cell is [phone]) (4) Osteomyelitis Plan: Treatment changed to Zosyn (5) Pseudomonas aruginosa infection Treatment changed to Zosyn Cont probiotic (6) PVD Stable (7) Afib with RVR Continue metoprolol for rate control Continue apixaban. (8) DM Type 2 Plan: Cont carb controlled diet Cont the Metformin 500 mg BID Cont POC glucose checks ac&hs and hold parameters were placed for not giveing the Metformin Cont hypoglycemia protocol (9) Acute urinary retention Resolved - Current Meds Current Meds: Current Medications Generic Name Dose Route Start Last Admin Trade Name Freq PRN Reason Stop Dose Admin Apixaban 5 mg 07/31/23 09:00 08/05/23 08:59 Apixaban 5 Mg Tablet PO 5 mg BID SHON Administration Aspirin 81 mg 07/31/23 09:00 08/05/23 08:59 Aspirin Ec 81 Mg Tablet PO 81 mg DAILY SHON Administration Atorvastatin Calcium 80 mg 07/30/23 21:00 08/04/23 20:33 Atorvastatin 40 Mg Tablet PO 80 mg QPM SHON Administration Cyanocobalamin 500 mcg 08/03/23 17:00 08/05/23 08:59 Cyanocobalamin 500 Mcg Tablet PO 500 mcg DAILY SHON Administration Famotidine 20 mg 07/30/23 21:00 08/05/23 08:59 Famotidine 20 Mg Tablet PO 20 mg BID SHON Administration Levofloxacin 750 mg 08/02/23 11:00 08/05/23 08:59 Levofloxacin 750 Mg Tablet PO 750 mg DAILY SHON Administration Metformin HCl 500 mg 08/01/23 11:10 08/05/23 17:03 Metformin 500 Mg Tablet PO 500 mg BIDWM SHON Administration Metoprolol Tartrate 50 mg 08/03/23 08:00 08/05/23 17:03 Metoprolol Tartrate 25 Mg Tablet PO 50 mg BIDWM SHON Administration Multivitamins/Minerals 1 tab 08/03/23 17:00 08/05/23 08:59 Multivitamin W/Minerals Tablet PO 1 tab DAILYWM SHON Administration Quetiapine Fumarate 50 mg 07/31/23 23:00 08/04/23 20:34 Quetiapine 25 Mg Tablet PO 50 mg QPM SHON Administration Saccharomyces Boulardii 250 mg 08/03/23 17:00 08/05/23 17:03 Saccharomyces Boulardii 250 Mg Capsule PO 250 mg BIDWM SHON Administration Sodium Chloride 10 ml 07/29/23 01:00 08/05/23 17:03 Sodium Chloride Flush 0.9% 10 Ml Syringe IVP Not Given 0100,0900,1700 [facility] Sodium Chloride 10 ml 07/28/23 23:35 07/29/23 18:17 Sodium Chloride Flush 0.9% 10 Ml Syringe IVP 30 ml PRN PRN Administration NEEDED PER PROVIDER ORDERS - Lab Result Fish Bone Diagrams: 08/03/23 07:15 08/01/23 10:53 Subjective - Subjective Patient Reports: Other (Alert and oriented to person time place and situation. He denies chest pain, weakness, nausea, vomiting and shortness of breath.) Objective Vital Signs: Vital Signs - 24 hr 08/05/23 08/05/23 08/05/23 00:00 08:09 09:00 Temperature 36.8 C 37.1 C Heart Rate [ 92 92 Brachial] Respiratory 18 16 Rate Blood Pressure 133/87 H Blood Pressure 133/87 H [Left Brachial artery] Blood Pressure 151/80 H [Right Brachial artery] O2 Saturation 93 97 08/05/23 16:01 Temperature 36.6 C Heart Rate [ 80 Brachial] Respiratory 17 Rate Blood Pressure Blood Pressure [Left Brachial artery] Blood Pressure 152/87 H [Right Brachial artery] O2 Saturation 95 Oxygen O2 Source Room air I&O (Last 24 Hrs): Intake and Output Totals x24h 08/03/23 08/04/2324 23:59 23:59 23:59 Intake Total 580 650 120 Output Total 570 Balance 10 650 120 General: Alert, Oriented x3, No acute distress HEENT: Atraumatic, PERRLA, EOMI Neck: Supple, No JVD, No thyromegaly Lymphatic: no adenopathy Neuro: Alert, Non Focal Cardiovascular: Regular rate, Normal S1, Normal S2 Respiratory: Chest non-tender, No respiratory distress, Other (No wheezing no crackles.) Abdomen: Normal bowel sounds, Soft, No tenderness Extremities: No clubbing, No cyanosis Skin: No rashes - Results Results: Laboratory Results WBC 7.7 x10^3/uL (4.8-10.8) 08/03/23 07:15 RBC 4.50 10^6/uL (4.70-6.10) L 08/03/23 07:15 Hgb 14.2 g/dL (14.0-18.0) 08/03/23 07:15 Hct 42.0 % (42.0-52.0) 08/03/23 07:15 MCV 93.3 fL (80.0-94.0) 08/03/23 07:15 MCH 31.6 pg (27.0-31.0) H 08/03/23 07:15 MCHC 33.8 g/dL (32.0-36.0) 08/03/23 07:15 RDW 12.7 % (12.0-15.0) 08/03/23 07:15 Plt Count 166 10^3/uL (130-450) 08/03/23 07:15 MPV 11.3 fL (7.4-11.4) 08/03/23 07:15 Neut # (Auto) 5.0 10^3/uL (1.5-6.6) 08/03/23 07:15 Lymph # (Auto) 1.3 10^3/uL (1.5-3.5) L 08/03/23 07:15 [place] # (Auto) 0.9 10^3/uL (0.0-1.0) 08/03/23 07:15 Eos # (Auto) 0.3 10^3/uL (0.0-0.7) 08/03/23 07:15 Baso # (Auto) 0.1 10^3/uL (0.0-0.1) 08/03/23 07:15 Absolute Nucleated RBC 0.00 x10^3/uL 08/03/23 07:15 Nucleated RBC % 0.0 /100WBC 08/03/23 07:15 PT 14.3 secs (9.9-12.6) H 07/29/23 04:24 INR 1.3 (0.8-1.2) H 07/29/23 04:24 APTT 28.5 secs (24.9-33.3) 07/29/23 04:24 VBG pH 7.357 (7.31-7.41) 07/30/23 04:30 Ionized Calcium 1.10 mmol/L (1.15-1.33) L 07/30/23 04:30 Sodium 137 mmol/L (135-145) 08/01/23 10:53 Potassium 3.3 mmol/L (3.5-4.5) L 08/01/23 10:53 Chloride 104 mmol/L (101-111) 08/01/23 10:53 Carbon Dioxide 28 mmol/L (21-32) 08/01/23 10:53 Anion Gap 5.0 (6-13) L 08/01/23 10:53 BUN 15 mg/dL (6-20) 08/01/23 10:53 Creatinine 1.0 mg/dL (0.6-1.3) 08/01/23 10:53 Estimated GFR (MDRD) 72 (>89) L 08/01/23 10:53 Glucose 151 mg/dL (74-104) H 08/01/23 10:53 Estimat Average Glucose 134 mg/dL (70-100) H 07/29/23 09:30 Hemoglobin A1c % 6.3 % (4.27-6.07) H 07/29/23 09:30 Calcium 8.8 mg/dL (8.5-10.3) 08/01/23 10:53 Phosphorus 3.2 mg/dL (2.5-5.0) 08/01/23 10:53 Magnesium 1.8 mg/dL (1.7-2.3) 08/01/23 10:53 Total Bilirubin 0.7 mg/dL (0.2-1.0) 07/29/23 04:24 AST 13 IU/L (10-42) 07/29/23 04:24 ALT 8 IU/L (10-60) L 07/29/23 04:24 Alkaline Phosphatase 42 IU/L (42-121) 07/29/23 04:24 Lactate Dehydrogenase 143 IU/L (140-271) 07/29/23 04:24 Troponin I High Sens 10.7 ng/L (2.3-19.7) 07/28/23 19:50 C-Reactive Protein 2.2 mg/dL (<0.5) H 08/03/23 07:15 B-Natriuretic Peptide 111 pg/mL (5-100) H 07/30/23 04:30 Total Protein 6.4 g/dL (6.4-8.9) 07/29/23 04:24 Albumin 4.0 g/dL (3.2-5.5) 07/29/23 04:24 Globulin 2.4 g/dL (2.1-4.2) 07/29/23 04:24 Albumin/Globulin Ratio 1.7 (1.0-2.2) 07/29/23 04:24 Triglycerides 97 mg/dL (48-352) 07/30/23 04:30 Cholesterol 161 mg/dL (-200) 07/30/23 04:30 LDL Cholesterol, Calc 110 mg/dL (-129) 07/30/23 04:30 VLDL Cholesterol 19 mg/dL 07/30/23 04:30 HDL Cholesterol 32 mg/dL (60-) L 07/30/23 04:30 LDL/HDL Ratio 3.4 (<3.6) 07/30/23 04:30 Cholesterol/HDL Ratio 5.0 (<5.0) 07/30/23 04:30 Lipase 13 U/L (11-82) 07/28/23 15:17 Vitamin B12 187 pg/mL (180-914) 07/29/23 04:24 Urine Color YELLOW 07/28/23 16:35 Urine Clarity CLEAR (CLEAR) 07/28/23 16:35 Urine pH 7.0 PH (5.0-7.5) 07/28/23 16:35 Ur Specific [place] 1.020 (1.002-1.030) 07/28/23 16:35 Urine Protein TRACE mg/dL (NEGATIVE) 07/28/23 16:35 Urine Glucose (UA) 250 mg/dL (NEGATIVE) H 07/28/23 16:35 Urine Ketones 15 mg/dL (NEGATIVE) H 07/28/23 16:35 Urine Occult Blood NEGATIVE (NEGATIVE) 07/28/23 16:35 Urine Nitrite NEGATIVE (NEGATIVE) 07/28/23 16:35 Urine Bilirubin NEGATIVE (NEGATIVE) 07/28/23 16:35 Urine Urobilinogen 0.2 (NORMAL) E.U./dL (NORMAL) 07/28/23 16:35 Ur Leukocyte Esterase NEGATIVE (NEGATIVE) 07/28/23 16:35 Urine RBC 0-5 /HPF (0-5) 07/28/23 16:35 Urine WBC 0-3 /HPF (0-3) 07/28/23 16:35 Ur Squamous Epith Cells NONE SEEN (<= Few) 07/28/23 16:35 Urine Bacteria Rare /HPF (None Seen) 07/28/23 16:35 Urine Culture Comments NOT INDICATED 07/28/23 16:35 Nasal Influenza B PCR NOT DETECTED 07/28/23 17:20 Nasal Influenza A PCR NOT DETECTED 07/28/23 17:20 Nasal RSV (PCR) NOT DETECTED 07/28/23 17:20 Nasal Screen MRSA (PCR) NEGATIVE (NEGATIVE) 07/29/23 00:30 Nasal SARS-CoV-2 (PCR) NOT DETECTED 07/28/23 17:20 Last Dose Date 07/30/23 07/30/23 14:49 Last Dose Time 0340 07/30/23 14:49 Vancomycin Trough 10.8 ug/mL 07/30/23 14:49 ABX Reporting Has patient been on IV antibiotics over the past 48 hours?: Yes Current Medications - Current Medications Current Medications: Active Medications Acetaminophen (Acetaminophen 325 Mg Tablet) 650 mg PO Q4HR PRN PRN Reason: Pain or Fever > 38C (100.4F) Apixaban (Apixaban 5 Mg Tablet) 5 mg PO BID [facility] Last Admin: 08/05/23 08:59 Dose: 5 mg Aspirin (Aspirin Ec 81 Mg Tablet) 81 mg PO DAILY [facility] Last Admin: 08/05/23 08:59 Dose: 81 mg Atorvastatin Calcium (Atorvastatin 40 Mg Tablet) 80 mg PO QPM [facility] Last Admin: 08/04/23 20:33 Dose: 80 mg Cyanocobalamin (Cyanocobalamin 500 Mcg Tablet) 500 mcg PO DAILY [facility] Last Admin: 08/05/23 08:59 Dose: 500 mcg Famotidine (Famotidine 20 Mg Tablet) 20 mg PO BID [facility] Last Admin: 08/05/23 08:59 Dose: 20 mg Hydralazine HCl (Hydralazine Inj 20 Mg/Ml Vial) 5 mg IVP Q6H PRN PRN Reason: bp > 220/120 Piperacillin Sod/Tazobactam (Sod 3.375 gm/ Sodium Chloride) 100 mls @ 200 mls/hr IV Q6H [facility] Metformin HCl (Metformin 500 Mg Tablet) 500 mg PO BIDWM [facility] Last Admin: 08/05/23 17:03 Dose: 500 mg Metoprolol Tartrate (Metoprolol Tartrate 25 Mg Tablet) 50 mg PO BIDWM [facility] Last Admin: 08/05/23 17:03 Dose: 50 mg Multivitamins/Minerals (Multivitamin W/Minerals Tablet) 1 tab PO DAILYWM [facility] Last Admin: 08/05/23 08:59 Dose: 1 tab Ondansetron HCl (Ondansetron 4 Mg/2 Ml Vial) 4 mg IVP Q6HR PRN PRN Reason: Nausea / Vomiting Quetiapine Fumarate (Quetiapine 25 Mg Tablet) 50 mg PO QPM [facility] Last Admin: 08/04/23 20:34 Dose: 50 mg Saccharomyces Boulardii (Saccharomyces Boulardii 250 Mg Capsule) 250 mg PO B IDWM [facility] Last Admin: 08/05/23 17:03 Dose: 250 mg Sodium Chloride (Sodium Chloride Flush 0.9% 10 Ml Syringe) 10 ml IVP 0100,0900,1700 [facility] Last Admin: 08/05/23 17:03 Dose: Not Given Sodium Chloride (Sodium Chloride Flush 0.9% 10 Ml Syringe) 10 ml IVP PRN PRN PRN Reason: NEEDED PER PROVIDER ORDERS Last Admin: 07/29/23 18:17 Dose: 30 ml Apixaban [Eliquis] 1 tab PO BID 07/28/23 Doxycycline [Vibramycin] 1 tab PO BIDWM 07/28/23 Gentamicin Sulfate 1 applic TOP DAILY 07/28/23 metFORMIN [Glucophage] 1 tab PO BID 07/28/23 Metoprolol Tartrate [Lopressor] 25 mg PO BID 07/29/23
[2023-08-05] MEDS: ATORVASTATIN 40 MG TABLET PO SCH (20:56)
[2023-08-05] MEDS: QUEtiapine 25 MG TABLET PO SCH (20:56)
[2023-08-05] MEDS: PIPERACILLIN/TAZOBACTAM 3.375 GM in SODIUM CHLORIDE 0.9% MINIBAG 100 ML IV SCH (20:57)
[2023-08-06] MEDS: PIPERACILLIN/TAZOBACTAM 3.375 GM in SODIUM CHLORIDE 0.9% MINIBAG 100 ML IV SCH ×4 (02:35→21:15)
[2023-08-06] MEDS: SODIUM CHLORIDE FLUSH 0.9% 10 ML SYRINGE IVP PRN ×2 (02:35→21:15)
[2023-08-06 06:11] LABS: BASOPHILS # (AUTO) 0.1 10^3/uL (0.0-0.1); BASOPHILS % (AUTO) 0.7 %; EOSINOPHILS # (AUTO) 0.3 10^3/uL (0.0-0.7); EOSINOPHILS % (AUTO) 3.1 %; HCT - HEMATOCRIT 41.3 % (42.0-52.0); HGB - HEMOGLOBIN 13.7 g/dL (14.0-18.0); LYMPHOCYTES # (AUTO) 2.1 10^3/uL (1.5-3.5); LYMPHOCYTES % (AUTO) 21.9 %; MEAN CORPUSCULAR HEMOGLOBIN 31.4 pg (27.0-31.0); MEAN CORPUSCULAR HGB CONC 33.2 g/dL (32.0-36.0); MEAN CORPUSCULAR VOLUME 94.5 fL (80.0-94.0); MEAN PLATELET VOLUME 10.4 fL (7.4-11.4); MONOCYTES % (AUTO) 10.5 %; NEUTROPHILS # (AUTO) 6.1 10^3/uL (1.5-6.6); NEUTROPHILS % (AUTO) 63.4 %; PLT - PLATELET COUNT 205 10^3/uL (130-450); RED BLOOD COUNT 4.37 10^6/uL (4.70-6.10); RED CELL DISTRIBUTION WIDTH 12.9 % (12.0-15.0); WHITE BLOOD COUNT 9.6 x10^3/uL (4.8-10.8)
[2023-08-06 06:33] LABS: CALCIUM 8.6 mg/dL (8.5-10.3); CREATININE 1.2 mg/dL (0.6-1.3); POTASSIUM 3.3 mmol/L (3.5-4.5)
[2023-08-06] MEDS: metFORMIN 500 MG TABLET PO SCH ×2 (08:20→17:11)
[2023-08-06] MEDS: SODIUM CHLORIDE FLUSH 0.9% 10 ML SYRINGE IVP SCH ×2 (09:06→17:12)
[2023-08-06] MEDS: MULTIVITAMIN W/MINERALS TABLET PO SCH (09:06)
[2023-08-06] MEDS: ASPIRIN EC 81 MG TABLET PO SCH (09:06)
[2023-08-06] MEDS: FAMOTIDINE 20 MG TABLET PO SCH ×2 (09:06→20:27)
[2023-08-06] MEDS: CYANOCOBALAMIN 500 MCG TABLET PO SCH (09:07)
[2023-08-06] MEDS: METOPROLOL TARTRATE 25 MG TABLET PO SCH ×2 (09:07→17:12)
[2023-08-06] MEDS: APIXABAN 5 MG TABLET PO SCH ×2 (09:08→20:26)
[2023-08-06] MEDS: SACCHAROMYCES BOULARDII 250 MG CAPSULE PO SCH ×2 (09:08→17:12)
[2023-08-06] MEDS: QUEtiapine 25 MG TABLET PO SCH (20:26)
[2023-08-06] MEDS: ATORVASTATIN 40 MG TABLET PO SCH (20:27)
--- NOTE | 2023-08-06 20:29 | PROVIDER PROGRESS NOTE ---
Assessment/Plan - Problem List (1) Cerebrovascular accident (CVA) Qualifiers: CVA mechanism: other Qualified Code(s): I63.89 - Other cerebral infarction Assessment/Plan: Assessment/Plan: Patient demonstrates good strength in all 4 extremities. Plan: Echocardiogram performed on August 02, 2023 revealed ejection fraction of 55%. Right ventricular function appears to be normal. There appeared to be no significant valvular heart disease. Continue apixaban and aspirin. Continue atorvastatin Family is now amendable to have the patient go to a rehab center. (2) Poor memory Improved. 1:1 discontinued (3) Diabetic foot ulcer Wound culture grew out pseudomonas. Given patient's mental status has significantly improved, will initiate treatment with Zosyn. Cefepime has been known to cause confusion and patient's therefore it will not be restarted. Discontinue levofloxacin Per General Surgery, no debridement is necessary. Dr Duran, [place] (her cell is [phone]) (4) Osteomyelitis Plan: Treatment changed to Zosyn (5) Pseudomonas aruginosa infection Treatment changed to Zosyn Cont probiotic (6) PVD Stable (7) Afib with RVR Continue metoprolol for rate control Continue apixaban. (8) DM Type 2 Plan: Cont carb controlled diet Cont the Metformin 500 mg BID Cont POC glucose checks ac&hs and hold parameters were placed for not giving the Metformin Cont hypoglycemia protocol (9) Acute urinary retention Resolved - Current Meds Current Meds: Current Medications Generic Name Dose Route Start Last Admin Trade Name Freq PRN Reason Stop Dose Admin Apixaban 5 mg 07/31/23 09:00 08/06/23 09:08 Apixaban 5 Mg Tablet PO 5 mg BID SHON Administration Aspirin 81 mg 07/31/23 09:00 08/06/23 09:06 Aspirin Ec 81 Mg Tablet PO 81 mg DAILY SHON Administration Atorvastatin Calcium 80 mg 07/30/23 21:00 08/05/23 20:56 Atorvastatin 40 Mg Tablet PO 80 mg QPM SHON Administration Cyanocobalamin 500 mcg 08/03/23 17:00 08/06/23 09:07 Cyanocobalamin 500 Mcg Tablet PO 500 mcg DAILY SHON Administration Famotidine 20 mg 07/30/23 21:00 08/06/23 09:06 Famotidine 20 Mg Tablet PO 20 mg BID SHON Administration Piperacillin Sod/Tazobactam 100 mls @ 200 mls/hr 08/05/23 21:00 08/06/23 15:29 Sod 3.375 gm/ Sodium Chloride IV Infused Q6H SHON Infusion Metformin HCl 500 mg 08/01/23 11:10 08/06/23 17:11 Metformin 500 Mg Tablet PO Not Given BIDWM SHON Metoprolol Tartrate 50 mg 08/03/23 08:00 08/06/23 17:12 Metoprolol Tartrate 25 Mg Tablet PO 50 mg BIDWM SHON Administration Multivitamins/Minerals 1 tab 08/03/23 17:00 08/06/23 09:06 Multivitamin W/Minerals Tablet PO 1 tab DAILYWM [facility]ON Administration Quetiapine Fumarate 50 mg 07/31/23 23:00 08/05/23 20:56 Quetiapine 25 Mg Tablet PO 50 mg QPM SHON Administration Saccharomyces Boulardii 250 mg 08/03/23 17:00 08/06/23 17:12 Saccharomyces Boulardii 250 Mg Capsule PO 250 mg BIDWM SHON Administration Sodium Chloride 10 ml 07/29/23 01:00 08/06/23 17:12 Sodium Chloride Flush 0.9% 10 Ml Syringe IVP 10 ml 0100,0900,1700 SHON Administration Sodium Chloride 10 ml 07/28/23 23:35 08/06/23 02:35 Sodium Chloride Flush 0.9% 10 Ml Syringe IVP 10 ml PRN PRN Administration NEEDED PER PROVIDER ORDERS - Lab Result Fish Bone Diagrams: 08/06/23 06:01 08/06/23 06:01 - Additional Planning My Orders: My Active Orders 08/05/23 20:17 Initiate Line Care Protocol [RC] .protocol 08/05/23 21:00 Piperacillin/Tazobactam [Zosyn] 3.375 gm Sodium Chloride 0.9% Minibag [Normal Saline 0.9% Minibag] 100 ml IV Q6H Subjective - Subjective Patient Reports: Other (Alert. Cooperative ambulating throughout the unit with a walker. Denies chest pain, shortness of breath and abdominal pain. No other complaints at this time.) Objective Vital Signs: Vital Signs - 24 hr 08/05/23 08/06/23 08/06/23 23:46 07:50 09:07 Temperature 36.3 C L 36.8 C Heart Rate [ 90 88 Brachial] Respiratory 16 18 Rate Blood Pressure 161/71 H Blood Pressure 161/71 H [Left Brachial artery] Blood Pressure 144/84 H [Right Brachial artery] O2 Saturation 97 95 08/06/23 08/06/23 15:34 17:12 Temperature 36.7 C Heart Rate [ 76 Brachial] Respiratory 18 Rate Blood Pressure 130/65 Blood Pressure 130/65 [Left Brachial artery] Blood Pressure [Right Brachial artery] O2 Saturation 96 Oxygen O2 Source Room air I&O (Last 24 Hrs): Intake and Output Totals x24h 08/04/23 08/05/23 08/06/23 23:59 23:59 23:59 Intake Total 032 139 6422 Balance 506 938 4195 General: Alert, Oriented x3, No acute distress HEENT: Atraumatic, PERRLA, EOMI Neck: Supple, No JVD, No thyromegaly Lymphatic: no adenopathy Neuro: Alert, Non Focal Cardiovascular: Regular rate, Normal S1, Normal S2, No murmurs Respiratory: Chest non-tender, No respiratory distress, Breath sounds nml Abdomen: Normal bowel sounds, Soft, No tenderness Extremities: No clubbing, No cyanosis, No edema Skin: No rashes - Results Results: Laboratory Results WBC 9.6 x10^3/uL (4.8-10.8) 08/06/23 06:01 RBC 4.37 10^6/uL (4.70-6.10) L 08/06/23 06:01 Hgb 13.7 g/dL (14.0-18.0) L 08/06/23 06:01 Hct 41.3 % (42.0-52.0) L 08/06/23 06:01 MCV 94.5 fL (80.0-94.0) H 08/06/23 06:01 MCH 31.4 pg (27.0-31.0) H 08/06/23 06:01 MCHC 33.2 g/dL (32.0-36.0) 08/06/23 06:01 RDW 12.9 % (12.0-15.0) 08/06/23 06:01 Plt Count 205 10^3/uL (130-450) 08/06/23 06:01 MPV 10.4 fL (7.4-11.4) 08/06/23 06:01 Neut # (Auto) 6.1 10^3/uL (1.5-6.6) 08/06/23 06:01 Lymph # (Auto) 2.1 10^3/uL (1.5-3.5) 08/06/23 06:01 [place] # (Auto) 1.0 10^3/uL (0.0-1.0) 08/06/23 06:01 Eos # (Auto) 0.3 10^3/uL (0.0-0.7) 08/06/23 06:01 Baso # (Auto) 0.1 10^3/uL (0.0-0.1) 08/06/23 06:01 Absolute Nucleated RBC 0.00 x10^3/uL 08/06/23 06:01 Nucleated RBC % 0.0 /100WBC 08/06/23 06:01 PT 14.3 secs (9.9-12.6) H 07/29/23 04:24 INR 1.3 (0.8-1.2) H 07/29/23 04:24 APTT 28.5 secs (24.9-33.3) 07/29/23 04:24 VBG pH 7.357 (7.31-7.41) 07/30/23 04:30 Ionized Calcium 1.10 mmol/L (1.15-1.33) L 07/30/23 04:30 Sodium 141 mmol/L (135-145) 08/06/23 06:01 Potassium 3.3 mmol/L (3.5-4.5) L 08/06/23 06:01 Chloride 107 mmol/L (101-111) 08/06/23 06:01 Carbon Dioxide 27 mmol/L (21-32) 08/06/23 06:01 Anion Gap 7.0 (6-13) 08/06/23 06:01 BUN 15 mg/dL (6-20) 08/06/23 06:01 Creatinine 1.2 mg/dL (0.6-1.3) 08/06/23 06:01 Estimated GFR (MDRD) 58 (>89) L 08/06/23 06:01 Glucose 100 mg/dL (74-104) 08/06/23 06:01 Estimat Average Glucose 134 mg/dL (70-100) H 07/29/23 09:30 Hemoglobin A1c % 6.3 % (4.27-6.07) H 07/29/23 09:30 Calcium 8.6 mg/dL (8.5-10.3) 08/06/23 06:01 Phosphorus 3.2 mg/dL (2.5-5.0) 08/01/23 10:53 Magnesium 1.8 mg/dL (1.7-2.3) 08/01/23 10:53 Total Bilirubin 0.7 mg/dL (0.2-1.0) 07/29/23 04:24 AST 13 IU/L (10-42) 07/29/23 04:24 ALT 8 IU/L (10-60) L 07/29/23 04:24 Alkaline Phosphatase 42 IU/L (42-121) 07/29/23 04:24 Lactate Dehydrogenase 143 IU/L (140-271) 07/29/23 04:24 Troponin I High Sens 10.7 ng/L (2.3-19.7) 07/28/23 19:50 C-Reactive Protein 2.2 mg/dL (<0.5) H 08/03/23 07:15 B-Natriuretic Peptide 111 pg/mL (5-100) H 07/30/23 04:30 Total Protein 6.4 g/dL (6.4-8.9) 07/29/23 04:24 Albumin 4.0 g/dL (3.2-5.5) 07/29/23 04:24 Globulin 2.4 g/dL (2.1-4.2) 07/29/23 04:24 Albumin/Globulin Ratio 1.7 (1.0-2.2) 07/29/23 04:24 Triglycerides 97 mg/dL (48-352) 07/30/23 04:30 Cholesterol 161 mg/dL (-200) 07/30/23 04:30 LDL Cholesterol, Calc 110 mg/dL (-129) 07/30/23 04:30 VLDL Cholesterol 19 mg/dL 07/30/23 04:30 HDL Cholesterol 32 mg/dL (60-) L 07/30/23 04:30 LDL/HDL Ratio 3.4 (<3.6) 07/30/23 04:30 Cholesterol/HDL Ratio 5.0 (<5.0) 07/30/23 04:30 Lipase 13 U/L (11-82) 07/28/23 15:17 Vitamin B12 187 pg/mL (180-914) 07/29/23 04:24 Urine Color YELLOW 07/28/23 16:35 Urine Clarity CLEAR (CLEAR) 07/28/23 16:35 Urine pH 7.0 PH (5.0-7.5) 07/28/23 16:35 Ur Specific [place] 1.020 (1.002-1.030) 07/28/23 16:35 Urine Protein TRACE mg/dL (NEGATIVE) 07/28/23 16:35 Urine Glucose (UA) 250 mg/dL (NEGATIVE) H 07/28/23 16:35 Urine Ketones 15 mg/dL (NEGATIVE) H 07/28/23 16:35 Urine Occult Blood NEGATIVE (NEGATIVE) 07/28/23 16:35 Urine Nitrite NEGATIVE (NEGATIVE) 07/28/23 16:35 Urine Bilirubin NEGATIVE (NEGATIVE) 07/28/23 16:35 Urine Urobilinogen 0.2 (NORMAL) E.U./dL (NORMAL) 07/28/23 16:35 Ur Leukocyte Esterase NEGATIVE (NEGATIVE) 07/28/23 16:35 Urine RBC 0-5 /HPF (0-5) 07/28/23 16:35 Urine WBC 0-3 /HPF (0-3) 07/28/23 16:35 Ur Squamous Epith Cells NONE SEEN (<= Few) 07/28/23 16:35 Urine Bacteria Rare /HPF (None Seen) 07/28/23 16:35 Urine Culture Comments NOT INDICATED 07/28/23 16:35 Nasal Influenza B PCR NOT DETECTED 07/28/23 17:20 Nasal Influenza A PCR NOT DETECTED 07/28/23 17:20 Nasal RSV (PCR) NOT DETECTED 07/28/23 17:20 Nasal Screen MRSA (PCR) NEGATIVE (NEGATIVE) 07/29/23 00:30 Nasal SARS-CoV-2 (PCR) NOT DETECTED 07/28/23 17:20 Last Dose Date 07/30/23 07/30/23 14:49 Last Dose Time 0340 07/30/23 14:49 Vancomycin Trough 10.8 ug/mL 07/30/23 14:49 Current Medications - Current Medications Current Medications: Active Medications Acetaminophen (Acetaminophen 325 Mg Tablet) 650 mg PO Q4HR PRN PRN Reason: Pain or Fever > 38C (100.4F) Apixaban (Apixaban 5 Mg Tablet) 5 mg PO BID [facility] Last Admin: 08/06/23 20:26 Dose: 5 mg Aspirin (Aspirin Ec 81 Mg Tablet) 81 mg PO DAILY [facility] Last Admin: 08/06/23 09:06 Dose: 81 mg Atorvastatin Calcium (Atorvastatin 40 Mg Tablet) 80 mg PO QPM [facility] Last Admin: 08/06/23 20:27 Dose: 80 mg Cyanocobalamin (Cyanocobalamin 500 Mcg Tablet) 500 mcg PO DAILY [facility] Last Admin: 08/06/23 09:07 Dose: 500 mcg Famotidine (Famotidine 20 Mg Tablet) 20 mg PO BID [facility] Last Admin: 08/06/23 20:27 Dose: 20 mg Hydralazine HCl (Hydralazine Inj 20 Mg/Ml Vial) 5 mg IVP Q6H PRN PRN Reason: bp > 220/120 Piperacillin Sod/Tazobactam (Sod 3.375 gm/ Sodium Chloride) 100 mls @ 200 mls /hr IV Q6H [facility] Last Infusion: 08/06/23 15:29 Dose: Infused Metformin HCl (Metformin 500 Mg Tablet) 500 mg PO BIDWM [facility] Last Admin: 08/06/23 17:11 Dose: Not Given Metoprolol Tartrate (Metoprolol Tartrate 25 Mg Tablet) 50 mg PO BIDWM [facility] Last Admin: 08/06/23 17:12 Dose: 50 mg Multivitamins/Minerals (Multivitamin W/Minerals Tablet) 1 tab PO DAILYWM [facility] Last Admin: 08/06/23 09:06 Dose: 1 tab Ondansetron HCl (Ondansetron 4 Mg/2 Ml Vial) 4 mg IVP Q6HR PRN PRN Reason: Nausea / Vomiting Potassium Chloride (Potassium Chloride 20 Meq Tablet) 40 meq PO ONCE ONE Stop: 08/06/23 21:01 Quetiapine Fumarate (Quetiapine 25 Mg Tablet) 50 mg PO QPM [facility] Last Admin: 08/06/23 20:26 Dose: 50 mg Saccharomyces Boulardii (Saccharomyces Boulardii 250 Mg Capsule) 250 mg PO BIDWM [facility] Last Admin: 08/06/23 17:12 Dose: 250 mg Sodium Chloride (Sodium Chloride Flush 0.9% 10 Ml Syringe) 10 ml IVP 0100,0900,1700 [facility] Last Admin: 08/06/23 17:12 Dose: 10 ml Sodium Chloride (Sodium Chloride Flush 0.9% 10 Ml Syringe) 10 ml IVP PRN PRN PRN Reason: NEEDED PER PROVIDER ORDERS Last Admin: 08/06/23 02:35 Dose: 10 ml Apixaban [Eliquis] 1 tab PO BID 07/28/23 Doxycycline [Vibramycin] 1 tab PO BIDWM 07/28/23 Gentamicin Sulfate 1 applic TOP DAILY 07/28/23 metFORMIN [Glucophage] 1 tab PO BID 07/28/23 Metoprolol Tartrate [Lopressor] 25 mg PO BID 07/29/23
[2023-08-06] MEDS ORDERED: POTASSIUM CHLORIDE 20 MEQ TABLET PO ONE (21:00)
[2023-08-07] MEDS: SODIUM CHLORIDE FLUSH 0.9% 10 ML SYRINGE IVP SCH ×3 (00:49→03:12)
[2023-08-07] MEDS: PIPERACILLIN/TAZOBACTAM 3.375 GM in SODIUM CHLORIDE 0.9% MINIBAG 100 ML IV SCH ×4 (02:38→21:10)
[2023-08-07] MEDS: SACCHAROMYCES BOULARDII 250 MG CAPSULE PO SCH ×2 (08:10→17:06)
[2023-08-07] MEDS: METOPROLOL TARTRATE 25 MG TABLET PO SCH ×2 (08:10→17:06)
[2023-08-07] MEDS: MULTIVITAMIN W/MINERALS TABLET PO SCH (08:11)
[2023-08-07] MEDS: metFORMIN 500 MG TABLET PO SCH ×3 (08:11→17:06)
[2023-08-07] MEDS: APIXABAN 5 MG TABLET PO SCH ×2 (09:09→21:13)
[2023-08-07] MEDS: ASPIRIN EC 81 MG TABLET PO SCH (09:09)
[2023-08-07] MEDS: CYANOCOBALAMIN 500 MCG TABLET PO SCH (09:09)
[2023-08-07] MEDS: FAMOTIDINE 20 MG TABLET PO SCH ×2 (09:09→21:14)
--- NOTE | 2023-08-07 19:36 | PROVIDER PROGRESS NOTE ---
Assessment/Plan - Problem List (1) Cerebrovascular accident (CVA) Qualifiers: CVA mechanism: other Qualified Code(s): I63.89 - Other cerebral infarction Assessment/Plan: Patient continues to demonstrate good strength in all 4 extremities. Plan: Echocardiogram performed on August 02, 2023 revealed ejection fraction of 55%. Right ventricular function appears to be normal. There appeared to be no significant valvular heart disease. Continue apixaban and aspirin. Continue atorvastatin Family is now amendable to have the patient go to a rehab center.Today patient also expressed she is willing to go to a rehab center. (2) Poor memory Improved. 1:1 discontinued (3) Diabetic foot ulcer Wound culture grew out pseudomonas. Given patient's mental status has significantly improved, will initiate treatment with Zosyn. Cefepime has been known to cause confusion and patient's therefore it will not be restarted. Discontinue levofloxacin Per General Surgery, no debridement is necessary. Dr Duran, [place] (her cell is [phone]) (4) Osteomyelitis Plan: Treatment changed to Zosyn (5) Pseudomonas aruginosa infection Treatment changed to Zosyn Cont probiotic (6) PVD Stable (7) Afib with RVR Continue metoprolol for rate control Continue apixaban. (8) DM Type 2 Plan: Cont carb controlled diet Cont the Metformin 500 mg BID Cont POC glucose checks ac&hs and hold parameters were placed for not giving the Metformin Cont hypoglycemia protocol (9) Acute urinary retention Resolved - Current Meds Current Meds: Current Medications Generic Name Dose Route Start Last Admin Trade Name Freq PRN Reason Stop Dose Admin Apixaban 5 mg 07/31/23 09:00 08/07/23 09:09 Apixaban 5 Mg Tablet PO 5 mg BID SHON Administration Aspirin 81 mg 07/31/23 09:00 08/07/23 09:09 Aspirin Ec 81 Mg Tablet PO 81 mg DAILY SHON Administration Atorvastatin Calcium 80 mg 07/30/23 21:00 08/06/23 20:27 Atorvastatin 40 Mg Tablet PO 80 mg QPM SHON Administration Cyanocobalamin 500 mcg 08/03/23 17:00 08/07/23 09:09 Cyanocobalamin 500 Mcg Tablet PO 500 mcg DAILY [facility]ON Administration Famotidine 20 mg 07/30/23 21:00 08/07/23 09:09 Famotidine 20 Mg Tablet PO 20 mg BID SHON Administration Piperacillin Sod/Tazobactam 100 mls @ 200 mls/hr 08/05/23 21:00 08/07/23 15:19 Sod 3.375 gm/ Sodium Chloride IV Infused Q6H [facility]ON Infusion Metformin HCl 500 mg 08/01/23 11:10 08/07/23 17:06 Metformin 500 Mg Tablet PO 500 mg BIDWM [facility]ON Administration Metoprolol Tartrate 50 mg 08/03/23 08:00 08/07/23 17:06 Metoprolol Tartrate 25 Mg Tablet PO 50 mg BIDWM SHON Administration Multivitamins/Minerals 1 tab 08/03/23 17:00 08/07/23 08:11 Multivitamin W/Minerals Tablet PO 1 tab DAILYWM [facility]ON Administration Quetiapine Fumarate 50 mg 07/31/23 23:00 08/06/23 20:26 Quetiapine 25 Mg Tablet PO 50 mg QPM SHON Administration Saccharomyces Boulardii 250 mg 08/03/23 17:00 08/07/23 17:06 Saccharomyces Boulardii 250 Mg Capsule PO 250 mg BIDWM SHON Administration Sodium Chloride 10 ml 07/29/23 01:00 08/07/23 03:12 Sodium Chloride Flush 0.9% 10 Ml Syringe IVP 10 ml 0100,0900,1700 [facility] Administration Sodium Chloride 10 ml 07/28/23 23:35 08/06/23 21:15 Sodium Chloride Flush 0.9% 10 Ml Syringe IVP 10 ml PRN PRN Administration NEEDED PER PROVIDER ORDERS - Lab Result Fish Bone Diagrams: 08/06/23 06:01 08/06/23 06:01 - Additional Planning My Orders: My Active Orders 08/07/23 20:00 Potassium Chloride Oral Soln [Potassium Chloride] 40 meq PO ONCE Subjective - Subjective Patient Reports: Other (Alert. Cooperative. He has no other complaints at this time.) Objective Vital Signs: Vital Signs - 24 hr 08/07/23 08/07/23 08/07/23 00:50 07:45 08:10 Temperature 36.7 C 36.6 C Heart Rate [ 90 90 Brachial] Respiratory 16 18 Rate Blood Pressure 151/84 H Blood Pressure 154/99 H 151/84 H [Right Brachial artery] O2 Saturation 96 93 08/07/23 08/07/23 15:31 17:06 Temperature 36.7 C Heart Rate [ 90 Brachial] Respiratory 17 Rate Blood Pressure 115/98 H Blood Pressure 134/85 H [Right Brachial artery] O2 Saturation 96 Oxygen O2 Source Room air I&O (Last 24 Hrs): Intake and Output Totals x24h 08/05/23 08/06/23 08/07/23 23:59 23:59 23:59 Intake Total 420 1740 1170 Balance 420 1740 1170 General: Alert, Oriented x3, Cooperative, No acute distress HEENT: Atraumatic, PERRLA, EOMI Neck: Supple, No JVD, No thyromegaly Lymphatic: no adenopathy, axilla node tender (R) Neuro: Non Focal Cardiovascular: Regular rate, Normal S1, Normal S2, No murmurs Respiratory: Chest non-tender, No respiratory distress, Breath sounds nml Abdomen: Normal bowel sounds, Soft, No tenderness Genitourinary: Normal Inspection Extremities: No clubbing, No cyanosis, No edema Skin: No rashes - Results Results: Laboratory Results WBC 9.6 x10^3/uL (4.8-10.8) 08/06/23 06:01 RBC 4.37 10^6/uL (4.70-6.10) L 08/06/23 06:01 Hgb 13.7 g/dL (14.0-18.0) L 08/06/23 06:01 Hct 41.3 % (42.0-52.0) L 08/06/23 06:01 MCV 94.5 fL (80.0-94.0) H 08/06/23 06:01 MCH 31.4 pg (27.0-31.0) H 08/06/23 06:01 MCHC 33.2 g/dL (32.0-36.0) 08/06/23 06:01 RDW 12.9 % (12.0-15.0) 08/06/23 06:01 Plt Count 205 10^3/uL (130-450) 08/06/23 06:01 MPV 10.4 fL (7.4-11.4) 08/06/23 06:01 Neut # (Auto) 6.1 10^3/uL (1.5-6.6) 08/06/23 06:01 Lymph # (Auto) 2.1 10^3/uL (1.5-3.5) 08/06/23 06:01 [place] # (Auto) 1.0 10^3/uL (0.0-1.0) 08/06/23 06:01 Eos # (Auto) 0.3 10^3/uL (0.0-0.7) 08/06/23 06:01 Baso # (Auto) 0.1 10^3/uL (0.0-0.1) 08/06/23 06:01 Absolute Nucleated RBC 0.00 x10^3/uL 08/06/23 06:01 Nucleated RBC % 0.0 /100WBC 08/06/23 06:01 PT 14.3 secs (9.9-12.6) H 07/29/23 04:24 INR 1.3 (0.8-1.2) H 07/29/23 04:24 APTT 28.5 secs (24.9-33.3) 07/29/23 04:24 VBG pH 7.357 (7.31-7.41) 07/30/23 04:30 Ionized Calcium 1.10 mmol/L (1.15-1.33) L 07/30/23 04:30 Sodium 141 mmol/L (135-145) 08/06/23 06:01 Potassium 3.3 mmol/L (3.5-4.5) L 08/06/23 06:01 Chloride 107 mmol/L (101-111) 08/06/23 06:01 Carbon Dioxide 27 mmol/L (21-32) 08/06/23 06:01 Anion Gap 7.0 (6-13) 08/06/23 06:01 BUN 15 mg/dL (6-20) 08/06/23 06:01 Creatinine 1.2 mg/dL (0.6-1.3) 08/06/23 06:01 Estimated GFR (MDRD) 58 (>89) L 08/06/23 06:01 Glucose 100 mg/dL (74-104) 08/06/23 06:01 Estimat Average Glucose 134 mg/dL (70-100) H 07/29/23 09:30 Hemoglobin A1c % 6.3 % (4.27-6.07) H 07/29/23 09:30 Calcium 8.6 mg/dL (8.5-10.3) 08/06/23 06:01 Phosphorus 3.2 mg/dL (2.5-5.0) 08/01/23 10:53 Magnesium 1.8 mg/dL (1.7-2.3) 08/01/23 10:53 Total Bilirubin 0.7 mg/dL (0.2-1.0) 07/29/23 04:24 AST 13 IU/L (10-42) 07/29/23 04:24 ALT 8 IU/L (10-60) L 07/29/23 04:24 Alkaline Phosphatase 42 IU/L (42-121) 07/29/23 04:24 Lactate Dehydrogenase 143 IU/L (140-271) 07/29/23 04:24 Troponin I High Sens 10.7 ng/L (2.3-19.7) 07/28/23 19:50 C-Reactive Protein 2.2 mg/dL (<0.5) H 08/03/23 07:15 B-Natriuretic Peptide 111 pg/mL (5-100) H 07/30/23 04:30 Total Protein 6.4 g/dL (6.4-8.9) 07/29/23 04:24 Albumin 4.0 g/dL (3.2-5.5) 07/29/23 04:24 Globulin 2.4 g/dL (2.1-4.2) 07/29/23 04:24 Albumin/Globulin Ratio 1.7 (1.0-2.2) 07/29/23 04:24 Triglycerides 97 mg/dL (48-352) 07/30/23 04:30 Cholesterol 161 mg/dL (-200) 07/30/23 04:30 LDL Cholesterol, Calc 110 mg/dL (-129) 07/30/23 04:30 VLDL Cholesterol 19 mg/dL 07/30/23 04:30 HDL Cholesterol 32 mg/dL (60-) L 07/30/23 04:30 LDL/HDL Ratio 3.4 (<3.6) 07/30/23 04:30 Cholesterol/HDL Ratio 5.0 (<5.0) 07/30/23 04:30 Lipase 13 U/L (11-82) 07/28/23 15:17 Vitamin B12 187 pg/mL (180-914) 07/29/23 04:24 Urine Color YELLOW 07/28/23 16:35 Urine Clarity CLEAR (CLEAR) 07/28/23 16:35 Urine pH 7.0 PH (5.0-7.5) 07/28/23 16:35 Ur Specific [place] 1.020 (1.002-1.030) 07/28/23 16:35 Urine Protein TRACE mg/dL (NEGATIVE) 07/28/23 16:35 Urine Glucose (UA) 250 mg/dL (NEGATIVE) H 07/28/23 16:35 Urine Ketones 15 mg/dL (NEGATIVE) H 07/28/23 16:35 Urine Occult Blood NEGATIVE (NEGATIVE) 07/28/23 16:35 Urine Nitrite NEGATIVE (NEGATIVE) 07/28/23 16:35 Urine Bilirubin NEGATIVE (NEGATIVE) 07/28/23 16:35 Urine Urobilinogen 0.2 (NORMAL) E.U./dL (NORMAL) 07/28/23 16:35 Ur Leukocyte Esterase NEGATIVE (NEGATIVE) 07/28/23 16:35 Urine RBC 0-5 /HPF (0-5) 07/28/23 16:35 Urine WBC 0-3 /HPF (0-3) 07/28/23 16:35 Ur Squamous Epith Cells NONE SEEN (<= Few) 07/28/23 16:35 Urine Bacteria Rare /HPF (None Seen) 07/28/23 16:35 Urine Culture Comments NOT INDICATED 07/28/23 16:35 Nasal Influenza B PCR NOT DETECTED 07/28/23 17:20 Nasal Influenza A PCR NOT DETECTED 07/28/23 17:20 Nasal RSV (PCR) NOT DETECTED 07/28/23 17:20 Nasal Screen MRSA (PCR) NEGATIVE (NEGATIVE) 07/29/23 00:30 Nasal SARS-CoV-2 (PCR) NOT DETECTED 07/28/23 17:20 Last Dose Date 07/30/23 07/30/23 14:49 Last Dose Time 0340 07/30/23 14:49 Vancomycin Trough 10.8 ug/mL 07/30/23 14:49 ABX Reporting Has patient been on IV antibiotics over the past 48 hours?: Yes Current Medications - Current Medications Current Medications: Active Medications Acetaminophen (Acetaminophen 325 Mg Tablet) 650 mg PO Q4HR PRN PRN Reason: Pain or Fever > 38C (100.4F) Apixaban (Apixaban 5 Mg Tablet) 5 mg PO BID [facility] Last Admin: 08/07/23 09:09 Dose: 5 mg Aspirin (Aspirin Ec 81 Mg Tablet) 81 mg PO DAILY [facility] Last Admin: 08/07/23 09:09 Dose: 81 mg Atorvastatin Calcium (Atorvastatin 40 Mg Tablet) 80 mg PO QPM [facility] Last Admin: 08/06/23 20:27 Dose: 80 mg Cyanocobalamin (Cyanocobalamin 500 Mcg Tablet) 500 mcg PO DAILY [facility] Last Admin: 08/07/23 09:09 Dose: 500 mcg Famotidine (Famotidine 20 Mg Tablet) 20 mg PO BID [facility] Last Admin: 08/07/23 09:09 Dose: 20 mg Hydralazine HCl (Hydralazine Inj 20 Mg/Ml Vial) 5 mg IVP Q6H PRN PRN Reason: bp > 220/120 Piperacillin Sod/Tazobactam (Sod 3.375 gm/ Sodium Chloride) 100 mls @ 200 mls/hr IV Q6H [facility] Last Infusion: 08/07/23 15:19 Dose: Infused Metformin HCl (Metformin 500 Mg Tablet) 500 mg PO BIDWM [facility] Last Admin: 08/07/23 17:06 Dose: 500 mg Metoprolol Tartrate (Metoprolol Tartrate 25 Mg Tablet) 50 mg PO BIDWM [facility] Last Admin: 08/07/23 17:06 Dose: 50 mg Multivitamins/Minerals (Multivitamin W/Minerals Tablet) 1 tab PO DAILYWM [facility] Last Admin: 08/07/23 08:11 Dose: 1 tab Ondansetron HCl (Ondansetron 4 Mg/2 Ml Vial) 4 mg IVP Q6HR PRN PRN Reason: Nausea / Vomiting Potassium Chloride (Potassium Chloride 20 Meq/15 Ml Udc) 40 meq PO ONCE [facility] Stop: 08/08/23 19:59 Quetiapine Fumarate (Quetiapine 25 Mg Tablet) 50 mg PO QPM [facility] Last Admin: 08/06/23 20:26 Dose: 50 mg Saccharomyces Boulardii (Saccharomyces Boulardii 250 Mg Capsule) 250 mg PO BIDWM [facility] Last Admin: 08/07/23 17:06 Dose: 250 mg Sodium Chloride (Sodium Chloride Flush 0.9% 10 Ml Syringe) 10 ml IVP 0100,0900,1700 [facility] Last Admin: 08/07/23 03:12 Dose: 10 ml Sodium Chloride (Sodium Chloride Flush 0.9% 10 Ml Syringe) 10 ml IVP PRN PRN PRN Reason: NEEDED PER PROVIDER ORDERS Last Admin: 08/06/23 21:15 Dose: 10 ml Apixaban [Eliquis] 1 tab PO BID 07/28/23 Doxycycline [Vibramycin] 1 tab PO BIDWM 07/28/23 Gentamicin Sulfate 1 applic TOP DAILY 07/28/23 metFORMIN [Glucophage] 1 tab PO BID 07/28/23 Metoprolol Tartrate [Lopressor] 25 mg PO BID 07/29/23
[2023-08-07] MEDS ORDERED: POTASSIUM CHLORIDE 20 MEQ/15 ML UDC PO SCH (20:00)
[2023-08-07] MEDS: SODIUM CHLORIDE FLUSH 0.9% 10 ML SYRINGE IVP PRN (21:12)
[2023-08-07] MEDS: QUEtiapine 25 MG TABLET PO SCH (21:13)
[2023-08-07] MEDS: ATORVASTATIN 40 MG TABLET PO SCH (21:13)
[2023-08-08] MEDS: SODIUM CHLORIDE FLUSH 0.9% 10 ML SYRINGE IVP SCH ×4 (01:11→23:36)
[2023-08-08] MEDS: PIPERACILLIN/TAZOBACTAM 3.375 GM in SODIUM CHLORIDE 0.9% MINIBAG 100 ML IV SCH ×4 (02:40→21:40)
[2023-08-08 08:23] LABS: CALCIUM 8.8 mg/dL (8.5-10.3); CREATININE 1.1 mg/dL (0.6-1.3); CRP - C-REACTIVE PROTEIN 0.5 mg/dL (<0.5); POTASSIUM 3.8 mmol/L (3.5-4.5)
[2023-08-08] MEDS: metFORMIN 500 MG TABLET PO SCH ×2 (08:28→16:38)
[2023-08-08] MEDS: ASPIRIN EC 81 MG TABLET PO SCH (10:34)
[2023-08-08] MEDS: FAMOTIDINE 20 MG TABLET PO SCH ×2 (10:34→20:49)
[2023-08-08] MEDS: METOPROLOL TARTRATE 25 MG TABLET PO SCH ×2 (10:34→17:25)
[2023-08-08] MEDS: SACCHAROMYCES BOULARDII 250 MG CAPSULE PO SCH ×2 (10:35→17:25)
[2023-08-08] MEDS: APIXABAN 5 MG TABLET PO SCH ×2 (10:35→20:49)
[2023-08-08] MEDS: CYANOCOBALAMIN 500 MCG TABLET PO SCH (10:35)
[2023-08-08] MEDS: MULTIVITAMIN W/MINERALS TABLET PO SCH (10:35)
--- NOTE | 2023-08-08 11:28 | Discharge Plan ---
"Discharge Plan for SNF / [facility] - Discharge Plan And Transition Orders Problem Reviewed?: Yes Condition: Good Allergies and Adverse Reactions: Allergies Allergy/AdvReac Type Severity Reaction Status Date / Time No Known Drug Allergies Allergy Verified 07/28/23 15:26 Health Concerns: Elijah Wheatley is a 82-year-old man admitted to [facility] on July 29, 2023 with complaints of left-sided weakness and right facial droop. While the patient was in the emergency room, a CT scan of the head was performed on July 28, 2023 that was highly suspicious for a subacute infarction involving the right temporal lobe. A brain MRI was performed on July 28, 2023 which revealed a large right temporal lobe infarct without hemorrhage. Echocardiogram performed on August 02, 2023 revealed an ejection fraction of 55%. Right ventricular function appears to be normal. There appeared to be no significant valvular heart disease. Treatment was initiated for osteomyelitis of the first metatarsal head of the left foot. Wound culture grew out Pseudomonas that was sensitive to Zosyn. Patient developed delirium shortly after his admission and treatment was initiated with levofloxacin 750 mg daily for his osteomyelitis because the patient kept pulling out his IV. Once his delirium cleared, treatment was initiated with Zosyn 3.375 g every 6 hours. Patient has been treated with Zosyn for 3 days. Patient's delirium markedly improved on August 05, 2022. Patient's left-sided weakness and left-sided neglect has nearly resolved resolved. He is currently ambulating with a walker. Patient is now stable for transfer to a nursing facility for rehabilitation. Plan of Treatment: Rehabilitation in a nursing facility Patient to continue Zosyn for his osteomyelitis during his stay at the [facility] facility If there are questions with regards to his Zosyn, please contact Dr. Duran at the [facility]. Please obtain a CBC every Tuesday and a CMP every . Please fax the results to Dr. Duran using the following fax #[phone] Care Goals: Goal is to return to independent functioning. Assessment: (1) Cerebrovascular accident (CVA) Qualifiers: CVA mechanism: other Qualified Code(s): I63.89 - Other cerebral infarction Assessment/Plan: Patient continues to demonstrate good strength in all 4 extremities. Echocardiogram performed on August 02, 2023 revealed ejection fraction of 55%. Right ventricular function appears to be normal. There appeared to be no significant valvular heart disease. Continue apixaban and aspirin. Continue atorvastatin (2) Poor memory Resolved (3) Diabetic foot ulcer Wound culture grew out pseudomonas. Treatment with Zosyn.Plan is treatment with 3.375 g every 8 hours with continuous dosing for 4 hours each time. Please obtain CBC every Tuesday and CMP every . He has an appointment with Dr. Duran on August [address] Duran, [place] (her cell is [phone]) Per General Surgery, no debridement is necessary. (4) Osteomyelitis Plan: Continue Zosyn. (5) Pseudomonas aruginosa infection Treatment changed to Zosyn Continue probiotic (6) PVD Stable (7) Afib with RVR Continue metoprolol for rate control Continue apixaban. (8) DM Type 2 Plan: Cont carb controlled diet Cont the Metformin 500 mg BID (9) Acute urinary retention Resolved - SNF / SENIOR CARE Transition Orders Admit to (Facility): [facility] Discharge Diagnosis: 1. Cerebrovascular accident 2. Memory difficulties (resolved) 3. Diabetic foot ulcer 4. Osteomyelitis 5. Pseudomonas aeruginosa infection of foot 6. Peripheral vascular disease 7. Atrial fibrillation 8. Diabetes mellitus type 2 9. Acute urinary retention (resolved) Medicare Certification Statement: I certify that [facility] care is medically necessary on a continuing basis for any of the conditions for which she/he is receiving care during hospitalization. Notify PCP of admission and forward orders to primary provider for signature. Weight on admission and: Weekly Other Notification Orders: Call PCP immediately if patient develops dyspnea, chest pain/tightness or edema. House Bowel Program: Yes Additional Bowel Program Orders: If no BM after 2 days, nurse may give M.O.M. 30ml PO PRN and/or ducolax Supp 1 [place] and/or MARGIE 250mg P.O., and/or senna 1-2 tabs PO. On day 3 nurse may give repeat above order until residents constipation is resolved. Annual Influenza Vaccine (between Apr 01 and October 29): Yes Two-step PPD per [facility] [phone] or approved exception documents: Yes Medication Orders: PLEASE REFER TO THE DISCHARGE MEDICATION LIST. Insulin Orders?: No - Diet Type: No added sugar Texture: Regular Liquids: Thin - Therapies | Activity Therapy: Evaluation | Treat if indicated: PT, OT Rehabilitation Potential: Return to independent living Activity: Activity as Tolerated Weight Bearing: Full Weight Assistance Devices: Walker Follow Up: Continue treatment with sliding scale insulin and glargine. Follow-up with primary care provider Dr. Phuc Zhang. Mr. Wheatley has an appointment with Dr. Duran of infectious disease at the [facility] on August 19 at 10 AM"
--- NOTE | 2023-08-08 11:29 | DISCHARGE SUMMARY ---
Discharge Summary Condition at Discharge: Good - ALLERGIES Allergies/Adverse Reactions: Allergies Allergy/AdvReac Type Severity Reaction Status Date / Time No Known Drug Allergies Allergy Verified 07/28/23 15:26 - MEDICATIONS Home Medications: Ambulatory Orders Medication Instructions Recorded Confirmed Apixaban [Eliquis] 1 tab PO BID 07/28/23 07/29/23 Doxycycline [Vibramycin] 1 tab PO BIDWM 07/28/23 07/29/23 Gentamicin Sulfate 1 applic TOP DAILY 07/28/23 07/28/23 metFORMIN [Glucophage] 1 tab PO BID 07/28/23 07/28/23 Metoprolol Tartrate [Lopressor] 25 mg PO BID 07/29/23 07/29/23 - LABS Result Diagrams: 08/06/23 06:01 08/08/23 07:59
--- NOTE | 2023-08-08 15:25 | XRAY Report ---
PROCEDURE: Chest for Line Placement INDICATIONS: new PICC right arm TECHNIQUE: One view of the chest was acquired. COMPARISON: Chest radiograph 07/20/2023. FINDINGS: Surgical changes and devices: Interval placement of right upper extremity PICC with distal tip overl jaimee the superior SVC. Lungs and pleura: No pleural effusions or pneumothorax. Lung volumes have slightly increased. Mildly decreased diffuse interstitial prominence. Mediastinum: Mediastinal contours appear normal. Heart size is upper limits of normal. Aortic arch is calcified indicating atherosclerosis Bones and chest wall: No suspicious bony lesions. Overlying soft tissues appear unremarkable. IMPRESSION: Interval placement of right upper cavity PICC with tip overlying the superior SVC. Compared to prior radiograph 07/20/2023, lung volumes have slightly increased with decreased intersti tial prominence. Reviewed by: Carolyn Eng MD on 08/08/2023 3:24 PM PST Approved by: Carolyn Eng MD on 08/08/2023 3:24 PM PST Station ID: [id number]
--- NOTE | 2023-08-08 16:01 | ANESTHESIA PROCEDURE NOTE ---
Anesth Central Line Template - Central Line Central Line Preparation: Consent Obtained, Time out completed, Ultrasound used, Sterile prep and drape Central line location: Right Cephalic Central line type: PICC Single Lumen (trimmed at 52 cm, 2 exposed, sutured in place) Central line catheter tip site resides: Superior vena cava (SVC) Central line aftercare: Secured (sutured), Pt tolerated well
[2023-08-08] MEDS: ATORVASTATIN 40 MG TABLET PO SCH (20:49)
[2023-08-08] MEDS: QUEtiapine 25 MG TABLET PO SCH (20:49)
--- NOTE | 2023-08-08 22:01 | PROVIDER PROGRESS NOTE ---
Assessment/Plan - Problem List (1) Cerebrovascular accident (CVA) Qualifiers: CVA mechanism: other Qualified Code(s): I63.89 - Other cerebral infarction Assessment/Plan: Patient continues to demonstrate good strength in all 4 extremities. Plan: Echocardiogram performed on August 02, 2023 revealed ejection fraction of 55%. Right ventricular function appears to be normal. There appeared to be no significant valvular heart disease. Continue apixaban and aspirin. Continue atorvastatin Patient to transport to intermediate on August 09, 2023 (2) Poor memory Improved. 1:1 discontinued (3) Diabetic foot ulcer Wound culture grew out pseudomonas. Per General Surgery, no debridement is necessary. Treatment discussed with Dr. Duran. Patient to receive Zosyn 3.375 g every 8 hours and each dose should be given over 4 hours continuously. Please check a CBC every Tuesday and a CMP every . He is faxing to Dr. Duran's clinic at [phone]. Patient had a PICC line placed today. Dr Duran, [place] (her cell is [phone]) (4) Osteomyelitis Plan: Treatment changed to Zosyn (5) Pseudomonas aruginosa infection Treatment changed to Zosyn Cont probiotic (6) PVD Stable (7) Afib with RVR Continue metoprolol for rate control Continue apixaban. (8) DM Type 2 Plan: Cont carb controlled diet Cont the Metformin 500 mg BID Cont POC glucose checks ac&hs and hold parameters were placed for not giving the Metformin Cont hypoglycemia protocol (9) Acute urinary retention Resolved - Current Meds Current Meds: Current Medications Generic Name Dose Route Start Last Admin Trade Name Michael PRN Reason Stop Dose Admin Apixaban 5 mg 07/31/23 09:00 08/08/23 20:49 Apixaban 5 Mg Tablet PO 5 mg BID SHON Administration Aspirin 81 mg 07/31/23 09:00 08/08/23 10:34 Aspirin Ec 81 Mg Tablet PO 81 mg DAILY SHON Administration Atorvastatin Calcium 80 mg 07/30/23 21:00 08/08/23 20:49 Atorvastatin 40 Mg Tablet PO 80 mg QPM SHON Administration Cyanocobalamin 500 mcg 08/03/23 17:00 08/08/23 10:35 Cyanocobalamin 500 Mcg Tablet PO 500 mcg DAILY SHON Administration Famotidine 20 mg 07/30/23 21:00 08/08/23 20:49 Famotidine 20 Mg Tablet PO 20 mg BID SHON Administration Piperacillin Sod/Tazobactam 100 mls @ 200 mls/hr 08/08/23 17:00 08/08/23 21:40 Sod 3.375 gm/ Sodium Chloride IV 200 mls/hr Q8HR SHON Administration Metformin HCl 500 mg 08/01/23 11:10 08/08/23 16:38 Metformin 500 Mg Tablet PO Not Given BIDWM SHON Metoprolol Tartrate 50 mg 08/03/23 08:00 08/08/23 17:25 Metoprolol Tartrate 25 Mg Tablet PO 50 mg BIDWM SHON Administration Multivitamins/Minerals 1 tab 08/03/23 17:00 08/08/23 10:35 Multivitamin W/Minerals Tablet PO 1 tab DAILYWM SHON Administration Quetiapine Fumarate 50 mg 07/31/23 23:00 08/08/23 20:49 Quetiapine 25 Mg Tablet PO 50 mg QPM SHON Administration Saccharomyces Boulardii 250 mg 08/03/23 17:00 08/08/23 17:25 Saccharomyces Boulardii 250 Mg Capsule PO 250 mg BIDWM SHON Administration Sodium Chloride 10 ml 07/29/23 01:00 08/08/23 17:26 Sodium Chloride Flush 0.9% 10 Ml Syringe IVP 10 ml 0100,0900,1700 SHON Administration Sodium Chloride 10 ml 07/28/23 23:35 08/07/23 21:12 Sodium Chloride Flush 0.9% 10 Ml Syringe IVP 10 ml PRN PRN Administration NEEDED PER PROVIDER ORDERS - Lab Result Fish Bone Diagrams: 08/06/23 06:01 08/08/23 07:59 - Additional Planning My Orders: My Active Orders 08/08/23 11:27 PICC Line Care [RC] Q4H PICC Line Insert [RC] .ONCE 08/08/23 17:00 Piperacillin/Tazobactam [Zosyn] 3.375 gm Sodium Chloride 0.9% Minibag [Normal Saline 0.9% Minibag] 100 ml IV Q8HR Subjective - Subjective Patient Reports: Other (Alert. Following commands no specific complaints at this time.) Objective Vital Signs: Vital Signs - 24 hr 08/07/23 08/08/23 08/08/23 22:27 06:00 10:34 Temperature 36.6 C 37.3 C Heart Rate [ 80 101 H Brachial] Respiratory 18 16 Rate Blood Pressure 126/80 Blood Pressure 172/111 H 126/80 [Right Brachial artery] O2 Saturation 93 93 08/08/23 16:08 Temperature 36.7 C Heart Rate [ 91 Brachial] Respiratory 20 Rate Blood Pressure Blood Pressure 154/84 H [Right Brachial artery] O2 Saturation 95 Oxygen O2 Source Room air I&O (Last 24 Hrs): Intake and Output Totals x24h 08/06/23 08/07/23 08/08/23 23:59 23:59 23:59 Intake Total 1739 1969 1037 Balance 1741969 1038 General: Alert, Oriented x3, Cooperative, No acute distress HEENT: Atraumatic, PERRLA, EOMI Neck: Supple, No JVD, No thyromegaly Lymphatic: no adenopathy Neuro: Alert, Non Focal Cardiovascular: Regular rate, Normal S1, Normal S2, No murmurs Respiratory: Chest non-tender, No respiratory distress, Wheezes, Rhonchi Abdomen: Normal bowel sounds Extremities: No clubbing, No cyanosis, No edema Skin: No rashes - Results Results: Laboratory Results WBC 9.6 x10^3/uL (4.8-10.8) 08/06/23 06:01 RBC 4.37 10^6/uL (4.70-6.10) L 08/06/23 06:01 Hgb 13.7 g/dL (14.0-18.0) L 08/06/23 06:01 Hct 41.3 % (42.0-52.0) L 08/06/23 06:01 MCV 94.5 fL (80.0-94.0) H 08/06/23 06:01 MCH 31.4 pg (27.0-31.0) H 08/06/23 06:01 MCHC 33.2 g/dL (32.0-36.0) 08/06/23 06:01 RDW 12.9 % (12.0-15.0) 08/06/23 06:01 Plt Count 205 10^3/uL (130-450) 08/06/23 06:01 MPV 10.4 fL (7.4-11.4) 08/06/23 06:01 Neut # (Auto) 6.1 10^3/uL (1.5-6.6) 08/06/23 06:01 Lymph # (Auto) 2.1 10^3/uL (1.5-3.5) 08/06/23 06:01 Charles # (Auto) 1.0 10^3/uL (0.0-1.0) 08/06/23 06:01 Eos # (Auto) 0.3 10^3/uL (0.0-0.7) 08/06/23 06:01 Baso # (Auto) 0.1 10^3/uL (0.0-0.1) 08/06/23 06:01 Absolute Nucleated RBC 0.00 x10^3/uL 08/06/23 06:01 Nucleated RBC % 0.0 /100WBC 08/06/23 06:01 PT 14.3 secs (9.9-12.6) H 07/29/23 04:24 INR 1.3 (0.8-1.2) H 07/29/23 04:24 APTT 28.5 secs (24.9-33.3) 07/29/23 04:24 VBG pH 7.357 (7.31-7.41) 07/30/23 04:30 Ionized Calcium 1.10 mmol/L (1.15-1.33) L 07/30/23 04:30 Sodium 139 mmol/L (135-145) 08/08/23 07:59 Potassium 3.8 mmol/L (3.5-4.5) 08/08/23 07:59 Chloride 107 mmol/L (101-111) 08/08/23 07:59 Carbon Dioxide 26 mmol/L (21-32) 08/08/23 07:59 Anion Gap 6.0 (6-13) 08/08/23 07:59 BUN 18 mg/dL (6-20) 08/08/23 07:59 Creatinine 1.1 mg/dL (0.6-1.3) 08/08/23 07:59 Estimated GFR (MDRD) 64 (>89) L 08/08/23 07:59 Glucose 108 mg/dL (74-104) H 08/08/23 07:59 Estimat Average Glucose 134 mg/dL (70-100) H 07/29/23 09:30 Hemoglobin A1c % 6.3 % (4.27-6.07) H 07/29/23 09:30 Calcium 8.8 mg/dL (8.5-10.3) 08/08/23 07:59 Phosphorus 3.2 mg/dL (2.5-5.0) 08/01/23 10:53 Magnesium 1.8 mg/dL (1.7-2.3) 08/01/23 10:53 Total Bilirubin 0.7 mg/dL (0.2-1.0) 07/29/23 04:24 AST 13 IU/L (10-42) 07/29/23 04:24 ALT 8 IU/L (10-60) L 07/29/23 04:24 Alkaline Phosphatase 42 IU/L (42-121) 07/29/23 04:24 Lactate Dehydrogenase 143 IU/L (140-271) 07/29/23 04:24 Troponin I High Sens 10.7 ng/L (2.3-19.7) 07/28/23 19:50 C-Reactive Protein 0.5 mg/dL (<0.5) 08/08/23 07:59 B-Natriuretic Peptide 111 pg/mL (5-100) H 07/30/23 04:30 Total Protein 6.4 g/dL (6.4-8.9) 07/29/23 04:24 Albumin 4.0 g/dL (3.2-5.5) 07/29/23 04:24 Globulin 2.4 g/dL (2.1-4.2) 07/29/23 04:24 Albumin/Globulin Ratio 1.7 (1.0-2.2) 07/29/23 04:24 Triglycerides 97 mg/dL (48-352) 07/30/23 04:30 Cholesterol 161 mg/dL (-200) 07/30/23 04:30 LDL Cholesterol, Calc 110 mg/dL (-129) 07/30/23 04:30 VLDL Cholesterol 19 mg/dL 07/30/23 04:30 HDL Cholesterol 32 mg/dL (60-) L 07/30/23 04:30 LDL/HDL Ratio 3.4 (<3.6) 07/30/23 04:30 Cholesterol/HDL Ratio 5.0 (<5.0) 07/30/23 04:30 Lipase 13 U/L (11-82) 07/28/23 15:17 Vitamin B12 187 pg/mL (180-914) 07/29/23 04:24 Urine Color YELLOW 07/28/23 16:35 Urine Clarity CLEAR (CLEAR) 07/28/23 16:35 Urine pH 7.0 PH (5.0-7.5) 07/28/23 16:35 Ur Specific [place] 1.020 (1.002-1.030) 07/28/23 16:35 Urine Protein TRACE mg/dL (NEGATIVE) 07/28/23 16:35 Urine Glucose (UA) 250 mg/dL (NEGATIVE) H 07/28/23 16:35 Urine Ketones 15 mg/dL (NEGATIVE) H 07/28/23 16:35 Urine Occult Blood NEGATIVE (NEGATIVE) 07/28/23 16:35 Urine Nitrite NEGATIVE (NEGATIVE) 07/28/23 16:35 Urine Bilirubin NEGATIVE (NEGATIVE) 07/28/23 16:35 Urine Urobilinogen 0.2 (NORMAL) E.U./dL (NORMAL) 07/28/23 16:35 Ur Leukocyte Esterase NEGATIVE (NEGATIVE) 07/28/23 16:35 Urine RBC 0-5 /HPF (0-5) 07/28/23 16:35 Urine WBC 0-3 /HPF (0-3) 07/28/23 16:35 Ur Squamous Epith Cells NONE SEEN (<= Few) 07/28/23 16:35 Urine Bacteria Rare /HPF (None Seen) 07/28/23 16:35 Urine Culture Comments NOT INDICATED 07/28/23 16:35 Nasal Influenza B PCR NOT DETECTED 07/28/23 17:20 Nasal Influenza A PCR NOT DETECTED 07/28/23 17:20 Nasal RSV (PCR) NOT DETECTED 07/28/23 17:20 Nasal Screen MRSA (PCR) NEGATIVE (NEGATIVE) 07/29/23 00:30 Nasal SARS-CoV-2 (PCR) NOT DETECTED 07/28/23 17:20 Last Dose Date 07/30/23 07/30/23 14:49 Last Dose Time 0340 07/30/23 14:49 Vancomycin Trough 10.8 ug/mL 07/30/23 14:49 ABX Reporting Has patient been on IV antibiotics over the past 48 hours?: Yes Current Medications - Current Medications Current Medications: Active Medications Acetaminophen (Acetaminophen 325 Mg Tablet) 650 mg PO Q4HR PRN PRN Reason: Pain or Fever > 38C (100.4F) Apixaban (Apixaban 5 Mg Tablet) 5 mg PO BID [facility] Last Admin: 08/08/23 20:49 Dose: 5 mg Aspirin (Aspirin Ec 81 Mg Tablet) 81 mg PO DAILY [facility] Last Admin: 08/08/23 10:34 Dose: 81 mg Atorvastatin Calcium (Atorvastatin 40 Mg Tablet) 80 mg PO QPM [facility] Last Admin: 08/08/23 20:49 Dose: 80 mg Cyanocobalamin (Cyanocobalamin 500 Mcg Tablet) 500 mcg PO DAILY [facility] Last Admin: 08/08/23 10:35 Dose: 500 mcg Famotidine (Famotidine 20 Mg Tablet) 20 mg PO BID [facility] Last Admin: 08/08/23 20:49 Dose: 20 mg Hydralazine HCl (Hydralazine Inj 20 Mg/Ml Vial) 5 mg IVP Q6H PRN PRN Reason: bp > 220/120 Piperacillin Sod/Tazobactam (Sod 3.375 gm/ Sodium Chloride) 100 mls @ 200 mls/hr IV Q8HR [facility] Last Admin: 08/08/23 21:40 Dose: 200 mls/hr Metformin HCl (Metformin 500 Mg Tablet) 500 mg PO BIDWM [facility] Last Admin: 08/08/23 16:38 Dose: Not Given Metoprolol Tartrate (Metoprolol Tartrate 25 Mg Tablet) 50 mg PO BIDWM [facility] Last Admin: 08/08/23 17:25 Dose: 50 mg Multivitamins/Minerals (Multivitamin W/Minerals Tablet) 1 tab PO DAILYWM [facility] Last Admin: 08/08/23 10:35 Dose: 1 tab Ondansetron HCl (Ondansetron 4 Mg/2 Ml Vial) 4 mg IVP Q6HR PRN PRN Reason: Nausea / Vomiting Quetiapine Fumarate (Quetiapine 25 Mg Tablet) 50 mg PO QPM [facility] Last Admin: 08/08/23 20:49 Dose: 50 mg Saccharomyces Boulardii (Saccharomyces Boulardii 250 Mg Capsule) 250 mg PO BIDWM [facility] Last Admin: 08/08/23 17:25 Dose: 250 mg Sodium Chloride (Sodium Chloride Flush 0.9% 10 Ml Syringe) 10 ml IVP 0100,0900,1700 [facility] Last Admin: 08/08/23 17:26 Dose: 10 ml Sodium Chloride (Sodium Chloride Flush 0.9% 10 Ml Syringe) 10 ml IVP PRN PRN PRN Reason: NEEDED PER PROVIDER ORDERS Last Admin: 08/07/23 21:12 Dose: 10 ml Apixaban [Eliquis] 1 tab PO BID 07/28/23 metFORMIN [Glucophage] 1 tab PO BID 07/28/23 Metoprolol Tartrate [Lopressor] 25 mg PO BID 07/29/23
[2023-08-09 05:51] LABS: BUN - BLOOD UREA NITROGEN 18 mg/dL (6-20); CALCIUM 8.7 mg/dL (8.5-10.3); CARBON DIOXIDE - CO2 27 mmol/L (21-32); CHLORIDE 107 mmol/L (101-111); CREATININE 1.1 mg/dL (0.6-1.3); CRP - C-REACTIVE PROTEIN < 0.5 mg/dL (<0.5); GFR - MDRD 64 (>89); GLUCOSE 99 mg/dL (74-104); POTASSIUM 3.8 mmol/L (3.5-4.5); SODIUM 139 mmol/L (135-145)
[2023-08-09] MEDS: PIPERACILLIN/TAZOBACTAM 3.375 GM in SODIUM CHLORIDE 0.9% MINIBAG 100 ML IV SCH (06:14)
[2023-08-09] MEDS: ASPIRIN EC 81 MG TABLET PO SCH (07:55)
[2023-08-09] MEDS: FAMOTIDINE 20 MG TABLET PO SCH (07:55)
[2023-08-09] MEDS: MULTIVITAMIN W/MINERALS TABLET PO SCH (07:56)
[2023-08-09] MEDS: METOPROLOL TARTRATE 25 MG TABLET PO SCH (07:56)
[2023-08-09] MEDS: SODIUM CHLORIDE FLUSH 0.9% 10 ML SYRINGE IVP SCH (07:57)
[2023-08-09] MEDS: CYANOCOBALAMIN 500 MCG TABLET PO SCH (07:57)
[2023-08-09] MEDS: SACCHAROMYCES BOULARDII 250 MG CAPSULE PO SCH (07:57)
[2023-08-09] MEDS: APIXABAN 5 MG TABLET PO SCH (07:57)
[2023-08-09] MEDS: metFORMIN 500 MG TABLET PO SCH (08:17)
--- NOTE | 2023-08-09 10:44 | Discharge Plan ---
"Discharge Plan for SNF / [facility] - Discharge Plan And Transition Orders Problem Reviewed?: Yes Disposition: 03 SNF DC/Xfer Condition: Fair Allergies and Adverse Reactions: Allergies Allergy/AdvReac Type Severity Reaction Status Date / Time No Known Drug Allergies Allergy Verified 07/28/23 15:26 Health Concerns: Elijah Wheatley is a 82-year-old man w/ DM, admitted on July 29, 2023 with complaints of left-sided weakness and right facial droop. While the patient was in the emergency room, a CT scan of the head was performed on July 28, 2023 that was highly suspicious for a subacute infarction involving the right temporal lobe. A brain MRI was performed on July 28, 2023 which revealed a large right temporal lobe infarct without hemorrhage. Echocardiogram performed on August 02, 2023 revealed an LV ejection fraction of 55%. Right ventricular function appears to be normal. There appeared to be no significant valvular heart disease, and no clot or PFO The patient is a Diabetic with a chronic foot ulcer and osteomyelitis in that foot, he had been on oral antibx, being followed by ID, Dr. Rascon. Treatment here was initiated for osteomyelitis of the first metatarsal head of the left fo ot, with iv antibx. Wound culture grew out Pseudomonas that was sensitive to Zosyn. Patient developed delirium shortly after his admission and treatment was initiated with oral Levofloxacin 750 mg daily for his osteomyelitis because the patient kept pulling out his IV. Once his delirium improved, treatment was initiated with iv Zosyn 3.375 [address] Rascon will determine the duration of iv Zosyn treatment. Patient's delirium improved and his left-sided weakness and left-sided neglect has nearly resolved. His poor memory continues. Patient is now stable for transfer to a nursing facility for PT and OT rehabilitation and for iv antibx via PICC line. Plan of Treatment: PT and OT rehabilitation at a SNF. Patient to continue Zosyn for his osteomyelitis during his stay at the nursing home facility If there are questions with regards to his Zosyn, please contact Dr. Duran at the [facility]. Care Goals: Goal is to return to independent functioning at his home, if possible. He is still forgetful and a DMV form to restrict driving has been submitted. He would need to have a repeat driving test to resume driving. If he cannot return home, and daughter want him in LTC. Assessment: Family understands and is agreeable with the plan. - SNF / [facility] Transition Orders Admit to (Facility): [facility] Under the care of (Name): Dr Phuc Zhang Discharge Diagnosis: 1. Cerebrovascular accident 2. Memory difficulties 3. Diabetic foot ulcer 4. Osteomyelitis of foot 5. Pseudomonas aeruginosa infection of foot 6. Peripheral vascular disease 7. Atrial fibrillation 8. Diabetes mellitus type 2 9. Acute urinary retention (resolved) Medicare Certification Statement: I certify that [facility] nursing home care is medically necessary on a continuing basis for any of the conditions for which she/he is receiving care during hospitalization. Notify PCP of admission and forward orders to primary provider for signature. Other Notification Orders: Call PCP immediately if patient develops dyspnea, chest pain/tightness or edema. House Bowel Program: Yes Additional Bowel Program Orders: If no BM after 2 days, nurse may give M.O.M. 30ml PO PRN and/or ducolax Supp 1 [place] and/or MARGIE 250mg P.O., and/or senna 1-2 tabs PO. On day 3 nurse may give repeat above order until residents constipation is resolved. Annual Influenza Vaccine (between Apr 01 and October 29): Yes Two-step PPD per [facility] [phone] or approved exception documents: Yes Treatments & Other Orders: Daily PT and OT. IV antibiotics as per order, via PICC line. Appointment with Dr Rascon at [facility] on 08/10/23. Lab Tests or X-ray Orders: Please obtain a CBC every Tuesday and a CMP every . Please fax the results to Dr. Duran using the following fax #[phone]. Medication Orders: PLEASE REFER TO THE DISCHARGE MEDICATION LIST. Insulin Orders?: Yes - Diet Type: No added sugar Texture: Regular Liquids: Thin May have monthly special meal: Yes - Therapies | Activity Therapy: Evaluation | Treat if indicated: PT, OT Rehabilitation Potential: Maximize functional status Activity: Activity as Tolerated Weight Bearing: Full Weight Assistance Devices: Walker Follow Up: See PCP and Dr Rascon (Infec Dis) after discharge from SNF. Insulin Orders - SNF Basal | Correction | Custom Orders: Diagnosis: Diabetes Initiate hypo and hyperglycemia protocols for BG <70 and BG >375. May check BG PRN for signs/symptoms of dysglycemia. Frequency of BG checks: [AC & HS] Basal Insulin: None Correction Insulin: None Start hypoglycemia protocol"
[2023-08-09 12:01] VITALS: BP 127/81; O2SAT 96
--- NOTE | 2023-08-09 12:03 | DISCHARGE SUMMARY ---
Discharge Summary Admit Date: 07/29/23 Discharge Date: 08/09/23 Discharging Provider: Dr Tamiko Rush Primary Care Provider: Dr Phuc Zhang Code Status: Do Not Attempt Resuscitation Condition at Discharge: Fair Discharge Disposition: 03 SNF DC/Xfer - HPI History of Present Illness: pt brought in to hospital d/t ams and concern for cva. over the last 24 hours, pt has become weak and altered and having complete L sided neglect. EMS reported possible R facial droop. pt's son states his sister came over to parent's house and noticed pt on the couch and awake but not really responsive. had reported that pt was sleepy and tired all day. pt not fully oriented but answer simple questions and denied any chest pain but feels overall confused. pt's son states that pt has a Hx of some type of surgery for a diabetic foot infection, some time back and during that time he also suffered a stroke. pt is normally independent and per son, he was doing fine around kristopher time. - HOSPITAL COURSE Hospital Course: (1) Acute CVA (cerebrovascular accident) The patient presented obtunded, and the signed a DNR form. He awoke after a day, was able to swallow and speak, but had L arm weakness and severe L-sided neglect and worsened memory. His carotid Doppler showed moder bilat carotid disease. Fasting lipids showed an LDL of 110, despite supposedly taking a statin (daughter said she thinks he was not compliant). The Echo showed no clot or PFO. We did not give his oral anticoagulant for 48 hrs to prevent hemorrhagic transformation of the stroke, then resumed it after 48 hrs. He was seen by PT and OT and was discharged for more rehab at a SNF. (2) Poor memory Before this hospitalization, he was driving himself to [facility] for hyperbaric treatment and driving to [facility] for ID speciaist visits and insisted on going alone to his ID appointments. Now he displayed impulsivity and very poor short term memory; he did not agree that he had a stroke, and did not realize that he had L sided neglect, could not remember to get help to stand and walk. He sundowned and needed meds for behavioral disturbances. OT did a cognitive eval on pt and he scored 10/30. A DMV form to prevent him from driving was submitted. (3) Diabetic foot ulcer Hx of foot ulcer and osteo, and both were being treated using Linezolid and Doxycycline and topical Gentamicin cream. The pt had "not allowed" his to see the wound. Dr Duran said she suspected he was not reliable with taking his antibx. A wound swab was sent for culture, and final wound cx result showed Pseudomonas aruginosa, resist to Keflex, sens to all other antibx. His empiric antibx were changed to iv Zosyn. A General Surgery consult was obtained and he needed no debridement. Dr Duran wanted a PICC line inserted and for him to receive a long course of iv antibx, and he was discharged to SNF to get this. (4) Osteomyelitis Dr Duran was contacted and advised a foot XRay be done and it did show osteomyelitis, but no soft tissue involvement except the ulcer. His CRP anjana and was followed. Treatment was managed and arranged by Dr Duran, who wanted a PICC line inserted and for him to receive a long course of iv antibx, and he was disc harged to SNF to get this. (5) Pseudomonas aruginosa infection He had a fever just after admission. His wound culture grew out Pseudomonas. We were in contact with his ID specialist Dr Duran, during this hospital stay. (6) PVD He underwent a left lower extremity fem-pop bypass in May 2023 at [facility] which failed and had to be redone. They used his right arm blood vessel for this. He had a complication of him having a stroke. He has also needed hyperbaric treatment at [facility] which was recently completed. While here, we continued his cardiovascular meds. (7) Afib with RVR At adm HR was 100-120. he needed IV Lopressor and his DOAC was resumed after holding it for 48 hrs. Also we eventually resumed his po meds for rate control (8) DM Type 2 His A1c came back at 6.3, showing good glu control on home regimen. Here he was on a Diabetic diet, we restarted Metformin 500 mg BID, he had fingerstick glucose checks ac&hs and hold parameters were placed for when not to give the Metformin (9) Acute urinary retention He needed a Muro insertion when he was obtunded. D/C'd Muro on 07/31 and he did not have reoccurrence of retention - ALLERGIES Allergies/Adverse Reactions: Allergies Allergy/AdvReac Type Severity Reaction Status Date / Time No Known Drug Allergies Allergy Verified 08/10/23 21:30 - MEDICATIONS Home Medications: Ambulatory Orders Medication Instructions Recorded Confirmed Apixaban [Eliquis] 1 tab PO BID 07/28/23 07/29/23 metFORMIN [Glucophage] 1 tab PO BID 07/28/23 07/28/23 Metoprolol Tartrate [Lopressor] 25 mg PO BID 07/29/23 07/29/23 Acetaminophen [Tylenol] 650 mg PO Q4HR PRN tab 08/08/23 Aspirin EC [Ecotrin] 81 mg PO DAILY tab 08/08/23 Atorvastatin [Lipitor] 80 mg PO QPM tab 08/08/23 Cyanocobalamin [Vitamin B-12] 500 mcg PO DAILY tab 08/08/23 Famotidine [Pepcid] 20 mg PO BID tab 08/08/23 Multivitamin W/Minerals [Theragran 1 tab PO DAILYWM tab 08/08/23 M] Piperacillin/Tazobactam [Zosyn] 3.375 gm IV Q8HR ml 08/08/23 QUEtiapine [SEROquel] 50 mg PO QPM tab 08/08/23 Saccharomyces Boulardii [Florastor] 250 mg PO BIDWM cap 08/08/23 - PHYSICAL EXAM AT DISCHARGE General Appearance: positive: No acute distress, Alert, Other (Tall elderly male. Poorly kempt, disheveled.) Eyes Bilateral: positive: No lid inflammation ENT: positive: ENT inspection nml, No signs of dehydration Neck: positive: Nml inspection, No JVD Respiratory: positive: No respiratory distress, Breath sounds nml Cardiovascular: positive: No murmur, Irregularly irregular Abdomen: positive: Non-tender, Nml bowel sounds, No distention Skin: positive: Warm, Dry Extremities: positive: Non-tender, Other (Bilat 1st metatarsal joints bandaged) Neurologic/Psychiatric: positive: Disoriented to person, Disoriented to time, Other (L sided neglect. Poor short term memory.) - LABS Result Diagrams: 08/06/23 06:01 08/09/23 05:31 - DIAGNOSTIC IMAGING Diagnostic Imaging Results: Final report reviewed - FOLLOW UP Follow Up: See Dr Duran later this month for an office visit. - TIME SPENT Time Spent in Discharge (Minutes): 50
== END 2023-08-09 12:40 | DRG 64 ==
LOC: EDUNIT# → ED 14:49 → ICU 23:35 → MS2 07-31 19:04
PROVIDERS: ADMIT Student in an Organized Health Care Education/Training Program; ATTEND Internal Medicine
PROC: 02HV33Z Insertion of Infusion Device into Superior Vena Cava, Percutaneous Approach (ICD-10-PCS; principal; 2023-08-08)
DX: I63.9 Cerebral infarction, unspecified (principal); J69.0 Pneumonitis due to inhalation of food and vomit; M86.9 Osteomyelitis, unspecified; J18.9 Pneumonia, unspecified organism; R41.4 Neurologic neglect syndrome; Z16.24 Resistance to multiple antibiotics; G83.24 Monoplegia of upper limb affecting left nondominant side; I50.9 Heart failure, unspecified; R29.810 Facial weakness; R29.716 NIHSS score 16; E11.9 Type 2 diabetes mellitus without complications; R41.3 Other amnesia; E11.621 Type 2 diabetes mellitus with foot ulcer; L97.529 Non-pressure chronic ulcer of other part of left foot with unspecified severity; Z79.84 Long term (current) use of oral hypoglycemic drugs; B96.5 Pseudomonas (aeruginosa) (mallei) (pseudomallei) as the cause of diseases classified elsewhere; E11.69 Type 2 diabetes mellitus with other specified complication; E11.51 Type 2 diabetes mellitus with diabetic peripheral angiopathy without gangrene; I48.91 Unspecified atrial fibrillation; R33.9 Retention of urine, unspecified; Z86.718 Personal history of other venous thrombosis and embolism; Z79.01 Long term (current) use of anticoagulants; E11.65 Type 2 diabetes mellitus with hyperglycemia; R41.82 Altered mental status, unspecified; R00.0 Tachycardia, unspecified; R34 Anuria and oliguria; R46.89 Other symptoms and signs involving appearance and behavior; I65.23 Occlusion and stenosis of bilateral carotid arteries; T36.96XA Underdosing of unspecified systemic antibiotic, initial encounter; Z91.128 Patient's intentional underdosing of medication regimen for other reason; Z66 Do not resuscitate
CPT/HCPCS: 36415; 70450; 70496; 70498; 70551; 71045; 73620; 80048; 80053; 80061; 80202; 81001; 82330; 82607; 83036; 83615; 83690; 83735; 83880; 84100; 84132; 84484; 85025; 85610; 85730; 86140; 87040; 87070; 87077; 87150; 87181; 87205; 87637; 93005; 93306; 93880; 96365; 96375; 97116; 97163; 97166; 97530; 97535; 99285; A9270; C1751; J0131; J1650; J1815; J2060; J3370; Q9967; 83721; 87086

== ENCOUNTER 2023-08-10 21:07 | Outpatient (CLI) | payer MEDICARE, OTHER | END 2023-08-10 21:08 | disposition critical access hospital (66) | LOC: EMS 21:07 | DX: Z45.2 Encounter for adjustment and management of vascular access device (principal) | CPT/HCPCS: A0425; A0429 ==

== ENCOUNTER 2023-08-10 21:18 | Emergency (ER) | payer MEDICARE, OTHER ==
--- NOTE | 2023-08-10 21:32 | ED Physician Documentation ---
History of Present Illness - Stated complaint Stated Complaint: PULLED PICC OUT - Chief complaint Chief Complaint: General - History obtained from History obtained from: EMS - Additonal information Additional information: 82yM with pmh dementia currently on antibiotics presents for line placement after patient pulled his picc out tonight. no other issues per staff at nursing facility. PD PAST MEDICAL HISTORY - Past Medical History Past Medical History: Yes Cardiovascular: Deep vein thrombosis Respiratory: Shortness of breath, Sleep apnea Neuro: TIA Endocrine/Autoimmune: Type 2 diabetes GI: None : None Psych: None Musculoskeletal: Scoliosis, Chronic back pain Derm: Other - Past Surgical History Past Surgical History: Yes General: EGD Ortho: Hip replacement Cardiovascular: Vascular surgery - Present Medications Home Medications: Ambulatory Orders Medication Instructions Recorded Confirmed Apixaban [Eliquis] 1 tab PO BID 07/28/23 07/29/23 metFORMIN [Glucophage] 1 tab PO BID 07/28/23 07/28/23 Metoprolol Tartrate [Lopressor] 25 mg PO BID 07/29/23 07/29/23 Acetaminophen [Tylenol] 650 mg PO Q4HR PRN tab 08/08/23 Aspirin EC [Ecotrin] 81 mg PO DAILY tab 08/08/23 Atorvastatin [Lipitor] 80 mg PO QPM tab 08/08/23 Cyanocobalamin [Vitamin B-12] 500 mcg PO DAILY tab 08/08/23 Famotidine [Pepcid] 20 mg PO BID tab 08/08/23 Multivitamin W/Minerals [Theragran 1 tab PO DAILYWM tab 08/08/23 M] Piperacillin/Tazobactam [Zosyn] 3.375 gm IV Q8HR ml 08/08/23 QUEtiapine [SEROquel] 50 mg PO QPM tab 08/08/23 Saccharomyces Boulardii [Florastor] 250 mg PO BIDWM cap 08/08/23 - Allergies Allergies/Adverse Reactions: Allergies Allergy/AdvReac Type Severity Reaction Status Date / Time No Known Drug Allergies Allergy Verified 08/10/23 21:30 - Social History Does the pt smoke?: No Smoking Status: Never smoker Does the pt drink ETOH?: No Does the pt have substance abuse?: No - Immunizations Immunizations are current?: Yes PD ED PE NORMAL - Vitals Vital signs reviewed: Yes - General General: No acute distress, Well developed/nourished, Other (elderly appearing, dementia at baseline) - HEENT HEENT: Atraumatic, PERRL, EOMI - Derm Derm: Normal color, Warm and dry, Other (dislodged PICC, R AC - went ahead and completely removed. New PIV established in L AC) Results - Vitals Vitals: Vital Signs - 24 hr 08/10/23 21:15 Temperature 36.3 C L Heart Rate 94 Respiratory 17 Rate Blood Pressure 153/96 H O2 Saturation 96 Oxygen O2 Source Room air PD Medical Decision Making - ED course ED course: 82yM presents after he accidentally pulled his PICC out tonight. It was completely removed and PIV placed. he will be discharged home to f/u with pcp to coordinate appointment for PICC replacement during the day. Departure - Departure Disposition: 01 Home, Self Care Clinical Impression: Central line complication, PIC line (peripherally inserted central catheter) removal Condition: Stable Comments: You were seen in the emergency department for IV placement and removal of nonfunctioning PICC. Please follow-up with your primary care provider for coordination of new PICC placement and return to the emergency department if you have any new or worsening symptoms or other concerns. Please call ahead if you want to send the patient back to the ED at [facility], since we may not have the ability to place PICC in the ED. Forms: PCP List
[2023-08-10 21:34] VITALS: BP 153/96; O2SAT 96
== END 2023-08-10 21:44 | disposition home or self-care (01) ==
LOC: EDUNIT# → ED 21:18
DX: T82.524A Displacement of infusion catheter, initial encounter (principal); F03.90 Unspecified dementia, unspecified severity, without behavioral disturbance, psychotic disturbance, mood disturbance, and anxiety; E11.9 Type 2 diabetes mellitus without complications; Z86.73 Personal history of transient ischemic attack (TIA), and cerebral infarction without residual deficits; Z79.01 Long term (current) use of anticoagulants; Z79.899 Other long term (current) drug therapy; Z79.84 Long term (current) use of oral hypoglycemic drugs; Z79.82 Long term (current) use of aspirin
CPT/HCPCS: 99283

== ENCOUNTER 2023-08-10 21:45 | Outpatient (CLI) | payer MEDICARE, OTHER | END 2023-08-10 21:46 | LOC: EMS 21:45 | PROVIDERS: ATTEND Emergency Medicine | DX: F03.90 Unspecified dementia, unspecified severity, without behavioral disturbance, psychotic disturbance, mood disturbance, and anxiety (principal); T82.9XXA Unspecified complication of cardiac and vascular prosthetic device, implant and graft, initial encounter | CPT/HCPCS: A0425; A0428 ==

== ENCOUNTER 2023-08-12 15:23 | Outpatient (CLI) | payer MEDICARE, OTHER | END 2023-08-12 15:24 | disposition EMS.NT | LOC: EMS 15:23 | DX: Z03.89 Encounter for observation for other suspected diseases and conditions ruled out (principal) ==

== ENCOUNTER 2023-08-16 08:00 | Outpatient (CLI) | payer MEDICARE, OTHER ==
[2023-08-16 19:01] LABS: BASOPHILS # (AUTO) 0.1 10^3/uL (0.0-0.1); BASOPHILS % (AUTO) 0.8 %; EOSINOPHILS # (AUTO) 0.3 10^3/uL (0.0-0.7); EOSINOPHILS % (AUTO) 3.1 %; HGB - HEMOGLOBIN 14.6 g/dL (14.0-18.0); LYMPHOCYTES % (AUTO) 21.1 %; MEAN CORPUSCULAR HEMOGLOBIN 30.7 pg (27.0-31.0); MEAN CORPUSCULAR HGB CONC 32.4 g/dL (32.0-36.0); MEAN CORPUSCULAR VOLUME 94.7 fL (80.0-94.0); MEAN PLATELET VOLUME 12.5 fL (7.4-11.4); MONOCYTES # (AUTO) 0.9 10^3/uL (0.0-1.0); MONOCYTES % (AUTO) 9.1 %; NEUTROPHILS # (AUTO) 6.3 10^3/uL (1.5-6.6); NEUTROPHILS % (AUTO) 65.6 %; PLT - PLATELET COUNT 254 10^3/uL (130-450); RED BLOOD COUNT 4.75 10^6/uL (4.70-6.10); RED CELL DISTRIBUTION WIDTH 12.8 % (12.0-15.0); WHITE BLOOD COUNT 9.5 x10^3/uL (4.8-10.8)
[2023-08-16 19:11] LABS: ALBUMIN 3.8 g/dL (3.2-5.5); ALBUMIN/GLOBULIN RATIO 1.5 (1.0-2.2); ALKALINE PHOSPHATASE 67 IU/L (42-121); ALT ALANINE AMINOTRANSFERASE 29 IU/L (10-60); AST ASPARTATE AMINOTRANSFERASE 27 IU/L (10-42); BILIRUBIN,TOTAL 0.6 mg/dL (0.2-1.0); BUN - BLOOD UREA NITROGEN 19 mg/dL (6-20); CALCIUM 8.9 mg/dL (8.5-10.3); CARBON DIOXIDE - CO2 26 mmol/L (21-32); CHLORIDE 105 mmol/L (101-111); CRP - C-REACTIVE PROTEIN < 0.5 mg/dL (<0.5); GFR - MDRD 72 (>89); GLUCOSE 148 mg/dL (74-104); POTASSIUM 3.8 mmol/L (3.5-4.5); SODIUM 138 mmol/L (135-145); TOTAL PROTEIN 6.3 g/dL (6.4-8.9)
== END 2023-08-16 23:59 | disposition home or self-care (01) ==
LOC: LAB.R 08:00
PROVIDERS: ATTEND Registered Nurse
DX: I12.0 Hypertensive chronic kidney disease with stage 5 chronic kidney disease or end stage renal disease (principal); N18.6 End stage renal disease; R79.82 Elevated C-reactive protein (CRP); N30.90 Cystitis, unspecified without hematuria; I48.20 Chronic atrial fibrillation, unspecified; R70.0 Elevated erythrocyte sedimentation rate
CPT/HCPCS: 80053; 85025; 85651; 86140

== ENCOUNTER 2023-08-26 02:47 | Outpatient (CLI) | payer MEDICARE, OTHER | END 2023-08-26 23:59 | disposition critical access hospital (66) | LOC: EMS 02:47 | DX: R41.82 Altered mental status, unspecified (principal); R47.1 Dysarthria and anarthria | CPT/HCPCS: A0425; A0429 ==

== ENCOUNTER 2023-08-26 02:52 | Emergency (ER) | payer MEDICARE, OTHER ==
[2023-08-26] MEDS ORDERED: METOPROLOL 5 MG/5 ML VIAL IVP STA (03:08)
--- NOTE | 2023-08-26 03:10 | ED Physician Documentation ---
History of Present Illness - Stated complaint Stated Complaint: AMS - History obtained from History obtained from: EMS - Additonal information Additional information: 82yM with pmh dm, diabetic foot ulcer on fdc antibiotics at [facility], recent hospitalization with discharge 08/09/23 for cva with residual L sided deficit, worsening dementia/intermittent ams since that time, p/w AMS noted by [facility] staff at 2am. patient was staring with mouth open, not speaking, which is different from his norm. He will respond to verbal command to squeeze hands on both sides and is eye tracking intermittently but nonverbal. History limited by patient dementia/AMS. attempted to call [facility] with no response. Review of Systems Unable to obtain: AMS PD PAST MEDICAL HISTORY - Past Medical History Cardiovascular: Hypertension, Deep vein thrombosis, Atrial fibrillation Respiratory: Shortness of breath, Sleep apnea Neuro: Dementia, CVA, TIA Endocrine/Autoimmune: Type 2 diabetes GI: None : None Psych: None Musculoskeletal: Scoliosis, Chronic back pain Derm: Other - Past Surgical History Past Surgical History: Yes General: EGD Ortho: Hip replacement Cardiovascular: Vascular surgery - Present Medications Home Medications: Ambulatory Orders Medication Instructions Recorded Confirmed Apixaban [Eliquis] 1 tab PO BID 07/28/23 07/29/23 metFORMIN [Glucophage] 1 tab PO BID 07/28/23 07/28/23 Metoprolol Tartrate [Lopressor] 25 mg PO BID 07/29/23 07/29/23 Acetaminophen [Tylenol] 650 mg PO Q4HR PRN tab 08/08/23 Aspirin EC [Ecotrin] 81 mg PO DAILY tab 08/08/23 Atorvastatin [Lipitor] 80 mg PO QPM tab 08/08/23 Cyanocobalamin [Vitamin B-12] 500 mcg PO DAILY tab 08/08/23 Famotidine [Pepcid] 20 mg PO BID tab 08/08/23 Multivitamin W/Minerals [Theragran 1 tab PO DAILYWM tab 08/08/23 M] Piperacillin/Tazobactam [Zosyn] 3.375 gm IV Q8HR ml 08/08/23 QUEtiapine [SEROquel] 50 mg PO QPM tab 08/08/23 Saccharomyces Boulardii [Florastor] 250 mg PO BIDWM cap 08/08/23 - Allergies Allergies/Adverse Reactions: Allergies Allergy/AdvReac Type Severity Reaction Status Date / Time No Known Drug Allergies Allergy Verified 08/10/23 21:30 - Social History Does the pt smoke?: No Smoking Status: Never smoker Does the pt drink ETOH?: No Does the pt have substance abuse?: No - Immunizations Immunizations are current?: Yes PD ED PE NORMAL - Vitals Vital signs reviewed: Yes - General General: Other (elderly gentleman, catatonic appearing, with mouth open, staring ahead. Intermittently will eye track staff members. ) - HEENT HEENT: Atraumatic, PERRL, EOMI, Moist mucous membranes, Pharynx benign - Neck Neck: Supple, no meningeal sign - Cardiac Cardiac: Other (tachycardic rate, irregular rhythm) - Respiratory Respiratory: No respiratory distress, Clear bilaterally - Abdomen Abdomen: Non tender, Non distended - Derm Derm: Normal color, Warm and dry - Extremities Extremities: Other (squeezes both hands on command) - Neuro Eye Opening: Spontaneous Motor: Obeys Commands Verbal: None GCS Score: 11 Results - Vitals Vitals: Vital Signs - 24 hr 08/26/23 08/26/23 03:02 03:07 Temperature 36.4 C L Heart Rate 120 H 110 H Respiratory 30 H 23 Rate Blood Pressure 157/99 H 172/101 H O2 Saturation 99 98 Oxygen O2 Source Room air - Labs Labs: Laboratory Tests 08/26/23 03:12 WBC 4.3 L RBC 4.59 L Hgb 14.2 Hct 44.0 MCV 95.9 H MCH 30.9 MCHC 32.3 RDW 13.2 Plt Count 157 MPV 11.7 H Neut # (Auto) 1.7 Lymph # (Auto) 1.5 [place] # (Auto) 1.0 Eos # (Auto) 0.1 Baso # (Auto) 0.0 Absolute Nucleated RBC 0.00 Nucleated RBC % 0.0 PD Medical Decision Making - ED course ED course: 82yM presents with ams after staff found him behaving differently from baseline during bed check at 2am. LSN was yesterday during the day. He is not displaying any lateralizing symptoms that point to CVA specifically, and is also ineligible for tPA given this is a case of waking up with symptoms. More likely this is progression of dementia versus medication induced stupor versus encephalopathy. Plan to undertake medical workup with cbc, abdominal panel, ct head and then reevaluate. Likely plan to discharge home to f/u with pcp if no significant findings. Note that when patient was getting his CT he suddenly began to talk and is behaving at baseline again. He complained of being cold so extra blankets were brought for him. Plan to dc home to [facility] pending results. Departure - Departure Clinical Impression: Delirium Condition: Stable Instructions: Delirium Prevent Comments: Elijah was seen in the emergency department for evaluation of confusion. He began abruptly talking and interacting at his baseline about 30 minutes into his ER visit. He initially was not speaking but was obeying verbal commands. Ct head and labwork was undertaken without any significant findings. Please have him follow-up with his primary care provider and return to the emergency department if you have other concerns.
[2023-08-26 03:19] LABS: BASOPHILS % (AUTO) 0.9 %; EOSINOPHILS # (AUTO) 0.1 10^3/uL (0.0-0.7); EOSINOPHILS % (AUTO) 1.6 %; HGB - HEMOGLOBIN 14.2 g/dL (14.0-18.0); LYMPHOCYTES # (AUTO) 1.5 10^3/uL (1.5-3.5); LYMPHOCYTES % (AUTO) 35.2 %; MEAN CORPUSCULAR HEMOGLOBIN 30.9 pg (27.0-31.0); MEAN CORPUSCULAR HGB CONC 32.3 g/dL (32.0-36.0); MEAN CORPUSCULAR VOLUME 95.9 fL (80.0-94.0); MEAN PLATELET VOLUME 11.7 fL (7.4-11.4); MONOCYTES % (AUTO) 23.8 %; NEUTROPHILS # (AUTO) 1.7 10^3/uL (1.5-6.6); NEUTROPHILS % (AUTO) 38.3 %; PLT - PLATELET COUNT 157 10^3/uL (130-450); RED BLOOD COUNT 4.59 10^6/uL (4.70-6.10); RED CELL DISTRIBUTION WIDTH 13.2 % (12.0-15.0); WHITE BLOOD COUNT 4.3 x10^3/uL (4.8-10.8)
[2023-08-26] MEDS ORDERED: SODIUM CHLORIDE 0.9% 1,000 ML IV STA (03:19)
[2023-08-26 03:33] LABS: ALBUMIN 3.7 g/dL (3.2-5.5); ALBUMIN/GLOBULIN RATIO 1.4 (1.0-2.2); ALKALINE PHOSPHATASE 57 IU/L (42-121); ALT ALANINE AMINOTRANSFERASE 44 IU/L (10-60); AST ASPARTATE AMINOTRANSFERASE 51 IU/L (10-42); BILIRUBIN,TOTAL 0.6 mg/dL (0.2-1.0); BUN - BLOOD UREA NITROGEN 19 mg/dL (6-20); CALCIUM 8.9 mg/dL (8.5-10.3); CARBON DIOXIDE - CO2 28 mmol/L (21-32); CHLORIDE 103 mmol/L (101-111); ETOH - ETHANOL < 10.0 mg/dL; GFR - MDRD 72 (>89); GLUCOSE 88 mg/dL (74-104); LIPASE 40 U/L (11-82); POTASSIUM 3.6 mmol/L (3.5-4.5); SODIUM 138 mmol/L (135-145); TOTAL PROTEIN 6.4 g/dL (6.4-8.9)
[2023-08-26 05:14] VITALS: BP 147/91; O2SAT 98
--- NOTE | 2023-08-26 07:51 | CT Report ---
PROCEDURE: Head WO INDICATIONS: ams, staring, unable to speak. TECHNIQUE: Noncontrast 4.5 mm thick angled axial sections acquired from the foramen magnum to the vertex. For r adiation dose reduction, the following was used: automated exposure control, adjustment of mA and/or kV according to patient size. COMPARISON: CT angiogram of the head and neck dated 07/28/2023, brain MRI with and without contrast dated 07/28/2023 FINDINGS: Image quality: Patient motion artifact. CSF spaces: Basal cisterns are patent. No extra-axial fluid collections. Ventricles are normal in size and shape. Brain: No midline shift. No intracranial masses or hemorrhage. There is extensive posterior fossa a nd posterior inferior supratentorial artifact. Underneath this artifact, there is evidence of recent large right temporal lobe infarct. There is possible subtle high density present within the infarct, either secondary to artifact, or possibly representing subtle expected changes of petechial hemorrhag e. Moderate small vessel ischemic change. Bilateral old basal ganglia lacunar infarctions.. Skull and face: Calvarium and visualized facial bones are intact, without suspicious lesions. Sinuses: Visualized sinuses and mastoids are clear. IMPRESSION: 1. Extensive patient motion artifact. 2. Findings consistent with evolution of a large right temporal infarct. There is either artifact or petechial hemorrhage in the course of infarct evolution. 3. Small vessel ischemic change, old lacunar infarctions. Comment: Brain MRI may be helpful. Findings are concordant with preliminary interpretation provided by [facility]. Reviewed by: Finesse Saucedo MD on 08/26/2023 7:50 AM PST Approved by: Finesse Saucedo MD on 08/26/2023 7:50 AM PST Station ID: [id number]
== END 2023-08-26 05:10 | disposition home or self-care (01) ==
LOC: EDUNIT# → ED 02:52
DX: R41.0 Disorientation, unspecified (principal); I10 Essential (primary) hypertension; I48.91 Unspecified atrial fibrillation; Z79.01 Long term (current) use of anticoagulants; Z86.718 Personal history of other venous thrombosis and embolism; E11.9 Type 2 diabetes mellitus without complications; Z79.84 Long term (current) use of oral hypoglycemic drugs
CPT/HCPCS: 36415; 70450; 80053; 83690; 85025; 96361; 96374; 99283; 99284; G0480; 80320; 82140

== ENCOUNTER 2023-08-26 05:10 | Outpatient (CLI) | payer MEDICARE, OTHER | END 2023-08-26 05:11 | LOC: EMS 05:10 | PROVIDERS: ATTEND Emergency Medicine | DX: G45.9 Transient cerebral ischemic attack, unspecified (principal); R53.1 Weakness | CPT/HCPCS: A0425; A0428 ==

== ENCOUNTER 2023-08-30 07:16 | Outpatient (CLI) | payer MEDICARE, OTHER ==
[2023-08-30 07:21] LABS: BILIRUBIN,URINE NEGATIVE (NEGATIVE); GLUCOSE, URINE (UA) NEGATIVE (NEGATIVE); KETONES,URINE (UA) NEGATIVE (NEGATIVE); LEUKOCYTE ESTERASE, URINE NEGATIVE (NEGATIVE); NITRITE,URINE NEGATIVE (NEGATIVE); OCCULT BLOOD,URINE NEGATIVE (NEGATIVE); PROTEIN,URINE NEGATIVE (NEGATIVE); UROBILINOGEN,URINE 0.2 (NORMAL) E.U./dL (NORMAL)
[2023-08-30 07:22] LABS: CLARITY,URINE CLEAR (CLEAR)
== END 2023-08-30 07:17 | disposition home or self-care (01) ==
LOC: LAB.R 07:16
PROVIDERS: ATTEND Registered Nurse
DX: N39.0 Urinary tract infection, site not specified (principal)
CPT/HCPCS: 81001; 81003

== ENCOUNTER 2023-09-17 03:08 | Outpatient (CLI) | payer MEDICARE, OTHER | END 2023-09-17 03:09 | disposition EMS.NT | LOC: EMS 03:08 | DX: M54.9 Dorsalgia, unspecified (principal) ==

== ENCOUNTER 2023-09-21 19:28 | Outpatient (CLI) | payer MEDICARE, OTHER | END 2023-09-21 23:59 | disposition short-term general hospital (02) | LOC: EMS 19:28 | DX: R41.82 Altered mental status, unspecified (principal); Z66 Do not resuscitate; Z79.01 Long term (current) use of anticoagulants | CPT/HCPCS: A0425; A0429 ==

== ENCOUNTER 2023-09-30 15:12 | Outpatient (CLI) | payer MEDICARE, OTHER | END 2023-09-30 23:59 | disposition critical access hospital (66) | LOC: EMS 15:12 | DX: Z76.89 Persons encountering health services in other specified circumstances (principal) | CPT/HCPCS: A0425; A0429 ==

== ENCOUNTER 2023-09-30 15:18 | Emergency (ER) | payer MEDICARE, OTHER ==
--- NOTE | 2023-09-30 15:33 | ED Physician Documentation ---
History of Present Illness - Stated complaint Stated Complaint: HIGH BP - Chief complaint Chief Complaint: General - History obtained from History obtained from: Patient, EMS - History of Present Illness Timing: Today Pain level max: 0 Pain level now: 0 - Additonal information Additional information: Patient is an 82-year-old male who is brought in from [facility]. History of dementia. EMS states that he was walking at the care home today and decided to go back and rest in his room. Reportedly the nurse said that he normally does not want to rest in his room and so she became worried and checked his blood pressure, found it to be elevated and called 911. Patient has no symptoms. No difficulty speaking, swallowing, breathing, chest pain, focal neurological deficits, headache, falls. No changes to his normal mental status. Patient is DNR, comfort care. Review of Systems Constitutional: denies: Fever, Chills GI: denies: Vomiting, Diarrhea Skin: denies: Rash Musculoskeletal: denies: Neck pain, Back pain Neurologic: denies: Headache PD PAST MEDICAL HISTORY - Past Medical History Cardiovascular: Hypertension, Deep vein thrombosis, Atrial fibrillation Respiratory: Shortness of breath, Sleep apnea Neuro: Dementia, CVA, TIA Endocrine/Autoimmune: Type 2 diabetes GI: None : None Psych: None Musculoskeletal: Scoliosis, Chronic back pain Derm: Other - Past Surgical History Past Surgical History: Yes General: EGD Ortho: Hip replacement Cardiovascular: Vascular surgery - Present Medications Home Medications: Ambulatory Orders Medication Instructions Recorded Confirmed Apixaban [Eliquis] 1 tab PO BID 07/28/23 09/30/23 metFORMIN [Glucophage] 1 tab PO BID 07/28/23 09/30/23 Metoprolol Tartrate [Lopressor] 25 mg PO BID 07/29/23 09/30/23 Acetaminophen [Tylenol] 650 mg PO Q4HR PRN tab 08/08/23 09/30/23 Aspirin EC [Ecotrin] 81 mg PO DAILY tab 08/08/23 09/30/23 Atorvastatin [Lipitor] 80 mg PO QPM tab 08/08/23 09/30/23 Cyanocobalamin [Vitamin B-12] 500 mcg PO DAILY tab 08/08/23 09/30/23 Famotidine [Pepcid] 20 mg PO BID tab 08/08/23 09/30/23 Multivitamin W/Minerals [Theragran 1 tab PO DAILYWM tab 08/08/23 09/30/23 M] QUEtiapine [SEROquel] 50 mg PO QPM tab 08/08/23 09/30/23 Saccharomyces Boulardii [Florastor] 250 mg PO BIDWM cap 08/08/23 09/30/23 - Allergies Allergies/Adverse Reactions: Allergies Allergy/AdvReac Type Severity Reaction Status Date / Time No Known Drug Allergies Allergy Verified 09/30/23 15:31 - Social History Does the pt smoke?: No Smoking Status: Never smoker Does the pt drink ETOH?: No Does the pt have substance abuse?: No - Immunizations Immunizations are current?: Yes PD ED PE NORMAL - Vitals Vital signs reviewed: Yes - General General: No acute distress, Well developed/nourished, Other (Alert, oriented to person and place, not to time) - HEENT HEENT: Atraumatic, PERRL, EOMI, Moist mucous membranes - Neck Neck: Supple, no meningeal sign - Cardiac Cardiac: RRR - Respiratory Respiratory: No respiratory distress, Clear bilaterally - Abdomen Abdomen: Soft, Non tender, Non distended - Back Back: No spinal TTP - Derm Derm: Warm and dry - Extremities Extremities: No edema - Neuro Neuro: hydrogeology professor 2-12 intact, No motor deficit, No sensory deficit, Normal speech Eye Opening: Spontaneous Motor: Obeys Commands Verbal: Confused (Baseline mental status) GCS Score: 14 Results - Vitals Vitals: Vital Signs - 24 hr 09/30/23 09/30/23 15:23 16:51 Temperature 36.3 C L 36.7 C Heart Rate 94 87 Respiratory 18 18 Rate Blood Pressure 185/107 H 172/98 H O2 Saturation 98 96 Oxygen O2 Source Room air - Labs Labs: Laboratory Tests 09/30/23 09/30/23 09/30/23 15:55 15:55 16:00 WBC 8.6 RBC 4.34 L Hgb 13.6 L Hct 42.0 MCV 96.8 H MCH 31.3 H MCHC 32.4 RDW 14.6 Plt Count 222 MPV 11.2 Neut # (Auto) 5.8 Lymph # (Auto) 1.6 [place] # (Auto) 1.0 Eos # (Auto) 0.2 Baso # (Auto) 0.1 Absolute Nucleated RBC 0.00 Nucleated RBC % 0.0 Sodium 140 Potassium 3.2 L Chloride 104 Carbon Dioxide 26 Anion Gap 10.0 BUN 31 H Creatinine 0.9 Estimated GFR (MDRD) 81 L Glucose 103 Calcium 9.5 Urine Color YELLOW Urine Clarity CLEAR Urine pH 5.5 Ur Specific [place] 1.025 Urine Protein NEGATIVE Urine Glucose (UA) NEGATIVE Urine Ketones TRACE Urine Occult Blood NEGATIVE Urine Nitrite NEGATIVE Urine Bilirubin NEGATIVE Urine Urobilinogen 0.2 (NORMAL) Ur Leukocyte Esterase NEGATIVE Ur Microscopic Review NOT INDICATED Urine Culture Comments NOT INDICATED PD Medical Decision Making - ED course Complexity details: reviewed results, re-evaluated patient, considered differential, d/w patient ED course: Attempted to contact [facility] to obtain more history from the nurse as it is unclear why the patient is here. Has a longstanding history of hypertension, blood pressures are frequently 150, 170, 180 systolic. This does not appear to be an acute condition. Patient denies any symptoms. Normal neurological exam. No fevers. No chills. No recent illnesses. No vomiting. Ambulating well in the emergency department. Eventually we were able to get a hold of the care home. The care home states that he had difficulty getting up out of his chair which is what made them concerned in addition to the high blood pressure. When the patient arrived in the emergency department, he got up off of the stretcher walked across the room and sat onto the bed on his own. Patient is asymptomatic here. No focal neurological deficits. NIH stroke scale is 0. Ambulating without any difficulty in the emergency department unassisted. Normal steady gait. Patient did have mild hypokalemia and this was replaced. No indication for further emergent workup at this time. This document was made in part using voice recognition software. While efforts are made to proofread this document, sound alike and grammatical errors may occur. Departure - Departure Disposition: 01 Home, Self Care Clinical Impression: Hypokalemia Hypertension Qualifiers: Hypertension type: unspecified Qualified Code(s): I10 - Essential (primary) hypertension Condition: Good Instructions: ED HTN Established Follow-Up: your,doctor in 1 week [Other] Comments: Continue your current medications at home. Your laboratory testing does not show any significant abnormalities today, your potassium is mildly decreased and this was replaced. You are ambulating without any difficulty in the emergency department on your own. Please follow-up with your doctor for further care. Forms: PCP List
[2023-09-30 16:05] LABS: BASOPHILS # (AUTO) 0.1 10^3/uL (0.0-0.1); BASOPHILS % (AUTO) 0.8 %; EOSINOPHILS # (AUTO) 0.2 10^3/uL (0.0-0.7); EOSINOPHILS % (AUTO) 2.2 %; HGB - HEMOGLOBIN 13.6 g/dL (14.0-18.0); LYMPHOCYTES # (AUTO) 1.6 10^3/uL (1.5-3.5); LYMPHOCYTES % (AUTO) 18.3 %; MEAN CORPUSCULAR HEMOGLOBIN 31.3 pg (27.0-31.0); MEAN CORPUSCULAR HGB CONC 32.4 g/dL (32.0-36.0); MEAN CORPUSCULAR VOLUME 96.8 fL (80.0-94.0); MEAN PLATELET VOLUME 11.2 fL (7.4-11.4); NEUTROPHILS # (AUTO) 5.8 10^3/uL (1.5-6.6); NEUTROPHILS % (AUTO) 67.4 %; PLT - PLATELET COUNT 222 10^3/uL (130-450); RED BLOOD COUNT 4.34 10^6/uL (4.70-6.10); RED CELL DISTRIBUTION WIDTH 14.6 % (12.0-15.0); WHITE BLOOD COUNT 8.6 x10^3/uL (4.8-10.8)
[2023-09-30 16:10] LABS: BILIRUBIN,URINE NEGATIVE (NEGATIVE); GLUCOSE, URINE (UA) NEGATIVE (NEGATIVE); KETONES,URINE (UA) TRACE mg/dL (NEGATIVE); LEUKOCYTE ESTERASE, URINE NEGATIVE (NEGATIVE); NITRITE,URINE NEGATIVE (NEGATIVE); OCCULT BLOOD,URINE NEGATIVE (NEGATIVE); PH,URINE 5.5 PH (5.0-7.5); PROTEIN,URINE NEGATIVE (NEGATIVE); UROBILINOGEN,URINE 0.2 (NORMAL) E.U./dL (NORMAL)
[2023-09-30 16:13] LABS: CLARITY,URINE CLEAR (CLEAR)
[2023-09-30 16:21] LABS: CALCIUM 9.5 mg/dL (8.5-10.3); CREATININE 0.9 mg/dL (0.6-1.3); POTASSIUM 3.2 mmol/L (3.5-4.5)
[2023-09-30] MEDS: POTASSIUM BICARB 25 MEQ TABLET PO STA (16:37)
[2023-09-30 16:54] VITALS: BP 172/98; O2SAT 96
== END 2023-09-30 18:06 | disposition home or self-care (01) ==
LOC: EDUNIT# → ED 15:18
DX: I10 Essential (primary) hypertension (principal); F03.90 Unspecified dementia, unspecified severity, without behavioral disturbance, psychotic disturbance, mood disturbance, and anxiety; E87.6 Hypokalemia; I48.91 Unspecified atrial fibrillation; Z66 Do not resuscitate; Z79.01 Long term (current) use of anticoagulants; Z79.84 Long term (current) use of oral hypoglycemic drugs; Z79.899 Other long term (current) drug therapy
CPT/HCPCS: 36415; 80048; 81003; 85025; 99283; A9270; 81001; 87086